=== PATIENT | male | born 1940 | race Caucasian/White ===

== ENCOUNTER → 2018-06-24 11:58 | Outpatient (CLI) | payer MEDICARE, OTHER, SELFPAY ==
--- NOTE | 2018-06-24 | DI.MRI.S_ITS ---
PROCEDURE: MR CERVICAL SPINE WO CON INDICATIONS: CERVICAL RADICULAPTHY TECHNIQUE: Noncontrast sagittal T1 spin echo and T2 fast spin echo, sagittal STIR, foraminal oblique sagittal T2 fast spin echo, and axial gradient echo or T2 fast spin echo through the cervical spine. COMPARISON: MR, C-SPINE WITHOUT CONTRAST, 12/03/2006, 12:52. FINDINGS: Image quality: Excellent. Alignment and Curvature: There is normal bony alignment. Bone Marrow: Marrow demonstrates normal overall signal. Spinal Cord: Visualized spinal cord has normal size and signal. No cerebellar tonsillar herniation. Paraspinous Soft Tissues: No paravertebral masses. Prevertebral soft tissues are normal in thickness. C2-C3: Loss of disc signal and height. No central stenosis. Mild bilateral facet hypertrophy. Mild bilateral neural foraminal narrowing. No neural impingement. C3-C4: Loss of disc signal and mild loss of disc height. Mild, diffuse disc bulge and mild right and severe left facet hypertrophy. No central stenosis. Mild bilateral uncovertebral joint hypertrophy. Moderate bilateral neural foraminal narrowing. No neural impingement. C4-C5: Loss of disc signal and height. Mild diffuse disc bulge. Mild right and moderate left facet hypertrophy. Mild bilateral uncovertebral joint hypertrophy no central stenosis. Moderate right and severe left neural foraminal narrowing with flattening deformity exiting left C5 nerve root. C5-C6: Loss of disc signal and height. Moderate, diffuse disc bulge. Mild ligamentum flavum hypertrophy. Mild bilateral facet hypertrophy. Mild bilateral uncovertebral joint hypertrophy. Severe narrowing of the central canal with slight flattening deformity of the cervical spinal cord. Severe bilateral neural foraminal narrowing and flattening deformity exiting C6 nerve roots. C6-C7: Loss of disc signal and height. Mild, diffuse disc bulge. Mild bilateral facet hypertrophy. Mild bilateral uncovertebral joint hypertrophy. No central stenosis. Severe bilateral neural foraminal narrowing with flattening deformity exiting C7 nerve roots. C7-T1: Loss of the signal. Mild, diffuse disc bulge. No central stenosis. No neural foraminal narrowing. No neural impingement. IMPRESSION: 1. Multilevel degenerative disc disease. 2. Multilevel facet arthropathy and uncovertebral joint hypertrophy. 3. Severe C5-C6 central canal narrowing. 4. Severe bilateral C5-C6 and C6-C7 neural foraminal narrowing. Moderate right and severe left C4-C5 neural foraminal narrowing. Moderate bilateral C3-C4 neural foraminal narrowing. Mild bilateral C2-C3 neural foraminal narrowing. 5. Slight flattened deformity of the exiting left C5 nerve root on the exiting bilateral C6 nerve roots and the exiting bilateral C7 nerve roots secondary to neural foraminal narrowing. Please correlate with clinical data. Dictated by: Laine Temple MD, PhD on 06/24/2018 at 15:23 Approved by: Laine Temple MD, PhD on 06/24/2018 at 16:17
--- NOTE | 2018-06-24 | DI.CT.S_ITS ---
PROCEDURE: CT LUMBAR SPINE WO CON INDICATIONS: Bilateral leg radicular pain TECHNIQUE: Noncontrast 3 mm thick sections acquired from the T12 level to the sacrum. Sagittal and coronal reformats were constructed. For radiation dose reduction, the following was used: automated exposure control. COMPARISON: A prior lumbar spine MRI is not available for review from the archive at the time of this dictation. FINDINGS: Image quality: Excellent. Bones: No acute vertebral body compression fractures. No suspicious lytic or blastic bony lesions. Central spinal caliber is of normal overall caliber. No pars defects. Moderate S-shaped scoliosis is seen, with a primary dextroconvex thoracolumbar component. Minimal retrolisthesis is seen at L1-L2. There is mild grade 1 anterolisthesis at the L5-S1 level. Postoperative changes are seen at the L5-S1 level, with bilateral pedicle screws. The left L5 screw is seen involving the L4-L5 disc. Left L1 screw is superiorly angled and partially involves the L5-S1 disc. The right-sided screws appear well placed. Vertical fixation rods are seen. No jose findings of hardware failure or hardware loosening are seen. Bone grafting material is noted. There has been removal of portions of the posterior elements. T12-L1: There is moderate to severe loss of disc height seen on the left. Vacuum disc phenomenon is seen at this level. Mild to moderate disc bulge is seen. Endplate irregularity and sclerosis can be seen, including bridging left-sided endplate osteophytes. There is moderate to severe left-sided and mild to moderate right-sided neural foraminal narrowing. Mild to moderate central canal narrowing is seen. L1-L2: Mild loss of disc height is seen. Vacuum disc phenomenon is seen at this level. Moderate generalized disc bulge is seen. Moderate bilateral neural foraminal narrowing is seen. Moderate foraminal mild to moderate central canal narrowing is seen. L2-L3: The disc height is relatively well-preserved. Mild generalized disc bulge is seen. Moderate facet joint hypertrophy is seen. There is moderate bilateral neural foraminal narrowing seen, right worse than left. At least moderate central canal narrowing is seen. L3-L4: Moderate to severe loss of disc height is seen on the right side. Vacuum disc phenomenon is seen at this level. Endplate irregularity and sclerosis can be seen. Bridging endplate osteophytes are seen on the right side. There is moderate to severe right-sided and at least moderate left-sided neural foraminal narrowing. Moderate to severe central canal narrowing is seen. L4-L5: The disc height is relatively well-preserved. Moderate generalized disc bulge is seen. Moderate to severe bilateral neural foraminal narrowing is seen. Moderate to severe central canal narrowing is seen. L5-S1: Partial vertebral body fusion can be seen posteriorly. There is mild to moderate loss of disc height. Postoperative changes are seen at this level. There is moderate to severe left-sided and at least moderate right-sided neural foraminal narrowing seen. No significant central canal narrowing is seen. There is fusion of the left sacroiliac joint anteriorly, as on series 2 image 75. Soft tissues: No retroperitoneal masses or hematomas. Prominent sigmoid diverticulosis is seen. No jose findings of active diverticulitis can be seen. Visualized aorta is normal in caliber. Atherosclerotic calcification is noted. IMPRESSION: S-shaped scoliosis and associated degenerative changes. The degenerative changes are most prominent at the L3-L4 and L4-L5 levels. Postoperative changes are seen at the L5-S1 level, including superior placement/angulation of the screws. Left sacroiliac joint fusion is seen. Prominent sigmoid diverticulosis is incidentally noted. Dictated by: Kevan Lacey M.D. on 06/24/2018 at 13:11 Approved by: Kevan Lacey M.D. on 06/24/2018 at 13:21
== END ==
PROVIDERS: PCP Family Medicine; Visit Provider Orthopaedic Surgery Orthopaedic Surgery of the Spine
DX: M50.11 Cervical disc disorder with radiculopathy, high cervical region (principal); M47.22 Other spondylosis with radiculopathy, cervical region; M48.02 Spinal stenosis, cervical region
CPT/HCPCS: 72131; 72141

== ENCOUNTER 2018-10-10 06:01 | Inpatient (IN) | payer MEDICARE, OTHER, SELFPAY ==
[2018-09-15 12:53] VITALS: BMI 26.9
[2018-10-10] VITALS (16 sets, daily range): BP systolic 121–170; BP diastolic 56–91; PULSE 71–97; RESP 9–17; TEMP 36.2–37.1; O2SAT 92–99; BMI 25.7
[2018-10-10] MEDS: LACTATED RINGERS 1,000 ML 42 ML IV ×2 (07:17→09:45)
--- NOTE | 2018-10-10 07:46 | PM.PREOP ---
Pre-operative Note Interval Note History & Physical reviewed/Exam performed by Physician: Yes Changes to H&P: No
--- NOTE | 2018-10-10 08:30 | SUR.OPER ---
Prone on spine table, head in foam head support, padded chest and pelvic supports, gel pad at knees, lower legs supported by pillows; nipples, genitalia and toes free of pressure, arms secured on foam padded arm boards at <90 degrees abduction. Tape over blanket at thigh secured to table.
[2018-10-10] MEDS: BUPIVACAINE 0.25% W/ EPI VIAL 30 ML INJ (08:42)
[2018-10-10] MEDS: CEFAZOLIN 2 GM/100 ML FROZ.PIGGY IV ×2 (08:46→18:17)
[2018-10-10] MEDS: BUPIVACAINE LIPOSOME 266 MG/20 ML VIAL INJ (11:22)
--- NOTE | 2018-10-10 13:29 | P.OP_ITS ---
Operative Date/Time/Diagnoses Date of procedure: 10/10/18 Time of procedure: 08:20 Pre-op diagnosis: 1. L3-4, L4-5, L5-S1 spinal stenosis 2. Hardware loosening L5 and S1 3. Lumbar scoliosis 4.Hx of L5-S1 fusion with pseudoarthrosis Post-op diagnosis: same Procedure & Clinicians Procedure: 1. L3-4 L4-5 Postero-lateral and posterior interbody fusion 2. L3-4 L4-5 interbody cage placement. 3. L3-4 L4-5 decompressive laminectomy with bilateral facetecomies 4. L3-4 L4-5 L5-S1 Posterior segmental instrumentation 5. L5-S1 posterior non-segmental hardware removal 6. L5-S1 exploration of fusion with left hemilaminectomy 7. L5-S1 posterolateral fusion 8. [employer] of bone marrow from iliac crest 9. Utilization of microsurgical technique and operating microscope Same procedure as scheduled: Yes Indications: Patient has been having chronic back pain and worsening lumbar radiculopathy. Patient had history of lumbar instrumented fusion more than 10 years ago with progressively worsening pain and CT showing loosening of hardware and pseudoarthrosis. Patient failed multiple conservative management with worsening pain weakness and numbness in her lower extremity. Patient has been having difficulty performing activity of daily living. After discussing risks benefits of treatment options, patient elected proceed with surgery. Surgeon: Lm Rashid Nature Photographer: Lucrecia Kim Click Yes if Unassisted: Yes Anesthesia Type: General Operative Notes Closure Type: primary Specimen(s): none sent Prosthetic devices, grafts, tissues, transplants, or devices: Globus Revolve screws, Rise cages Applied: catheter Estimated Blood Loss (mL): 150 Blood products transfused: none Procedure in detail: Patient was seen in the preoperative area. Risks and benefits of the surgery was discussed with the patient. Informed consent was obtained from the patient and placed in the chart. Surgical site was marked. Patient was taken to the operative room. General anesthesia was administered. Prophylactic antibiotic was given to the patient less than 30 min before the incision was made. Patient was placed into a prone position on the Tripp table. Patient's back was then prepped and draped in the sterile fashion. Time- out was performed at this time. Using patient's previous scar incision was made over the L3-S1 interval on the left side. Fascia was incised in line with skin incision. Patient's previously placed hardware over the L5-S1 level was identified by dissecting down to the level the hardware using a Bovie and a Frank. The locking caps which was removed using globus screwdriver. The locking adiel was then removed from the tulips of the pedicle screws using a Jennie. The pedicle screws were then removed using the screwdriver. The screws were found to have poor purchase. The Globus and MARS retractors was then placed into the wound and docked onto the L3 and L4 lamina using C-arm guidance. Using microsurgical technique and operating microscope a laminectomy facetectomy was performed by removing the L3 and L4 lamina and the L3-4 and L4-5 facet. The disc space at L3-4 L4-5 level was identified next. And a total diskectomy was performed at L3-4 L4-5 level. The endplates were decorticated using a rasp and shaver. Patient was found have severe neural foramen stenosis as well as central stenosis. More than 75% of bilateral facets removed during the process of decompression rendering the lumbar spine further unstable at the L3-4 L4-5 level. Patient required a fusion all 3 levels. The total diskectomy and decortication was performed at L3-4 L4-5 level in order to to accomplish a L3-4 L4-5 fusion. The local bone from the laminectomy and facetectomy was saved for local bone grafting. After the total diskectomy and decortication was completed, Bio4 bone graft material was combined with local bone that was harvested earlier. At this time, a separate skin is incision was made over the iliac crest. A Jamshidi needle was inserted into the iliac crest through a separate skin incision. 5 cc of bone marrow aspiration was obtained through the separate skin incision using a Jamshidi needle from the iliac crest. The bone marrow aspiration was combined with local bone and the Bio4 bone grafting material. The bone grafting material was placed into the L3-4 L4-5 interbody space along with a expandable cage. The cage was expanded to its maximum height using the torque limiting screwdriver. At this time a mirror image incision was made on the right side. The fascia was incised in line with the skin incision. Patient's previously placed hardware on the right side was then removed in the same fashion as it was on the left side. The hardware was also found to have poor purchase. The fusion mass on the right side was exposed by performing a right-sided hemilaminectomy at L5-S1 level. The hemilaminectomy was performed using the Kerrison rongeur to undercut the lamina as well removing additional epidural scar tissue for purpose of decompressing the epidural space. The fusion mass was explored and was found have visible motion indicating pseudoarthrosis. Globus MARS retractor was inserted and docked onto the L3-4 L4-5 L5-S1 posterolateral gutter. Using the power drill, posterior-lateral decortication was performed at L3-4 L4-5 L5-S1 level until bleeding cortical bone was identified. The remaining bone grafting material was placed into the L3-4 L4-5 L5-S1 posterior lateral gutter he order to accomplish posterolateral fusion at the L3-4-L4-5 L5-S1 level. Using the double C-arm technique, pedicle screws were placed into the L3-L4 L5 and S1 pedicles bilaterally. This was done by placing the Jamshidi needle into the pedicles, then placing the guidewires over the Jamshidi needle, and finally placing the cannulated screws over the guidewires bilaterally. After the pedicle screws were placed, 2 titanium rods was locked into the heads of the pedicle screws using locking caps and torque limiting screwdriver. The right L5 pedicle screw was found to have poor purchase after multiple insertions and was removed from the pedicle. After all the hardware was placed, and confirmed with AP and lateral C-arm imaging, the wound was then irrigated with sterile normal saline and packed with Ray-Brittney gauze for 3 min to accomplish hemostasis. After the gauze was removed the deep fascia was closed with #1 Vicryl suture. The subcutaneous layer was closed with 2-0 Vicryl. The skin was closed with skin nilton. Patient tolerated the procedure well. There were no complications. Complications: none Condition: stable Disposition: PACU Plan for aftercare: Admit to inpatient hospital
--- NOTE | 2018-10-10 13:34 | DI.RAD.S_ITS ---
PROCEDURE: XR LUMBAR SPINE 2-3V INDICATIONS: L3-4, L4-5 TLIF. L5-S1 DONE ELSEWHERE. TECHNIQUE: 2 views of the lumbar spine were acquired. COMPARISON: [facility], CT, CT LUMBAR SPINE WO CON, 06/24/2018, 12:16. FINDINGS: 2 limited intraoperative fluoroscopically stored images of the lower lumbar spine were obtained for intraoperative hardware localization purposes. These images are not meant for diagnostic purposes. Intraoperative findings related to a lumbosacral revision/fusion procedure are present. IMPRESSION: Intraoperative images obtained during the patient's lumbar fusion procedure. Dictated by: Tera York M.D. on 10/10/2018 at 13:08 Approved by: Tera York M.D. on 10/10/2018 at 13:10
[2018-10-10] MEDS: HYDROMORPHONE 2 MG INJ 0.5 MG IV ×3 (14:02→14:51)
[2018-10-10] MEDS: hydrOXYzine 50 MG/ML INJ 25 MG IM (14:21)
[2018-10-10] MEDS: LORazepam 2 MG/ML SYRINGE 0.5 MG IV (14:30)
--- NOTE | 2018-10-10 15:06 | SUR.PHASEI ---
Note regarding skin around surgical site: A red squared boarder is noted around the surgical site around dressing. Red and blanchable; no blisters or open sores noted.
[2018-10-10] MEDS: SODIUM CHLORIDE 0.9% 1,000 ML 100 ML IV (16:09)
[2018-10-10] MEDS: hydrOXYzine pamoate 25 MG CAPSULE PO ×2 (17:11→21:59)
[2018-10-10] MEDS: OXYCODONE IR 5 MG TABLET 10 MG PO ×2 (17:11→20:27)
[2018-10-10] MEDS: HYDROMORPHONE 1 MG INJ 0.5 MG IV ×2 (18:19→21:59)
[2018-10-10] MEDS: DOCUSATE 100 MG CAPSULE PO (20:28)
[2018-10-10] MEDS: SENNOSIDES 8.6 MG TABLET 17.2 MG PO (20:28)
[2018-10-11] VITALS (12 sets, daily range): BP systolic 113–165; BP diastolic 63–91; PULSE 73–94; RESP 12–20; TEMP 36.7–38.3; O2SAT 94–98
[2018-10-11] MEDS: OXYCODONE IR 5 MG TABLET 10 MG PO (00:14)
[2018-10-11] MEDS: SODIUM CHLORIDE 0.9% 1,000 ML 100 ML IV (01:55)
[2018-10-11] MEDS: CEFAZOLIN 2 GM/100 ML FROZ.PIGGY IV (03:21)
--- NOTE | 2018-10-11 04:31 | PC.NURSE ---
pt AO and receptive to care. Took over care for pt around 0100. Mac draining to gravity. NS infusing at 100/hr. Patient reports pain of 3-4/10 while still and states it can hit 10/10 with movement. Pain medications administered prior to my care at 0015. Patient hesitant and refuses to reposition to his side, although he reports sleeping better on either side vs his back. Patient reporting the IV pump is being to loud so there is a sheet draped over it in hopes to decrease residual noise. CMS intact (baseline tingling in all extremities per pt). At 0400, pt reported feeling bubbles go through IV tubing and into arm and is very concerned. I assessed the lines, his IV site, and flushed but all looked well. I offered earplugs but pt declined. Cefazolin infused late at 0300 since the first post-op dose was almost 3 hours late. pt tolerated ABX infusion well.
[2018-10-11 06:24] LABS: Hematocrit 37.7 % (41-53); Hemoglobin 12.7 g/dL (13.5-17.5)
--- NOTE | 2018-10-11 07:58 | PM.PNPO.1 ---
Subjective Date Patient Seen: 10/11/18 Interval history: Patient seen bedside s/p L5-S1 Lumbar HWR,Explor fusion,Repeat Lami,Reinsertion HWR,L3-4,L4-5,L5-S1 TLIF by Dr[address] Rashid on 10/10/18. Patient is POD #1. He is doing well, he is having lower back pain but that it was not unexpected. He denies CP, SOB, nausea/vomiting, and numbness/tingling. He has not been up with therapy yet. Exam Vital Signs (past 8 hours): - 10/11/18 00:20 10/11/18 03:30 Temperature 98.1 F 98.8 F Pulse Rate 87 73 Respiratory Rate 12 16 Blood Pressure 165/78 H 147/65 H Pulse Oximetry 98 94 Oxygen Delivery Method Room Air Oxygen Flow Rate 0 Narrative Exam Narrative: Well-developed, well-nourished, no acute distress. Alert and oriented to person, place, and time. Dressing on lumbar spine is clean, dry, and intact with no signs of drainage. Minimal erythema and generalized swelling around the surgical site. Neurovascularly intact in bilateral lower extremities with soft and compressible calves. Range of motion intact bilateral lower extremities. Objective Labs Result Diagrams: 10/11/18 06:03 Labs: Laboratory Results - last 24 hr 10/11/18 06:03 Hgb 12.7 L Hct 37.7 L Assessment & Plan Post-op Postoperative Procedures Operation Date: 10/10/18 07:45 Actual Procedures Side Surgeon p L5-S1 Lumbar HWR,Explor fusion,Repeat Lami,Reinsertion HWR,L3-4,L4-5,L5-S1 TLIF Lm Rashid MD 1. POD #1 s/p above procedure-continue with pain management, up with therapy, bowel regiment. Dispo-based on PT clearance and pain control, probably in the next two days. Quality VTE Deep Vein Thrombosis/Pulmonary Embolism Present on Admission: No
--- NOTE | 2018-10-11 08:55 | CM.DANOTE ---
DCP: Case received, EMR reviewed and met with patient. Introduced self and role. DCP template completed with information currently available. Patient is a 78 year old male who admitted yesterday morning to the care of the surgical team. PCP: Dr. Sethi. Payer: confirmed; Medicare/1-4 All. Patient came to hospital for surgical procedure. Had Postero-lateral L3-4, L4-5 fusion. Patient has had history of prior lumbar fusion in 2006 at [facility]. Met with patient in room. He stated, that they really messed up the procedure then, and this has caused me to have increased pain. Patient is alert and oriented. Lives alone on [place], but did state that he has supportive friends. 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 He stated that he uses no walker or cane. Stated that his big issue has been increased back pain, and has gotten harder to walk and stand for prolonged time. He stated that he has no concerns about going home after surgery, his friends can help if he needs them. Is aware that he will be working with physical therapy to see how he progresses here. Main issue for him is pain control at this time. P: DCP to continue to assess. Will see how he progresses with physical therapy before making determination of going home. Yamile Manley RN/Personnel Associate
[2018-10-11] MEDS: DOCUSATE 100 MG CAPSULE PO ×2 (08:56→19:56)
--- NOTE | 2018-10-11 09:55 | PT.IIE ---
Current Diagnoses Other secondary scoliosis, lumbar region (10/10/18) Spinal stenosis, lumbar region without neurogenic claudication (10/10/18) Unspecified fracture of unspecified lumbar vertebra, initial encounter for closed fracture (10/10/18) Other mechanical complication of other internal orthopedic devices, implants and grafts, initial encounter (10/10/18) Surgery Performed Operation Date: 10/10/18 07:45 Actual Procedures p L5-S1 Lumbar HWR,Explor fusion,Repeat Lami,Reinsertion HWR,L3-4,L4-5,L5-S1 TLIF - Lm Rashid MD Surgical History (Last Updated 09/15/18 @ 13:18 by Елена Ireland, RN) History of lumbar fusion (Acute ~2006) Hx of hernia repair (Acute) Hx of shoulder surgery (Acute ~2004) Hx of tonsillectomy (Acute) Medical History (Last Updated 09/15/18 @ 13:20 by Елена Ireland RN) Anxiety (Acute ~2001) Arrhythmia (Acute) Arthritis (Acute) Chest pain (Acute) Chronic low back pain (Acute) Depression (Acute ~2001) Diverticulitis (Acute) Diverticulosis (Acute) Fragile skin (Acute) HTN (hypertension) (Acute) Hip pain, bilateral (Acute) Hyperlipidemia (Acute) Knee pain, bilateral (Acute) LBBB (left bundle branch block) (Acute) Neck pain (Acute) PVC's (premature ventricular contractions) (Acute) Pneumonia (Acute) Post-nasal drip (Acute) Scarring (Acute) Thoracogenic scoliosis, thoracolumbar region (Acute) Physical Therapy Inpatient Evaluation/Re-Eval M1 PT/OT-IP Prior Functional Status Start: 10/11/18 10:27 Freq: NEEDED Status: Active Protocol: Document 10/11/18 10:24 [facility] (Rec: 10/11/18 10:40 [facility] [id number]) Medical Review Prior Functional Status Medical History Reviewed Yes Mobility and Gait mod. indep. with SPC or walking stick Activities of Daily Living and IADL's mod. indep I/ADLs Social History Household Members none Living Arrangements House Number of Floors (Floors) Two Floors Number of Stairs To Enter/Railing? 5 SE L rail ascending. Pt states he will stay on main level, has [place] shower with a threshold to step in. Lives alone Home Environment Standard Height Toilet Walk in Shower Home Equipment Straight Cane Additional Social History Comment Pt states friends can stop by to assist but will not stay with him. His neighbor may have a 4WW but does not have FWW. Pt underwent L5-S1 hardware removal (had previous surgery in 2006 @ [facility]), L3-S1 TLIF on 10/10/18. M2 PT-IP Current Condition Start: 10/11/18 10:27 Freq: NEEDED Status: Active Protocol: Document 10/11/18 10:24 [facility] (Rec: 10/11/18 10:40 [facility] [id number]) Physical Therapy Current Condition Current Condition Evaluation Date 10/11/18 Treatment Diagnosis L5-S1 HWR, L3-S1 TLIF 10/10/18, impaired mobility and activity tolerance Onset Date 10/10/18 Precautions Lumbar Precautions Log Roll No Twisting Limit Bending Lifting Restriction of 10 lbs Gait Belt above Incisional Area Weight Bearing Status Weight Bearing Status Weight Bear as Tolerated M3 PT-IP Subjective Start: 10/11/18 10:27 Freq: NEEDED Status: Active Protocol: Document 10/11/18 10:24 [facility] (Rec: 10/11/18 10:40 [facility] [id number]) Subjective Physical Therapy Visit Type Type Initial Evaluation Visit Start Time 09:55 Visit Stop Time 10:24 Total Visit Minutes 29 Number of UNIX ANALYST Visits 0 Physical Therapy Visit Comments Patient Comments pt states that he would like to be able to go home, thinks he can do it in a few days. Patient Goals to go home Therapy Pain Assessment Pain When Pain Assessed At Rest Pain Present Pain Present Pain Reported Location Lower Back Intensity 4 Scale Used Numeric (1 - 10) M4 PT-IP Mobility and Gait Start: 10/11/18 10:27 Freq: NEEDED Status: Active Protocol: Document 10/11/18 10:24 [facility] (Rec: 10/11/18 10:40 [facility] [id number]) PT-Bed Mobility Assessment Rolling Type of Rolling Log Rolling Level of Assist Contact Guard Assistance Supine to Sit Supine to Sit Contact Guard Assistance Scooting Scooting to Edge of Bed Standby Assistance PT-Transfer Assessment Sit to and From Stand Sit to and from Stand Contact Guard Assistance Equipment Transfer Assistive Device Gait Belt Front Wheeled Walker Transfers Transfer Destination Bed Transfer Technique Stand Step Pivot Transfer Ability Level of Assist Contact Guard Assistance Comments Mobility Comments pt refused chair, states he would like pain meds and wants to try to sleep before lunch Gait Assessment Gait Gait Assistance Required: Contact Guard Assist Distance (Feet) 40 Assistive Devices Assistive Device Gait Belt Front Wheeled Walker Gait Deviations General Gait Pattern Antalgic Decreased Stride Length Decreased Feet Clearance Wide Based Gait Factors Limiting Gait Function Factors Limiting Gait Function Decreased Activity Tolerance Decreased Strength Limited Range of Motion Pain Poor Balance Comments Gait Comments HR 90 bpm after gait, O2 saturation 99% on RA PT-Balance Assessment Sitting Balance and Reactions Static Sitting Balance Ability Good Dynamic Sitting Balance Ability Good Standing Balance and Reactions Static Standing Balance Ability Fair Dynamic Standing Balance Ability Poor Device Used FWW M5 PT-IP Objective Assessments Start: 10/11/18 10:27 Freq: NEEDED Status: Active Protocol: Document 10/11/18 10:24 [facility]11[facility]18 10[id number] Orientation Orientation/Cognition Level of Alertness Alert Strength Comments Strength Comments no MMT tested due to recent surgery Sensation Assessment Comments Sensation Comments impaired but present sensation to light touch B feet and calves; pt admits to L hand tingling M6 PT-IP Treatment Start: 10/11/18 10:27 Freq: NEEDED Status: Active Protocol: Document 10/11/18 10:24 [facility] (Rec: 10/11/18 10:[id number] Therapy Treatment Education Education Provided Precautions Post-Op Packet Safety M7 PT-IP Assessment and Plan Start: 10/11/18 10:27 Freq: NEEDED Status: Active Protocol: Document 10/11/18 10:24 [facility] (Rec: 10/11/18 10:[id number] PT Summary Assessment and Plan Potential Rehabilitation Potential Good Status of Condition at Evaluation Stable Summary Impairments Pain Strength Balance Bed Mobility Transfers Gait Activity Tolerance Assessment Summary POD #1. Pt able to perform log roll and gait with SBA to CGA , limited to 40 ft of ambulation due to fatigue and pain. He is motivated to return home, but is not yet cleared by PT or safe to do so . Pt lives alone, therefore he must be indep and safe with all mobility in order to be cleared to d/c home, and will need stair training prior to d/c. Pt does not have a FWW, will need one prior to d/c, as he likely would not be able to maintain good standing upright posture with use of a borrowed 4WW given the seat does not allow the pt to stand erect and has less off- loading assistance compared to a FWW. Goals Bed Mobility Goal Independent Transfer Goal Independent Gait Goal Standby Assistance Front Wheel Walker Gait Distance 150 Other Goals up/down 5 steps with L ascending rail and SBA Days to Meet Goals 3 Frequency of Treatment Frequency Of Treatment Twice a Day Treatment Plan Physical Therapy Treatment Plan Bed Mobility Training Transfer Training Gait Training Therapeutic Exercise Balance Retraining Post Op Education Discharge Planning Hot or Cold Pack Neuromuscular Re-ed Other Recommendations and Next Treatment prog. gait, standing balance/ Focus tolerance, review precautions; stairs prior to d/c. Recommendations To Nursing Amount of Assist Needed 1 Person Assist Discharge Recommendations PT Discharge Recommendations Home with Assistance Equipment Needed for Home Before FWW Discharge
--- NOTE | 2018-10-11 09:58 | PC.NURSE ---
Addendum entered by Sridhar Alejandra R.N. 10/11/18 14:01: Pt working with O.T. this afternoon. Pain meds given earlier continue to help. Visitors in. Original Note: alert and oriented. follows commands, voices concerns appropriately. Very concerned about moving or turning due to back surgery. Meds per orders, PT Lenin in seeing Pt presently. Jagdeep. po and meds without difficulty. Continue per orders.
[2018-10-11] MEDS: OXYCODONE IR 5 MG TABLET PO ×3 (10:37→18:06)
--- NOTE | 2018-10-11 14:20 | OT.IP.EVAL ---
Current Diagnoses Other secondary scoliosis, lumbar region (10/10/18) Spinal stenosis, lumbar region without neurogenic claudication (10/10/18) Unspecified fracture of unspecified lumbar vertebra, initial encounter for closed fracture (10/10/18) Other mechanical complication of other internal orthopedic devices, implants and grafts, initial encounter (10/10/18) Surgery Performed Operation Date: 10/10/18 07:45 Actual Procedures p L5-S1 Lumbar HWR,Explor fusion,Repeat Lami,Reinsertion HWR,L3-4,L4-5,L5-S1 TLIF - Lm Rashid MD Past Medical History (Last Updated 09/15/18 @ 13:20 by Елена Ireland RN) Anxiety (Acute ~2001) Arrhythmia (Acute) Arthritis (Acute) Chest pain (Acute) Chronic low back pain (Acute) Depression (Acute ~2001) Diverticulitis (Acute) Diverticulosis (Acute) Fragile skin (Acute) HTN (hypertension) (Acute) Hip pain, bilateral (Acute) Hyperlipidemia (Acute) Knee pain, bilateral (Acute) LBBB (left bundle branch block) (Acute) Neck pain (Acute) PVC's (premature ventricular contractions) (Acute) Pneumonia (Acute) Post-nasal drip (Acute) Scarring (Acute) Thoracogenic scoliosis, thoracolumbar region (Acute) Surgical History (Last Updated 09/15/18 @ 13:18 by Елена Ireland RN) History of lumbar fusion (Acute ~2006) Hx of hernia repair (Acute) Hx of shoulder surgery (Acute ~2004) Hx of tonsillectomy (Acute) Occupational Therapy Inpatient Evaluation/Re-Eval M1 PT/OT-IP Prior Functional Status Start: 10/11/18 10:27 Freq: NEEDED Status: Active Protocol: Document 10/11/18 14:20 [facility] (Rec: 10/11/18 18:18 [facility] [id number]) Medical Review Prior Functional Status Medical History Reviewed Yes Diet/Fluid Consistency Regular Communication WNL Mobility and Gait mod. indep. with SPC or walking stick Activities of Daily Living and IADL's mod. indep wiht all self care, IADLS, driving Prior Functional Level (Other details) Pt states he has neighbors/ friends who can assist PRN with calibration specialist after d/ c. Social History Household Members none Living Arrangements House Number of Floors (Floors) Two Floors Number of Stairs To Enter/Railing? 5 SE L rail ascending. Pt states he will stay on main level, has walk in shower with a threshold to step in. Home Environment Standard Height Toilet Walk in Shower Home Equipment Straight Cane Additional Social History Comment Pt states friends can stop by to assist but will not stay with him. His neighbor may have a 4WW but does not have FWW. Pt underwent L5-S1 hardware removal (had previous surgery in 2006 @ [facility]), L3-S1 TLIF on 10/10/18. M2 OT-IP Current Condition Start: 10/11/18 18:06 Freq: Status: Active Protocol: Document 10/11/18 14:20 [facility] (Rec: 10/11/18 18:18 [facility] [id number]) Occupational Therapy Current Condition Current Condition Evaluation Date 10/11/18 Treatment Diagnosis decreased self care/mobility s /p L5-S1 hardware removal,L3- S1 TLIF Diagnosis Onset Date 10/10/18 Post Operative Precautions Lumbar Precautions Log Roll No Twisting Limit Bending Lifting Restriction of 10 lbs Gait Belt above Incisional Area M3 OT- IP Subjective and Pain Start: 10/11/18 18:06 Freq: Status: Active Protocol: Document 10/11/18 14:20 [facility] (Rec: 10/11/18 18:18 [facility] [id number]) OT- Subjective Occupational Therapy Visit Type Type Initial Evaluation Visit Start Time 13:47 Visit Stop Time 14:20 Total Visit Minutes 33 Notes Pt is familiar with lumbar spine precautions and adapted ADLS from previous surgery. Occupational Therapy Visit Comments Patient Comments I have been through this before and have some of that equipment. Patient/Caregiver Goals to go home and have less back pain during daily tasks OT Pain Assessment Pain When Pain Assessed After Treatment Pain Present Pain Present Pain Reported Location Posterior Neck Intensity 4 Scale Used Numeric (1 - 10) Description Aching Acute Pain Behaviors Guarding Management Techniques Distraction Timing of Activity with Medications M4 OT- IP ADL's Start: 10/11/18 18:06 Freq: Status: Active Protocol: Document 10/11/18 14:20 [facility] (Rec: 10/11/18 18:18 [facility] [id number]) OT [id number]-[id number] General Evaluation Self-Feeding Ability Independent OT ADL-Grooming Comments OT Grooming Comments pt declines to get up to sink due to concerns about pain level; provided education re: body mechanics OT ADL-Oral Care Comments Oral Care Comments provided education re: body mechanics OT ADL-Dressing Assistive Devices Dressing Assistive Devices Long Handled Shoe Horn Satellite Dish Repairer Sock Aid Comments OT Dressing Comments Pt familiar with adapted lower body dressing techniques. He has production staff worker and long shoe horn from previous surgery. Provided education re: sock aid and provided one to pt at his request. He declines to practice any lower body dressing. OT ADL-Toileting Comments OT Toileting Comments pt still has merino in place. He plans to borrow RTS OT ADL-Bathing Bathing Type Bathing Type Shower Comments OT Bathing Comments provided education re: body mechanics, he plans to stand due to very small shower stall M5 OT- IP IADL's Start: 10/11/18 18:06 Freq: Status: Active Protocol: Document 10/11/18 14:20 [facility] (Rec: 10/11/18 18:18 [facility] [id number]) OT-Instrumental Activities of Daily Living Deficits IADL Deficits Identified Deficits Home Safety Awareness Awareness of Need for Assistance at Home Good Awareness Ability to Problem Solve Emergency Able to Problem Solve Situations Medication Management Medication Management No Deficits Identified Money Management Money Management No Deficits Identified Meal Preparation Meal Preparation No Deficits Identified Meal Preparation Comments Pt states he is stocked with food and neighbors will assist with some meals Army Ranger Army Ranger Caregiver Provides Assist Army Ranger Comments Pt states friends and neighbors can assist PRN with calibration specialist Driving Driving Caregiver Provides Assist Driving Comments friends can assist until pt able M6 OT- IP Functional Cognition Start: 10/11/18 18:06 Freq: Status: Active Protocol: Document 10/11/18 14:20 [facility] (Rec: 10/11/18 18:18 [facility] [id number]) Cognitive Factors Limiting Selfcare Function Cognitive Ability Level of Alertness Alert Patient Orientation Name Age Birthday Month Date Year Day of Week Place Situation Attention Span Ability Capable of Focused Attention Capable of Sustained Attention Ability to Follow Commands Able to Follow One Step Commands Memory Description No Deficits Noted Safety Awareness No Deficits Noted Problem Solving Ability No deficits Noted Cognitive Comments Cognitive Assessment Comments Pt familiar with lumbar spine precautions from previous surgery. OT- Vision and Hearing OT- Hearing Assessment OT- Hearing Assessment WFL OT- Vision Assessment Visual Acuity WFL M7 OT- IP Mobility and Balance Start: 10/11/18 18:06 Freq: Status: Active Protocol: Document 10/11/18 14:20 [facility] (Rec: 10/11/18 18:18 [facility] [id number]) OT-Transfer Assessment Comments Mobility Comments Pt declined to mobilize out of bed this session due to pain level; wants to wait for P.T. OT- Gait Assessment Comments Gait Ability Comments see P.T. notes OT- Balance Assessment Comments Other Balance Tests/Deviations/Treatment See P.T. notes : M8 OT- IP Objective Assessments Start: 10/11/18 18:06 Freq: Status: Active Protocol: Document 10/11/18 14:20 [facility] (Rec: 10/11/18 18:18 [facility] [id number]) OT Gross Range of Motion Upper Extremity Range of Motion Assessment Within Functional Limits OT Strength Upper Extremity Strength Assessment Within Functional Limits OT- Coordination Assessment Comments Coordination Comments BUE WFL OT-Muscle Tone Assessment Muscle Tone WNL Yes OT Sensation Assessment Comments Summary Comments BUE WNL per pt Edema Edema Absent M9 OT- IP Assessment and Plan Start: 10/11/18 18:06 Freq: Status: Active Protocol: Document 10/11/18 14:20 [facility] (Rec: 10/11/18 18:18 [facility] [id number]) OT Summary Assessment and Plan Potential Rehabilitation Potential Good Analytic Complexity at Evaluation Low Summary OT Impairments Pain Progress Towards Goals Goals Met Assessment Summary Low complexity OT assessment and all education completed in one session re: lumbar spine precautions, posture, chair selection, adapted ADLS, bathroom safety equipment options, car transfers. Pt familiar with all information from previous back surgery and does not feel he needs any more OT services here. Pt will have assist from friends and neighbors after D/C. OT to sign off. Frequency of Treatment Frequency Of Treatment Discharge Discharge Recommendations OT Discharge Recommendations Home with Assistance Home Equipment Needs provided sock aid
--- NOTE | 2018-10-11 14:56 | PT.IPTN ---
Current Diagnoses Other secondary scoliosis, lumbar region (10/10/18) Spinal stenosis, lumbar region without neurogenic claudication (10/10/18) Unspecified fracture of unspecified lumbar vertebra, initial encounter for closed fracture (10/10/18) Other mechanical complication of other internal orthopedic devices, implants and grafts, initial encounter (10/10/18) Surgery Performed Operation Date: 10/10/18 07:45 Actual Procedures p L5-S1 Lumbar HWR,Explor fusion,Repeat Lami,Reinsertion HWR,L3-4,L4-5,L5-S1 TLIF - Lm Rashid MD Physical Therapy Treatment Note M2 PT-IP Current Condition Start: 10/11/18 10:27 Freq: NEEDED Status: Active Protocol: Document 10/11/18 10:24 [facility] (Rec: 10/11/18 10:40 [facility] [id number]) Physical Therapy Current Condition Current Condition Evaluation Date 10/11/18 Treatment Diagnosis L5-S1 HWR, L3-S1 TLIF 10/10/18, impaired mobility and activity tolerance Onset Date 10/10/18 Precautions Lumbar Precautions Log Roll No Twisting Limit Bending Lifting Restriction of 10 lbs Gait Belt above Incisional Area Weight Bearing Status Weight Bearing Status Weight Bear as Tolerated M3 PT-IP Subjective Start: 10/11/18 10:27 Freq: NEEDED Status: Active Protocol: Document 10/11/18 14:56 [facility] (Rec: 10/11/18 16:29 [facility] [id number]) Subjective Physical Therapy Visit Type Type Treatment Note Visit Start Time 14:56 Visit Stop Time 15:19 Total Visit Minutes 23 Number of AIR SUPPORT OPERATIONS OPERATOR Visits 0 Physical Therapy Visit Comments Patient Comments pt agreeable to ambulate, has not had a BM yet. Therapy Pain Assessment Pain When Pain Assessed At Rest Pain Present Pain Present Pain Reported Location Lower Back Intensity 4 Scale Used Numeric (1 - 10) M4 PT-IP Mobility and Gait Start: 10/11/18 10:27 Freq: NEEDED Status: Active Protocol: Document 10/11/18 14:56 [facility] (Rec: 10/11/18 16:29 [facility] [id number]) PT-Bed Mobility Assessment Rolling Type of Rolling Log Rolling Level of Assist Independent Supine to Sit Supine to Sit Independent Sit to Supine Sit to Supine Independent Scooting Scooting to Edge of Bed Independent PT-Transfer Assessment Sit to and From Stand Sit to and from Stand Standby Assistance Use of Upper Extremities Equipment Transfer Assistive Device Gait Belt Front Wheeled Walker Transfers Transfer Destination Bed Transfer Technique Stand Step Pivot Transfer Ability Level of Assist Standby Assistance Gait Assessment Gait Gait Assistance Required: Standby Assistance Distance (Feet) 160 Assistive Devices Assistive Device Gait Belt Front Wheeled Walker Gait Deviations General Gait Pattern Antalgic Decreased Stride Length Decreased Feet Clearance Wide Based Gait Factors Limiting Gait Function Factors Limiting Gait Function Decreased Activity Tolerance Limited Range of Motion Pain M5 PT-IP Objective Assessments Start: 10/11/18 10:27 Freq: NEEDED Status: Active Protocol: Document 10/11/18 10:24 [facility] (Rec: 10/11/18 10:40 [facility] [id number]) Orientation Orientation/Cognition Level of Alertness Alert Strength Comments Strength Comments no MMT tested due to recent surgery Sensation Assessment Comments Sensation Comments impaired but present sensation to light touch B feet and calves; pt admits to L hand tingling M6 PT-IP Treatment Start: 10/11/18 10:27 Freq: NEEDED Status: Active Protocol: Document 10/11/18 14:56 [facility] (Rec: 10/11/18 16:29 [facility] [id number]) Physical Therapy Treatment Education Education Provided Precautions Safety M7 PT-IP Assessment and Plan Start: 10/11/18 10:27 Freq: NEEDED Status: Active Protocol: Document 10/11/18 14:56 [facility] (Rec: 10/11/18 16:29 [facility] [id number]) PT Summary Assessment and Plan Summary Assessment Summary POD #1. Pt able to tolerate increased gait without increased pain, although he did have pain rated 4/10 throughout. Pt is indep. with bed mobility at this time and is safe with bed mobility. Pt will need to be able to tolerate stairs prior to d/c, but is improving and likely be able to manage safely at home when medically stable. Goals Bed Mobility Goal Independent Transfer Goal Independent Gait Goal Standby Assistance Front Wheel Walker Gait Distance 150 Other Goals up/down 5 steps with L ascending rail and SBA Days to Meet Goals 3 Frequency of Treatment Frequency Of Treatment Twice a Day Treatment Plan Other Recommendations and Next Treatment stairs, progress gait as Focus tolerated. Recommendations To Nursing Amount of Assist Needed 1 Person Assist Discharge Recommendations PT Discharge Recommendations Home with Assistance Equipment Needed for Home Before FWW Discharge
[2018-10-11] MEDS: ACETAMINOPHEN 325 MG TABLET 650 MG PO (18:07)
--- NOTE | 2018-10-11 19:05 | PC.NURSE ---
Pt has reported to staff several times this shift unable to rest well on powered bed mattress. Asks if this can be deactivated. Explained to pt this will result in inability to operate head/foot controls of bed. Pt states this is not of importance. Bed was unplugged. Pt has demonstrated use of call light and has not repeated impulsive movement out of bed at beginning of shift.
[2018-10-11] MEDS: SENNOSIDES 8.6 MG TABLET 17.2 MG PO (19:56)
[2018-10-11] MEDS: SODIUM CHLORIDE 0.9% FLUSH 10 ML IV (19:57)
[2018-10-11] MEDS: MAGNESIUM HYDROXIDE 30 ML UDC PO (20:08)
--- NOTE | 2018-10-11 21:58 | PC.NURSE ---
Safe hand off from Yohannes GAGNON, Pt has had changes in temp today. Pt started at 100.1, went down to 99.1, and then climbed back up at 101.5, IS was enforced, along with Tylenol. bingo caller doctor, DR. Mckenzie notified at 1999. Dr. Mckenzie had us implement more IS time, pt. sitting up in chair and Cooling measured. Ice packs applied to groin area. At 2114 Pt's temp returned to normal level of 98.4. If patient's temp returns to 101.[address] Mckenzie, to re-evaluate.
[2018-10-12] VITALS (12 sets, daily range): BP systolic 131–155; BP diastolic 67–106; PULSE 75–99; RESP 13–20; TEMP 36.7–38.4; O2SAT 93–98
[2018-10-12] MEDS: OXYCODONE IR 5 MG TABLET 10 MG PO (01:23)
--- NOTE | 2018-10-12 02:06 | PC.NURSE ---
Patient has old blood in tegaderm. Flushes well, no problem. Patient did not want it changed at this time.
[2018-10-12] MEDS: OXYCODONE IR 5 MG TABLET PO ×4 (06:06→22:35)
[2018-10-12] MEDS: DOCUSATE 100 MG CAPSULE PO ×2 (08:36→20:40)
[2018-10-12] MEDS: AMLODIPINE 5 MG TABLET PO (08:37)
[2018-10-12] MEDS: SODIUM CHLORIDE 0.9% FLUSH 10 ML IV ×2 (08:38→20:42)
--- NOTE | 2018-10-12 09:37 | PC.NURSE ---
Addendum entered by Sridhar Alejandra R.N. 10/12/18 14:03: Discussed plan of care for rest of shift, spoke with Dr. Mckenzie. will continue with IS and Tylenol as requested by Dr. Mckenzie. Pt understands plan and is agreeable to do his best. PT in with Pt presently. Original Note: Addendum entered by Sridhar Alejandra R.N. 10/12/18 12:58: temp at 12:[address] Mckenzie called, awaiting call back. Pt up in chair having some lunch, encouraged to used IS and keep active. Tylenol and Percolone given per orders. Original Note: Pt alert and oriented, follows commands, asking appropriate questions, discussed plan of care for the day and encouraged Pt to be up and active, use IS and stay up on pain medicines. Mac d/c'd per orders. Pt concerned about having BM to that end he understands he needs to be up and moving. Will be working with PT this morning.
--- NOTE | 2018-10-12 10:17 | PM.PNPO.1 ---
Subjective Date Patient Seen: 10/12/18 Time Patient Seen: 10:17 Interval history: patient is postop day 2. status post hardware removal and L3-4, L4-5, and L5-S1 TLIF redo. Patient is doing reasonably well and although still having fairly significant back pain is improved significantly since yesterday. He states that his leg pain is about the same. He had a small bowel movement this morning. No other complaints. Exam Vital Signs (past 8 hours): - 10/12/18 05:05 10/12/18 07:40 Temperature 98.5 F 98.4 F Pulse Rate 99 H 93 H Respiratory Rate 13 20 Blood Pressure 141/77 H 139/90 Pulse Oximetry 96 96 Oxygen Delivery Method Room Air Oxygen Flow Rate 0 Narrative Exam Narrative: Patient is awake, alert, oriented and in no obvious distress lying in his hospital bed. Patient is afebrile and his vital signs are stable. Distal neurovascular examination is grossly intact and his dressing is dry and intact. Objective Labs Result Diagrams: 10/11/18 06:03 Assessment & Plan Post-op Postoperative Procedures Operation Date: 10/10/18 07:45 Actual Procedures Side Surgeon p L5-S1 Lumbar HWR,Explor fusion,Repeat Lami,Reinsertion HWR,L3-4,L4-5,L5-S1 TLIF Lm Rashid MD Postoperative status narrative: Patient continues to make good postoperative progress. We will continue to work on his postoperative bowel program and mobilization with physical therapy and anticipate probable discharge tomorrow. Quality VTE Deep Vein Thrombosis/Pulmonary Embolism Present on Admission: No
--- NOTE | 2018-10-12 10:20 | P.PN_ITS ---
Subjective Date Patient Seen: 10/12/18 Time Patient Seen: 10:17 Interval history: patient is postop day 2. status post hardware removal and L3- 4, L4-5, and L5-S1 TLIF redo. Patient is doing reasonably well and although still having fairly significant back pain is improved significantly since yesterday. He states that his leg pain is about the same. He had a small bowel movement this morning. No other complaints. Exam Vital Signs (past 8 hours): - 10/12/18 05:05 10/12/18 07:40 Temperature 98.5 F 98.4 F Pulse Rate 99 H 93 H Respiratory Rate 13 20 Blood Pressure 141/77 H 139/90 Pulse Oximetry 96 96 Oxygen Delivery Method Room Air Oxygen Flow Rate 0 Narrative Exam Narrative: Patient is awake, alert, oriented and in no obvious distress lying in his hospital bed. Patient is afebrile and his vital signs are stable. Distal neurovascular examination is grossly intact and his dressing is dry and intact. Objective Labs Result Diagrams: 10/11/18 06:03 Assessment & Plan Post-op Postoperative Procedures Operation Date: 10/10/18 07:45 Actual Procedures Side Surgeon p L5-S1 Lumbar HWR,Explor fusion,Repeat Lami,Reinsertion HWR,L3-4,L4-5,L5-S1 TLIF Lm Rashid MD Postoperative status narrative: Patient continues to make good postoperative progress. We will continue to work on his postoperative bowel program and m obilization with physical therapy and anticipate probable discharge tomorrow. Quality VTE Deep Vein Thrombosis/Pulmonary Embolism Present on Admission: No
--- NOTE | 2018-10-12 11:30 | PT.IPTN ---
Current Diagnoses Other secondary scoliosis, lumbar region (10/10/18) Spinal stenosis, lumbar region without neurogenic claudication (10/10/18) Unspecified fracture of unspecified lumbar vertebra, initial encounter for closed fracture (10/10/18) Other mechanical complication of other internal orthopedic devices, implants and grafts, initial encounter (10/10/18) Surgery Performed Operation Date: 10/10/18 07:45 Actual Procedures p L5-S1 Lumbar HWR,Explor fusion,Repeat Lami,Reinsertion HWR,L3-4,L4-5,L5-S1 TLIF - Lm Rashid MD Physical Therapy Treatment Note M2 PT-IP Current Condition Start: 10/11/18 10:27 Freq: NEEDED Status: Active Protocol: Document 10/11/18 10:24 [facility] (Rec: 10/11/18 10:40 [facility] [id number]) Physical Therapy Current Condition Current Condition Evaluation Date 10/11/18 Treatment Diagnosis L5-S1 HWR, L3-S1 TLIF 10/10/18, impaired mobility and activity tolerance Onset Date 10/10/18 Precautions Lumbar Precautions Log Roll No Twisting Limit Bending Lifting Restriction of 10 lbs Gait Belt above Incisional Area Weight Bearing Status Weight Bearing Status Weight Bear as Tolerated M3 PT-IP Subjective Start: 10/11/18 10:27 Freq: NEEDED Status: Active Protocol: Document 10/12/18 11:30 [facility] (Rec: 10/12/18 14:19 [facility] [id number]) Subjective Physical Therapy Visit Type Type Patient Unavailable Notes pt with temperature, just back to bed to sleep. Recommend checking back with pt this p.m . He has been up multiple times to chair per pt and nursing. M4 PT-IP Mobility and Gait Start: 10/11/18 10:27 Freq: NEEDED Status: Active Protocol: Document 10/11/18 14:56 [facility] (Rec: 10/11/18 16:29 [facility] [id number]) PT-Bed Mobility Assessment Rolling Type of Rolling Log Rolling Level of Assist Independent Supine to Sit Supine to Sit Independent Sit to Supine Sit to Supine Independent Scooting Scooting to Edge of Bed Independent PT-Transfer Assessment Sit to and From Stand Sit to and from Stand Standby Assistance Use of Upper Extremities Equipment Transfer Assistive Device Gait Belt Front Wheeled Walker Transfers Transfer Destination Bed Transfer Technique Stand Step Pivot Transfer Ability Level of Assist Standby Assistance Gait Assessment Gait Gait Assistance Required: Standby Assistance Distance (Feet) 160 Assistive Devices Assistive Device Gait Belt Front Wheeled Walker Gait Deviations General Gait Pattern Antalgic Decreased Stride Length Decreased Feet Clearance Wide Based Gait Factors Limiting Gait Function Factors Limiting Gait Function Decreased Activity Tolerance Limited Range of Motion Pain M5 PT-IP Objective Assessments Start: 10/11/18 10:27 Freq: NEEDED Status: Active Protocol: Document 10/11/18 10:24 [facility] (Rec: 10/11/18 10:40 [facility] [id number]) Orientation Orientation/Cognition Level of Alertness Alert Strength Comments Strength Comments no MMT tested due to recent surgery Sensation Assessment Comments Sensation Comments impaired but present sensation to light touch B feet and calves; pt admits to L hand tingling M6 PT-IP Treatment Start: 10/11/18 10:27 Freq: NEEDED Status: Active Protocol: Document 10/11/18 14:56 [facility] (Rec: 10/11/18 16:29 [facility] [id number]) Physical Therapy Treatment Education Education Provided Precautions Safety M7 PT-IP Assessment and Plan Start: 10/11/18 10:27 Freq: NEEDED Status: Active Protocol: Document 10/11/18 14:56 [facility] (Rec: 10/11/18 16:29 [facility] [id number]) PT Summary Assessment and Plan Summary Assessment Summary POD #1. Pt able to tolerate increased gait without increased pain, although he did have pain rated 4/10 throughout. Pt is indep. with bed mobility at this time and is safe with bed mobility. Pt will need to be able to tolerate stairs prior to d/c, but is improving and likely be able to manage safely at home when medically stable. Goals Bed Mobility Goal Independent Transfer Goal Independent Gait Goal Standby Assistance Front Wheel Walker Gait Distance 150 Other Goals up/down 5 steps with L ascending rail and SBA Days to Meet Goals 3 Frequency of Treatment Frequency Of Treatment Twice a Day Treatment Plan Other Recommendations and Next Treatment stairs, progress gait as Focus tolerated. Recommendations To Nursing Amount of Assist Needed 1 Person Assist Discharge Recommendations PT Discharge Recommendations Home with Assistance Equipment Needed for Home Before FWW Discharge
[2018-10-12] MEDS: ACETAMINOPHEN 325 MG TABLET 650 MG PO ×2 (12:45→20:41)
--- NOTE | 2018-10-12 14:08 | PT.IPTN ---
Current Diagnoses Other secondary scoliosis, lumbar region (10/10/18) Spinal stenosis, lumbar region without neurogenic claudication (10/10/18) Unspecified fracture of unspecified lumbar vertebra, initial encounter for closed fracture (10/10/18) Other mechanical complication of other internal orthopedic devices, implants and grafts, initial encounter (10/10/18) Surgery Performed Operation Date: 10/10/18 07:45 Actual Procedures p L5-S1 Lumbar HWR,Explor fusion,Repeat Lami,Reinsertion HWR,L3-4,L4-5,L5-S1 TLIF - Lm Rashid MD Physical Therapy Treatment Note M2 PT-IP Current Condition Start: 10/11/18 10:27 Freq: NEEDED Status: Active Protocol: Document 10/11/18 10:24 [facility] (Rec: 10/11/18 10:40 [facility] [id number]) Physical Therapy Current Condition Current Condition Evaluation Date 10/11/18 Treatment Diagnosis L5-S1 HWR, L3-S1 TLIF 10/10/18, impaired mobility and activity tolerance Onset Date 10/10/18 Precautions Lumbar Precautions Log Roll No Twisting Limit Bending Lifting Restriction of 10 lbs Gait Belt above Incisional Area Weight Bearing Status Weight Bearing Status Weight Bear as Tolerated M3 PT-IP Subjective Start: 10/11/18 10:27 Freq: NEEDED Status: Active Protocol: Document 10/12/18 14:08 [facility] (Rec: 10/12/18 14:24 [facility] [id number]) Subjective Physical Therapy Visit Type Type Treatment Note Visit Start Time 14:08 Visit Stop Time 14:19 Total Visit Minutes 11 Number of INSTITUTIONAL COMMODITY ANALYST Visits 0 Physical Therapy Visit Comments Patient Comments pt agreeable to ambulate. M4 PT-IP Mobility and Gait Start: 10/11/18 10:27 Freq: NEEDED Status: Active Protocol: Document 10/12/18 14:08 [facility] (Rec: 10/12/18 14:24 [facility] [id number]) PT-Bed Mobility Assessment Rolling Type of Rolling Log Rolling Level of Assist Independent Supine to Sit Supine to Sit Independent Sit to Supine Sit to Supine Independent Scooting Scooting to Edge of Bed Independent PT-Transfer Assessment Sit to and From Stand Sit to and from Stand Standby Assistance Use of Upper Extremities Equipment Transfer Assistive Device Gait Belt Front Wheeled Walker Transfers Transfer Destination Bed Transfer Technique Stand Step Pivot Transfer Ability Level of Assist Standby Assistance Gait Assessment Gait Gait Assistance Required: Standby Assistance Distance (Feet) 250 Assistive Devices Assistive Device Gait Belt Front Wheeled Walker Gait Deviations General Gait Pattern Decreased Stride Length Decreased Feet Clearance Factors Limiting Gait Function Factors Limiting Gait Function Decreased Activity Tolerance Decreased Strength Pain M5 PT-IP Objective Assessments Start: 10/11/18 10:27 Freq: NEEDED Status: Active Protocol: Document 10/11/18 10:24 [facility] (Rec: 10/11/18 10:40 [facility] [id number]) Orientation Orientation/Cognition Level of Alertness Alert Strength Comments Strength Comments no MMT tested due to recent surgery Sensation Assessment Comments Sensation Comments impaired but present sensation to light touch B feet and calves; pt admits to L hand tingling M6 PT-IP Treatment Start: 10/11/18 10:27 Freq: NEEDED Status: Active Protocol: Document 10/12/18 14:08 [facility] (Rec: 10/12/18 14:24 [facility] [id number]) Physical Therapy Treatment Education Education Provided Precautions Safety M7 PT-IP Assessment and Plan Start: 10/11/18 10:27 Freq: NEEDED Status: Active Protocol: Document 10/12/18 14:08 [facility] (Rec: 10/12/18 14:24 [facility] [id number]) PT Summary Assessment and Plan Summary Assessment Summary POD #2. Pt able to get in/out of bed without assistance, and ambulated with a FWW 250 ft. Pt will need stair training prior to d/c. Goals Bed Mobility Goal Independent Transfer Goal Independent Gait Goal Standby Assistance Front Wheel Walker Gait Distance 150 Other Goals up/down 5 steps with L ascending rail and SBA Days to Meet Goals 3 Frequency of Treatment Frequency Of Treatment Twice a Day Treatment Plan Other Recommendations and Next Treatment stair training (5 SE L Focus ascending rail), review precautions Recommendations To Nursing Amount of Assist Needed 1 Person Assist Discharge Recommendations PT Discharge Recommendations Home with Assistance Equipment Needed for Home Before FWW Discharge
--- NOTE | 2018-10-12 17:03 | PC.NURSE ---
Addendum entered and electronically signed by Gilma Contreras R.N. 10/12/18 21:21: Pt was educated and given opportunities for suppository and enema. Pt refused both on multiple attempts. Original Note: Pt educated about pain, and medication needs. Denied any pain medications at this time. States maybe for bed tonight.
[2018-10-12] MEDS: MAGNESIUM HYDROXIDE 30 ML UDC PO (17:38)
[2018-10-12] MEDS: SENNOSIDES 8.6 MG TABLET 17.2 MG PO (20:40)
--- NOTE | 2018-10-12 20:46 | PC.NURSE ---
Pt on right side in bed resting quietly. Temp 100.0 and pt was given tylenol to treat. Old blood noted under tegaderm to iv site left forearm. Site flushes easily without discomfort. Pt declines offer for dressing change. Refuses foot pumps as states getting up to toilet. Reinforced to pt call for assistance when needing/desiring out of bed. Pt has been compliant. Refused offer to assist with ambulation in hallway this evening shift. Bulky dressing to back with shadowy drainage outlined and not exceeding outline.
[2018-10-13] VITALS (10 sets, daily range): BP systolic 139–173; BP diastolic 69–89; PULSE 68–96; RESP 16–18; TEMP 36.3–37.8; O2SAT 94–98
[2018-10-13] MEDS: BISACODYL 10 MG SUPP PR (03:26)
--- NOTE | 2018-10-13 07:19 | PM.PNPO.1 ---
Subjective Date Patient Seen: 10/13/18 Time Patient Seen: 07:19 Interval history: Patient's pain is moderate to severe. Denies fever chills. No nausea vomiting. He did have a bowel movement this morning. He lives alone on [address]. He would like to go home instead of residential facility. He can have friends pick him up tomorrow. Exam Vital Signs (past 8 hours): - 10/13/18 00:10 10/13/18 04:00 10/13/18 06:00 Temperature 97.8 F 97.8 F Pulse Rate 81 71 96 H Respiratory Rate 18 18 18 Blood Pressure 149/74 H 173/69 H 141/74 H Pulse Oximetry 98 97 98 Oxygen Delivery Method Room Air Oxygen Flow Rate 0 Narrative Exam Narrative: 78-year-old male resting comfortably in bed in no apparent distress. Dressing is clean, dry and intact. Neurovascular status is intact to the bilateral lower extremities. Objective Labs Result Diagrams: 10/11/18 06:03 Assessment & Plan Post-op Postoperative Procedures Operation Date: 10/10/18 07:45 Actual Procedures Side Surgeon p L5-S1 Lumbar HWR,Explor fusion,Repeat Lami,Reinsertion HWR,L3-4,L4-5,L5-S1 TLIF Lm Rashid MD Postop day 3. Patient progressing as expected. Continue to work on pain control today. Mobilize with physical therapy. Discharge home tomorrow. Quality VTE Deep Vein Thrombosis/Pulmonary Embolism Present on Admission: No
--- NOTE | 2018-10-13 07:25 | P.PN_ITS ---
Subjective Date Patient Seen: 10/13/18 Time Patient Seen: 07:19 Interval history: Patient's pain is moderate to severe. Denies fever chills. No nausea vomiting. He did have a bowel movement this morning. He lives alone on [address]. He would like to go home instead of detention facility. He can have friends pick him up tomorrow. Exam Vital Signs (past 8 hours): - 10/13/18 00:10 10/13/18 04:00 10/13/18 06:00 Temperature 97.8 F 97.8 F Pulse Rate 81 71 96 H Respiratory Rate 18 18 18 Blood Pressure 149/74 H 173/69 H 141/74 H Pulse Oximetry 98 97 98 Oxygen Delivery Method Room Air Oxygen Flow Rate 0 Narrative Exam Narrative: 78-year-old male resting comfortably in bed in no apparent distress. Dressing is clean, dry and intact. Neurovascular status is intact to the bilateral lower extremities. Objective Labs Result Diagrams: 10/11/18 06:03 Assessment & Plan Post-op Postoperative Procedures Operation Date: 10/10/18 07:45 Actual Procedures Side Surgeon p L5-S1 Lumbar HWR,Explor fusion,Repeat Lami,Reinsertion HWR,L3-4,L4-5,L5-S1 TLIF Lm Rashid MD Postop day 3. Patient progressing as expected. Continue to work on pain control today. Mobilize with physical therapy. Discharge home tomorrow. Quality VTE Deep Vein Thrombosis/Pulmonary Embolism Present on Admission: No
[2018-10-13] MEDS: AMLODIPINE 5 MG TABLET PO (08:47)
[2018-10-13] MEDS: ACETAMINOPHEN 325 MG TABLET 650 MG PO ×2 (08:47→17:49)
[2018-10-13] MEDS: DOCUSATE 100 MG CAPSULE PO ×2 (08:47→20:22)
[2018-10-13] MEDS: OXYCODONE IR 5 MG TABLET PO ×2 (08:51→17:49)
[2018-10-13] MEDS: SODIUM CHLORIDE 0.9% FLUSH 10 ML IV ×2 (09:53→20:22)
--- NOTE | 2018-10-13 11:25 | PT.IPTN ---
Current Diagnoses Other secondary scoliosis, lumbar region (10/10/18) Spinal stenosis, lumbar region without neurogenic claudication (10/10/18) Unspecified fracture of unspecified lumbar vertebra, initial encounter for closed fracture (10/10/18) Other mechanical complication of other internal orthopedic devices, implants and grafts, initial encounter (10/10/18) Surgery Performed Operation Date: 10/10/18 07:45 Actual Procedures p L5-S1 Lumbar HWR,Explor fusion,Repeat Lami,Reinsertion HWR,L3-4,L4-5,L5-S1 TLIF - Lm Rashid MD Physical Therapy Treatment Note M2 PT-IP Current Condition Start: 10/11/18 10:27 Freq: NEEDED Status: Active Protocol: Document 10/11/18 10:24 [facility] (Rec: 10/11/18 10:40 [facility] [id number]) Physical Therapy Current Condition Current Condition Evaluation Date 10/11/18 Treatment Diagnosis L5-S1 HWR, L3-S1 TLIF 10/10/18, impaired mobility and activity tolerance Onset Date 10/10/18 Precautions Lumbar Precautions Log Roll No Twisting Limit Bending Lifting Restriction of 10 lbs Gait Belt above Incisional Area Weight Bearing Status Weight Bearing Status Weight Bear as Tolerated M3 PT-IP Subjective Start: 10/11/18 10:27 Freq: NEEDED Status: Active Protocol: Document 10/13/18 10:25 [facility] (Rec: 10/13/18 11:25 [id number]) Subjective Physical Therapy Visit Type Type Treatment Note Visit Start Time 10:25 Visit Stop Time 10:45 Total Visit Minutes 20 Number of TACK COVERER Visits 0 Physical Therapy Visit Comments Patient Comments pt agreeable to mobilize with PT Therapy Pain Assessment Pain When Pain Assessed During Mobility Pain Present Pain Present Pain Reported Location Posterior Neck Intensity 2 Scale Used Numeric (1 - 10) M4 PT-IP Mobility and Gait Start: 10/11/18 10:27 Freq: NEEDED Status: Active Protocol: Document 10/13/18 10:25 [facility] (Rec: 10/13/18 11:25 [id number]) PT-Transfer Assessment Sit to and From Stand Sit to and from Stand Standby Assistance Use of Upper Extremities Equipment Transfer Assistive Device Gait Belt Front Wheeled Walker Transfers Transfer Destination Chair Transfer Technique Stand Step Pivot Transfer Ability Level of Assist Standby Assistance Gait Assessment Gait Gait Assistance Required: Standby Assistance Distance (Feet) 350 Assistive Devices Assistive Device Gait Belt Front Wheeled Walker Gait Deviations General Gait Pattern Decreased Stride Length Decreased Feet Clearance Flexed Trunk Factors Limiting Gait Function Factors Limiting Gait Function Decreased Activity Tolerance Decreased Strength Pain Stair Climbing Assessment Evaluation Level of Assist On Stairs Standby Assistance Devices Stair Climbing Assistive Devices Left Railing Technique/Endurance Stair Climbing Direction Ascend and Descend Stair Climbing Technique Step Over Step Number of Steps Climbed 3 Query Text: Stair Climbing Set # Repetitions (reps) 4 Comments Stair Climbing Comments SBA, no LOB. Pt reports slight pain during descending M5 PT-IP Objective Assessments Start: 10/11/18 10:27 Freq: NEEDED Status: Active Protocol: Document 10/11/18 10:24 [facility] (Rec: 10/11/18 10:40 [facility] [id number]) Orientation Orientation/Cognition Level of Alertness Alert Strength Comments Strength Comments no MMT tested due to recent surgery Sensation Assessment Comments Sensation Comments impaired but present sensation to light touch B feet and calves; pt admits to L hand tingling M6 PT-IP Treatment Start: 10/11/18 10:27 Freq: NEEDED Status: Active Protocol: Document 10/12/18 14:08 [facility] (Rec: 10/12/18 14:24 [facility] [id number]) Physical Therapy Treatment Education Education Provided Precautions Safety M7 PT-IP Assessment and Plan Start: 10/11/18 10:27 Freq: NEEDED Status: Active Protocol: Document 10/13/18 10:25 (Rec: 10/13/18 11:25 [id number]) PT Summary Assessment and Plan Potential Rehabilitation Potential Good Status of Condition at Evaluation Stable Summary Impairments Pain ROM Transfers Gait Activity Tolerance Assessment Summary POD #3. Pt showed improved amb distance and activity tolerance. He also climbed 16 steps in total with step over and L rail. No LOB/ fatigue noted. Pt states he does not feel safe not to use 4WW/ without AD at this point. Recommended pt to use hiking sticks for amb in the future to facilitate upright trunk position. He also thinks he might need help from a CG for gemologist once or twice a week due to his difficulty with trunk movements. Communicated with LALO Gunter regarding this request. LALO will look into his insurance coverage. Goals Bed Mobility Goal Independent Transfer Goal Independent Gait Goal Independent Front Wheel Walker Gait Distance 200 Other Goals amb as tolerated with least restrictive AD. Days to Meet Goals 3 Frequency of Treatment Frequency Of Treatment Twice a Day Treatment Plan Other Recommendations and Next Treatment Review precautions. cont gait Focus ,transfer, stair training as jeanette attempt 4ww/ hiking sticks as jeanette Recommendations To Nursing Amount of Assist Needed 1 Person Assist Discharge Recommendations PT Discharge Recommendations Home with Assistance Other Discharge Recommendations CG 2-3 times /week for gemologist. Equipment Needed for Home Before FWW Discharge
[2018-10-13] MEDS: MAGNESIUM HYDROXIDE 30 ML UDC PO (11:28)
--- NOTE | 2018-10-13 15:23 | PT.IPTN ---
Current Diagnoses Other secondary scoliosis, lumbar region (10/10/18) Spinal stenosis, lumbar region without neurogenic claudication (10/10/18) Unspecified fracture of unspecified lumbar vertebra, initial encounter for closed fracture (10/10/18) Other mechanical complication of other internal orthopedic devices, implants and grafts, initial encounter (10/10/18) Surgery Performed Operation Date: 10/10/18 07:45 Actual Procedures p L5-S1 Lumbar HWR,Explor fusion,Repeat Lami,Reinsertion HWR,L3-4,L4-5,L5-S1 TLIF - Lm Rashid MD Physical Therapy Treatment Note M2 PT-IP Current Condition Start: 10/11/18 10:27 Freq: NEEDED Status: Active Protocol: Document 10/11/18 10:24 RCC (Rec: 10/11/18 10:40 RCC [id number]) Physical Therapy Current Condition Current Condition Evaluation Date 10/11/18 Treatment Diagnosis L5-S1 HWR, L3-S1 TLIF 10/10/18, impaired mobility and activity tolerance Onset Date 10/10/18 Precautions Lumbar Precautions Log Roll No Twisting Limit Bending Lifting Restriction of 10 lbs Gait Belt above Incisional Area Weight Bearing Status Weight Bearing Status Weight Bear as Tolerated M3 PT-IP Subjective Start: 10/11/18 10:27 Freq: NEEDED Status: Active Protocol: Document 10/13/18 14:50 CLB (Rec: 10/13/18 15:22 CLB [email or web address]) Subjective Physical Therapy Visit Type Type Treatment Note Visit Start Time 14:50 Visit Stop Time 15:05 Total Visit Minutes 15 Number of FINISHING MACHINE OPERATOR AUTOMATIC Visits 1 Physical Therapy Visit Comments Patient Comments pt agreeable to mobilize with PT Therapy Pain Assessment Pain When Pain Assessed During Mobility Pain Present Pain Present Pain Reported Location Lower Back Intensity 4 Scale Used Numeric (1 - 10) M4 PT-IP Mobility and Gait Start: 10/11/18 10:27 Freq: NEEDED Status: Active Protocol: Document 10/13/18 14:50 CLB (Rec: 10/13/18 15:22 CLB [email or web address]) PT-Bed Mobility Assessment Rolling Type of Rolling Log Rolling Level of Assist Independent Supine to Sit Supine to Sit Independent Sit to Supine Sit to Supine Independent Scooting Scooting to Edge of Bed Independent PT-Transfer Assessment Sit to and From Stand Sit to and from Stand Standby Assistance Use of Upper Extremities Equipment Transfer Assistive Device Gait Belt Front Wheeled Walker Transfers Transfer Destination Bed Transfer Technique Stand Step Pivot Transfer Ability Level of Assist Standby Assistance Gait Assessment Gait Gait Assistance Required: Standby Assistance Distance (Feet) 250 Assistive Devices Assistive Device Gait Belt Front Wheeled Walker Gait Deviations General Gait Pattern Decreased Stride Length Decreased Feet Clearance Flexed Trunk Factors Limiting Gait Function Factors Limiting Gait Function Decreased Activity Tolerance Decreased Strength Pain M5 PT-IP Objective Assessments Start: 10/11/18 10:27 Freq: NEEDED Status: Active Protocol: Document 10/11/18 10:24 RCC (Rec: 10/11/18 10:40 RCC [id number]) Orientation Orientation/Cognition Level of Alertness Alert Strength Comments Strength Comments no MMT tested due to recent surgery Sensation Assessment Comments Sensation Comments impaired but present sensation to light touch B feet and calves; pt admits to L hand tingling M6 PT-IP Treatment Start: 10/11/18 10:27 Freq: NEEDED Status: Active Protocol: Document 10/12/18 14:08 RCC (Rec: 10/12/18 14:24 RCC [id number]) Physical Therapy Treatment Education Education Provided Precautions Safety M7 PT-IP Assessment and Plan Start: 10/11/18 10:27 Freq: NEEDED Status: Active Protocol: Document 10/13/18 14:50 CLB (Rec: 10/13/18 15:22 CLB [email or web address]) PT Summary Assessment and Plan Summary Impairments Pain ROM Transfers Gait Activity Tolerance Assessment Summary Pt is IND for all bed mobility , SBA for transfers and gait w /FWW. Pt refused gait training with 4WW and stated he did not want a FWW issued to him because he won't use it. Pt stated he would use a walking stick if he thought he needed it once he got home. Goals Bed Mobility Goal Independent Transfer Goal Independent Gait Goal Independent Front Wheel Walker Gait Distance 200 Other Goals amb as tolerated with least restrictive AD. Days to Meet Goals 3 Frequency of Treatment Frequency Of Treatment Twice a Day Treatment Plan Other Recommendations and Next Treatment gait, pt may be open to trial Focus cane Recommendations To Nursing Amount of Assist Needed 1 Person Assist Discharge Recommendations PT Discharge Recommendations Home with Assistance
--- NOTE | 2018-10-13 15:54 | OT.IP.TRT ---
Current Diagnoses Other secondary scoliosis, lumbar region (10/10/18) Spinal stenosis, lumbar region without neurogenic claudication (10/10/18) Unspecified fracture of unspecified lumbar vertebra, initial encounter for closed fracture (10/10/18) Other mechanical complication of other internal orthopedic devices, implants and grafts, initial encounter (10/10/18) Surgery Performed Operation Date: 10/10/18 07:45 Actual Procedures p L5-S1 Lumbar HWR,Explor fusion,Repeat Lami,Reinsertion HWR,L3-4,L4-5,L5-S1 TLIF - Lm Rashid MD Occupational Therapy Treatment Note M2 OT-IP Current Condition Start: 10/11/18 18:06 Freq: Status: Active Protocol: Document 10/11/18 14:20 PJM (Rec: 10/11/18 18:18 PJM [email or web address]) Occupational Therapy Current Condition Current Condition Evaluation Date 10/11/18 Treatment Diagnosis decreased self care/mobility s /p L5-S1 hardware removal,L3- S1 TLIF Diagnosis Onset Date 10/10/18 Post Operative Precautions Lumbar Precautions Log Roll No Twisting Limit Bending Lifting Restriction of 10 lbs Gait Belt above Incisional Area M3 OT- IP Subjective and Pain Start: 10/11/18 18:06 Freq: Status: Active Protocol: Document 10/11/18 14:20 PJM (Rec: 10/11/18 18:18 PJM [id number]) OT- Subjective Occupational Therapy Visit Type Type Initial Evaluation Visit Start Time 13:47 Visit Stop Time 14:20 Total Visit Minutes 33 Notes Pt is familair with lumbar spine precautions and adapted ADLS from previous surgery. Occupational Therapy Visit Comments Patient Comments I have been throogh this before and have some of that equipment. Patient/Caregiver Goals to go home and have less back pain during daily tasks OT Pain Assessment Pain When Pain Assessed After Treatment Pain Present Pain Present Pain Reported Location Posterior Neck Intensity 4 Scale Used Numeric (1 - 10) Description Aching Acute Pain Behaviors Guarding Management Techniques Distraction Timing of Activity with Medications M4 OT- IP ADL's Start: 10/11/18 18:06 Freq: Status: Active Protocol: Document 10/11/18 14:20 PJM (Rec: 10/11/18 18:18 PJM [id number]) OT [id number] General Evaluation Self-Feeding Ability Independent OT ADL-Grooming Comments OT Grooming Comments pt declines to get up to sink due to concnerns about pain level; provided education re: body mechanics OT ADL-Oral Care Comments Oral Care Comments provided education re: body mechanics OT ADL-Dressing Assistive Devices Dressing Assistive Devices Long Handled Shoe Horn Survey Interviewer Sock Aid Comments OT Dressing Comments Pt familiar with adpated lower body dressing techniques. 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 Provided education re: sock aid and provided one to pt at his request. He declines to practice any lower body dressing. OT ADL-Toileting Comments OT Toileting Comments pt still has merino in place. He plans to borrow RTS OT ADL-Bathing Bathing Type Bathing Type Shower Comments OT Bathing Comments provided education re: body mechanics, he plans to stand due to very small shower stall M5 OT- IP IADL's Start: 10/11/18 18:06 Freq: Status: Active Protocol: Document 10/11/18 14:20 PJM (Rec: 10/11/18 18:18 PJM [email or web address]) OT-Instrumental Activities of Daily Living Deficits IADL Deficits Identified Deficits Home Safety Awareness Awareness of Need for Assistance at Home Good Awareness Ability to Problem Solve Emergency Able to Problem Solve Situations Medication Management Medication Management No Deficits Identified Money Management Money Management No Deficits Identified Meal Preparation Meal Preparation No Deficits Identified Meal Preparation Comments Pt states he is stocked with food and neighbors will assist with some meals Recreation Therapist Recreation Therapist Caregiver Provides Assist Recreation Therapist Comments Pt states friends and neighbors can assist PRN with garage door installer Driving Driving Caregiver Provides Assist Driving Comments friends can assist until pt able M6 OT- IP Functional Cognition Start: 10/11/18 18:06 Freq: Status: Active Protocol: Document 10/11/18 14:20 PJM (Rec: 10/11/18 18:18 PJM [id number]) Cognitive Factors Limiting Selfcare Function Cognitive Ability Level of Alertness Alert Patient Orientation Name Age Birthday Month Date Year Day of Week Place Situation Attention Span Ability Capable of Focused Attention Capable of Sustained Attention Ability to Follow Commands Able to Follow One Step Commands Memory Description No Deficits Noted Safety Awareness No Deficits Noted Problem Solving Ability No deficits Noted Cognitive Comments Cognitive Assessment Comments Pt familiar with lumbar spine precautions from previous surgery. OT- Vision and Hearing OT- Hearing Assessment OT- Hearing Assessment WFL OT- Vision Assessment Visual Acuity WFL M7 OT- IP Mobility and Balance Start: 10/11/18 18:06 Freq: Status: Active Protocol: Document 10/11/18 14:20 PJM (Rec: 10/11/18 18:18 PJM [email or web address]) OT-Transfer Assessment Comments Mobility Comments Pt declined to mobilize out of bed this session due to pain level; eants to wait for P.T. OT- Gait Assessment Comments Gait Ability Comments see P.T. notes OT- Balance Assessment Comments Other Balance Tests/Deviations/Treatment See P.T. notes : M8 OT- IP Objective Assessments Start: 10/11/18 18:06 Freq: Status: Active Protocol: Document 10/11/18 14:20 PJM (Rec: 10/11/18 18:18 PJM [email or web address]) OT Gross Range of Motion Upper Extremity Range of Motion Assessment Within Functional Limits OT Strength Upper Extremity Strength Assessment Within Functional Limits OT- Coordination Assessment Comments Coordination Comments BUE WFL OT-Muscle Tone Assessment Muscle Tone WNL Yes OT Sensation Assessment Comments Summary Comments BUE WNL per pt Edema Edema Absent M9 OT- IP Assessment and Plan Start: 10/11/18 18:06 Freq: Status: Active Protocol: Document 10/11/18 14:20 PJM (Rec: 10/11/18 18:18 PJM [id number]) OT Summary Assessment and Plan Potential Rehabilitation Potential Good Analytic Complexity at Evaluation Low Summary OT Impairments Pain Progress Towards Goals Goals Met Assessment Summary Low complexity OT assessment and all education completed in one session re: lumbar spine precautions, posture, chair selection, adapted ADLS, bathroom safety equipment options, car transfers. Pt familiar with all information from previous back surgery and does not feel he needs any more OT services here. Pt will have assist from friends and neighbors after D/C. OT to sign off. Frequency of Treatment Frequency Of Treatment Discharge Discharge Recommendations OT Discharge Recommendations Home with Assistance Home Equipment Needs provided sock aid
[2018-10-13] MEDS: SENNOSIDES 8.6 MG TABLET 17.2 MG PO (20:22)
[2018-10-14 05:45] VITALS: BP 140/72; PULSE 81; RESP 16; TEMP 36.4
[2018-10-14 07:40] VITALS: BP 130/78; PULSE 85; RESP 17; TEMP 36.6; O2SAT 98
[2018-10-14] MEDS: ACETAMINOPHEN 325 MG TABLET 650 MG PO (07:47)
[2018-10-14] MEDS: DOCUSATE 100 MG CAPSULE PO (07:47)
[2018-10-14] MEDS: AMLODIPINE 5 MG TABLET PO (07:48)
--- NOTE | 2018-10-14 09:07 | P.DS_ITS ---
History of Present Illness Date Patient Seen: 10/14/18 Time Patient Seen: 09:01 Chief complaint: Lumbar Laminectomy Narrative: Hospital day 5, postop day 4 following L3-4, L4-5 TLIF, L5-S1 a 8 W are, exploration of fusion, left julee laminectomy and posterior fusion by Dr. Rashid. Patient has remained stable. Has progressed with physical therapy. Continues to have pain to back and legs. Taking oxycodone for pain. Patient is desiring to go home today. Discharge Providers Date of admission: 10/10/18 06:01 Discharge Date: 10/14/18 Primary care physician: Amrit Sethi MD Consults: 09/15/18 14:12 Consult to Jewelry Model Maker Routine Comment: 10/10/18 15:43 Consult to Occupational Therapy Evaluate & Treat Comment: Physician Instructions: Evaluate and treat Consult to Physical Therapy Evaluate & Treat Comment: Physician Instructions: Evaluate and Treat 10/13/18 10:50 Consult to Occupational Therapy Evaluate & Treat Comment: Physician Instructions: Evaluate and treat Discharge provider: Fletcher Simon PA-C Summary Discharge Diagnosis: Status post L3-4, L4-5 TLIF, L5-S1 H WA are, left hemilaminectomy, exploration of fusion, posterior fusion Hospital Course: Patient brought to hospital on 10/10/2018 for above-noted surgery. He remained stable postoperatively. Had pain control issues initially which gradually improved. I was able to gradually improve with physical therapy and ambulation. Ready for discharge home on postop day 4. Status at Discharge Cognitive/behavioral status at discharge: Alert, oriented no acute distress. Functional status at discharge: uses cane/walker Overall status at discharge: patient is progressing back to baseline Time Spent with Patient Less than 30 minutes Exam Vital Signs (past 8 hours): - 10/14/18 05:45 10/14/18 07:40 Temperature 97.5 F L 97.8 F Pulse Rate 81 85 Respiratory Rate 16 17 Blood Pressure 140/72 130/78 Pulse Oximetry 98 Oxygen Delivery Method Room Air Oxygen Flow Rate 0 Narrative Exam Narrative: Back. Dressing to lumbar incision area is dry without drainage or inflammation. Legs. No calf pain or swelling. Pulses symmetrical. Good sensation to touch the lower legs symmetrical. Good strength on ankle dorsiflexion plantar flexion bilateral. Patient able do leg raise bilateral. Objective Labs Result Diagrams: 10/11/18 06:03 Discharge Plan Discharge Plan Patient Disposition: Home Discharge comment: Discharge to home today after cleared by PT. Apply CovRsite dressing to lumbar incision. Patient needs prior to boarding pass for [facility] Discharge Med Rec/Prescriptions Prescriptions: New acetaminophen 325 mg Tablet 650 mg PO Q6HR PRN (Reason: Pain, Mild (1-3)) Qty: 0 RF: 0 docusate sodium 100 mg Capsule 100 mg PO BID Qty: 0 RF: 0 oxycodone 5 mg Tablet 5 mg PO Q4-6H PRN (Reason: pain) Qty: 40 RF: 0 hydroxyzine HCl 25 mg tablet 25 mg PO QID PRN (Reason: muscle spasm) Qty: 60 RF: 0 Continued amlodipine [Norvasc] 5 MG tablet 5 mg PO QDAY Qty: 30 RF: 3 Discontinued aspirin 81 mg Tablet,Delayed Release (Dr/Ec) 81 mg PO DAILY RF: 0 Follow up/Referrals: Lm Rashid MD [Physician] - (Follow up at previously scheduled post-op appointment in 10-14 days.) Provider Discharge Instructions Diet: Diet as Tolerated Activity: Weightbearing as tolerated, no bending, lifting greater than 5 lbs, or twisting. Cold/Heat Therapy: Apply ice to affected area for 20 minutes at a time at least hourly while awake. Skin/Wound/Dressing Care Report to your healthcare provider any signs of infection, such as:: chills, fever, night sweats, increased pain, unusual drainage and unusual redness Dressing: Keep dressing clean, dry, and intact. May shower with it in place but no soaking. Visit Report/Discharge Packet Instructions: DI for Transforaminal Lumbar Interbody Fusion Stand Alone Forms: Surgery Discharge Discharge Data Primary Care Provider: Amrit Sethi Attending Provider: Lm Rashid Admit Date/Time: 10/10/18 06:01 Quality VTE Deep Vein Thrombosis/Pulmonary Embolism Present on Admission: No
--- NOTE | 2018-10-14 10:45 | PC.NURSE ---
Day shift: Dressing changed to 2 each Coversite. Surgical sites well approximated. No drainage and no s/s of infection. Tolerated removal of original dressing well.
--- NOTE | 2018-10-14 10:51 | CM.DPC ---
DCP: continued: d/c to home order is noted. PT and OT report safe for same in Team Rounds. Met now with pt, introduced self and role. Pt confirms his friends will be here to take him home on the [address] to [place]. Priority Board pass is all set up per KALIN Mccartney. Pt will be going home where he lives alone but he does have friends that will check in prn and plans to have someone come in to help prn with chores etc. PT confirms he feels comfortable with the dc home today. AB#2 presented and re-signed by pt.
[2018-10-14] MEDS: OXYCODONE IR 5 MG TABLET 10 MG PO (13:18)
--- NOTE | 2018-10-14 14:26 | PC.NURSE ---
Day shift: Pt left unit at approx 1415. Taken to private car in by this underwriter solicitation director. Has MD scrips and priority boarding. Paperwork signed and all questions answered. Pt has all personal belongings.
== END 2018-10-14 14:15 | disposition home or self-care (01) | DRG 454 ==
PROVIDERS: Admitting Provider Orthopaedic Surgery Orthopaedic Surgery of the Spine; PCP Family Medicine; Visit Provider Orthopaedic Surgery Orthopaedic Surgery of the Spine
PROC: 0SG10AJ Fusion of 2 or more Lumbar Vertebral Joints with Interbody Fusion Device, Posterior Approach, Anterior Column, Open Approach (ICD-10-PCS; principal; 2018-10-10 07:45)
DX: M48.061 Spinal stenosis, lumbar region without neurogenic claudication (principal); T84.038A Mechanical loosening of other internal prosthetic joint, initial encounter; M96.0 Pseudarthrosis after fusion or arthrodesis; M41.56 Other secondary scoliosis, lumbar region; I10 Essential (primary) hypertension
CPT/HCPCS: 36415; 72100; 76000; 85014; 85018; 97116; 97161; 97165; 97530; 97535; C1776; C9290; J0330; J0690; J1100; J1170; J2060; J2405; J2704; J3010; J3410

== ENCOUNTER 2018-10-19 14:08 | Emergency (ER) | payer MEDICARE, OTHER, SELFPAY ==
[2018-10-10 16:38] VITALS: BMI 25.7
[2018-10-19 14:10] VITALS: BP 134/60; PULSE 63; RESP 15; TEMP 36.6; O2SAT 99; BMI 26.7
[2018-10-19 14:24] VITALS: BP 153/64; PULSE 63; RESP 15; TEMP 36.6; O2SAT 99
[2018-10-19 15:00] VITALS: BP 133/57; PULSE 70; RESP 18; O2SAT 98
--- NOTE | 2018-10-19 15:02 | DI.CT.S_ITS ---
PROCEDURE: CT KIDNEY URETER BLADDER (KUB) INDICATIONS: back pain, post-op injury TECHNIQUE: Noncontrast 5 mm thick sections acquired from the diaphragms to the symphysis. 5 mm thick coronal and sagittal reformats were then performed. For radiation dose reduction, the following was used: automated exposure control, adjustment of mA and/or kV according to patient size. COMPARISON: None. FINDINGS: Image quality: Excellent. Lung bases: Lung bases are clear. Heart size is normal. Urinary system: Both kidneys are normal in size. No kidney stones. No hydronephrosis or perinephric fat stranding. Both ureters appear non-dilated throughout their expected courses. Bladder wall thickness is mildly increased; no calcified bladder stones. Other solid organs: Liver is normal in size. Gallbladder is unremarkable. Pancreas is normal in contours. Spleen is normal in size. Multiple splenic calcifications are consistent with chronic granulomatous disease. No adrenal nodules. Peritoneum and bowel: Unenhanced bowel loops demonstrate normal wall thickness and caliber. No free fluid or air. There is extensive sigmoid diverticulosis without evidence of diverticulitis. Nodes and vessels: No retroperitoneal or mesenteric adenopathy by size criteria. Aorta and inferior vena cava are normal in caliber. Abdominal wall: No ventral hernias. Pelvis: No free pelvic fluid. No inguinal hernias or adenopathy. Enlarged prostate. Bones: No suspicious bony lesions. No vertebral body compression fractures. Remote L3-S1 posterior lateral fusion and interbody fusion and laminectomy. IMPRESSION: 1. No evidence renal stone or ureteral stone. 2. Mild bladder wall thickening. 3. Enlarged prostate. 4. Extensive sigmoid diverticulosis without evidence of diverticulitis. 5. Multilevel lumbosacral fusion. Dictated by: Tushar Raymond M.D. on 10/19/2018 at 15:53 Approved by: Tushar Raymond M.D. on 10/19/2018 at 15:57
[2018-10-19 16:01] VITALS: BP 144/82; PULSE 71; RESP 18; O2SAT 98
[2018-10-19 16:47] VITALS: BP 143/87; PULSE 70; RESP 16; O2SAT 98
--- NOTE | 2018-10-24 04:53 | ED.BACK ---
HPI - Back Pain/Injury General Chief Complaint: Back Pain/Injury Stated Complaint: Back pain S/P surgery Time Seen by Provider: 10/19/18 14:27 Source: patient Mode of arrival: ambulatory Limitations: no limitations History of Present Illness HPI Narrative: [facility] after turning over in bed last night and feeling a pop in his low back. Patient states he had a shooting pain went down his right leg when this happened. Patient states that now he is feeling quite a bit better, but he wanted to make sure that everything was okay and his low back, as he just had surgery recently. Patient states he stayed in bed for the rest of the night and then went to the clinic in the morning, where an airlift was arranged. Patient states he has been able to walk around without difficulty. He denies any numbness or tingling in his lower extremities. He reports minimal pain in his back when he moves around. He states he had some hardware placed, and he is concerned as to whether this is still in the right place or not. No other complaints at this time. No fevers. No bowel or bladder incontinence. No abdominal pain. Related Data Previous Rx's Medication Instructions Recorded amlodipine [Norvasc] 5 mg PO QDAY #30 tab 01/09/17 acetaminophen 650 mg PO Q6HR PRN #0 tab 10/11/18 docusate sodium 100 mg PO BID #0 cap 10/11/18 hydroxyzine HCl 25 mg PO QID PRN #60 tab 10/11/18 oxycodone 5 mg PO Q4-6H PRN #40 tab 10/11/18 Allergies Allergy/AdvReac Type Severity Reaction Status Date / Time No Known Drug Allergies Allergy Verified 09/15/18 13:08 Review of Systems Constitutional Denies chills, Denies fever(s), Denies lethargy and Denies weakness Eyes Denies change in vision, Denies eye discharge, Denies irritation and Denies loss of vision ENT Ears, Nose, Mouth, and Throat: Denies change in voice, Denies neck pain and Denies sore throat Cardiovascular Denies chest pain, Denies irregular heart rhythm, Denies lightheadedness, Denies palpitations, Denies dyspnea, Denies dyspnea on exertion and Denies orthopnea Respiratory Denies cough, Denies dyspnea, Denies dyspnea on exertion and Denies wheezing Gastrointestinal Gastrointestinal: Denies abdominal pain, Denies change in bowel habits, Denies diarrhea, Denies nausea and Denies vomiting Genitourinary Denies hematuria, Denies flank pain, Denies urinary incontinence and Denies urinary urgency Musculoskeletal Reports back pain and Denies neck pain Integumentary/Breasts Denies pruritus, Denies erythema, Denies rash and Denies wounds Neurologic Denies confusion, Denies loss of vision and Denies weakness Psychiatric Denies anxiety, Denies confusion, Denies depression, Denies homicidal ideation and Denies suicidal ideation Endocrine Denies palpitations Hematologic/Lymphatic Denies easy bruising Allergic/Immunologic Denies wheezing [facility] Medical History Anxiety (Acute ~2001) Arrhythmia (Acute) Arthritis (Acute) Chest pain (Acute) Chronic low back pain (Acute) Depression (Acute ~2001) Diverticulitis (Acute) Diverticulosis (Acute) Fragile skin (Acute) HTN (hypertension) (Acute) Hip pain, bilateral (Acute) Hyperlipidemia (Acute) Knee pain, bilateral (Acute) LBBB (left bundle branch block) (Acute) Neck pain (Acute) PVC's (premature ventricular contractions) (Acute) Pneumonia (Acute) Post-nasal drip (Acute) Scarring (Acute) Thoracogenic scoliosis, thoracolumbar region (Acute) Surgical History History of lumbar fusion (Acute ~2006) Hx of hernia repair (Acute) Hx of shoulder surgery (Acute ~2004) Hx of tonsillectomy (Acute) Social History household members: none Smoking Status: Former smoker alcohol intake: current Social History household members: none Smoking Status: Former smoker alcohol intake: current Exam Initial Vital Signs Initial Vital Signs: Vital Signs Temperature 97.9 F 10/19/18 14:10 Pulse Rate 63 10/19/18 14:10 Respiratory Rate 15 10/19/18 14:10 Blood Pressure 134/60 10/19/18 14:10 Pulse Oximetry 99 10/19/18 14:10 Const General: cooperative and well developed Nutritional Appearance: well nourished Orientation: alert, awake, oriented x3 and not confused HENMT Head: normocephalic and atraumatic Ears: external ears normal Nose: external nose normal and No nasal discharge Face and sinus: face symmetric and No dry mucous membranes Mouth: moist mucous membranes Teeth and gingiva: dentition normal Eyes General: appearance normal, both eyes and all related structures Eyelids: eyelids normal Conjunctivae: conjunctivae normal Sclera: sclerae normal Pupils: PERRL EOM: EOM intact bilaterally Neck Neck: normal visual inspection, trachea midline, No lymphadenopathy, No midline deformity and No JVD Lymphatic: No lymphedema Chest Chest: normal inspection of the chest Resp Effort & Inspection: normal respiratory effort, able to speak in complete sentences, no respiratory distress and no use of accessory muscles Auscultation: clear to auscultation bilaterally, no rales, no rhonchi and no wheezes Cardio Rate: regular rate Rhythm: regular rhythm Heart Sounds: no click, no gallops, no murmurs and no rubs Pulses: normal peripheral pulses GI Inspection: non-distended Palpation: soft, no hepatosplenomegaly, No guarding, No pulsatile mass and No tender Auscultation: normal bowel sounds Back/Spine/Pelvis Back: No CVA tenderness Cervical Spine: cervical ROM normal and No pain with cervical ROM Other: Patient is mildly decreased range of motion of his lumbar spine. He has an incision site which is healing well and appears noninfected. There is no swelling associated with his lower back. The patient has no point tenderness, except mildly over the incisional site. Patient has mild muscular tenderness bilaterally in the paraspinal musculature of the lumbar area. Skin General: no rashes or lesions noted, No jaundice and No petechiae Other: Patient has a surgical wound which is healing well. No evidence of infection. Neuro General: alert, oriented x3, gait normal and no focal motor deficits Speech: speech normal Extrem General: full ROM, no clubbing, cyanosis or edema, no pedal edema and no calf tenderness Psych Appearance: well kempt Mental Status: mental status grossly normal Attitude: cooperative Thought Content: normal and suicidality Judgment: judgment good Course Course Narrative: The patient was well appearing, and did not have any concerning features such as neurologic compromise or fever with his history. Additionally, his physical exam was benign. Given the patient's recent surgery, he was sent for a CT to evaluate the area, and this did not show any concerning findings. I did feel the patient was stable for discharge home. We have discussed the usual indications for return, as well as for follow-up. We have also discussed symptomatic management at home. MDM - Back Pain/Injury Medical Records Attestation: I reviewed the patient's medical records. Imaging Data CT scan - abdomen: Radiologist's impression: [address] [address] [address] Scan Report Signed Patient: Jong Perry BMR#: [id number] : 9Acct:[id number] Age/Sex: 78 / MDate of Service: 10/19/18 Loc: ED Accession Number: [id number] Procedure: CT kidney ureter bladder (KUB) Ordering Provider: Denise Garcia MD PROCEDURE: CT KIDNEY URETER BLADDER (KUB) INDICATIONS: back pain, post-op injury TECHNIQUE: Noncontrast 5 mm thick sections acquired from the diaphragms to the symphysis. 5 mm thick coronal and sagittal reformats were then performed. For radiation dose reduction, the following was used: automated exposure control, adjustment of mA and/or kV according to patient size. COMPARISON: None. FINDINGS: Image quality: Excellent. Lung bases: Lung bases are clear. Heart size is normal. Urinary system: Both kidneys are normal in size. No kidney stones. No hydronephrosis or perinephric fat stranding. Both ureters appear non-dilated throughout their expected courses. Bladder wall thickness is mildly increased; no calcified bladder stones. Other solid organs: Liver is normal in size. Gallbladder is unremarkable. Pancreas is normal in contours. Spleen is normal in size. Multiple splenic calcifications are consistent with chronic granulomatous disease. No adrenal nodules. Peritoneum and bowel: Unenhanced bowel loops demonstrate normal wall thickness and caliber. No free fluid or air. There is extensive sigmoid diverticulosis without evidence of diverticulitis. Nodes and vessels: No retroperitoneal or mesenteric adenopathy by size criteria. Aorta and inferior vena cava are normal in caliber. Abdominal wall: No ventral hernias. Pelvis: No free pelvic fluid. No inguinal hernias or adenopathy. Enlarged prostate. Bones: No suspicious bony lesions. No vertebral body compression fractures. Remote L3-S1 posterior lateral fusion and interbody fusion and laminectomy. IMPRESSION: 1. No evidence renal stone or ureteral stone. 2. Mild bladder wall thickening. 3. Enlarged prostate. 4. Extensive sigmoid diverticulosis without evidence of diverticulitis. 5. Multilevel lumbosacral fusion. Dictated by: Tushar Raymond M.D. on 10/19/2018 at 15:53 Approved by: Tushar Raymond M.D. on 10/19/2018 at 15:57 Discharge Plan Departure Patient Disposition: Home Clinical Impression: Strain of lumbar region Qualifiers: Encounter type: initial encounter Qualified Code(s): S39.012A - Strain of muscle, fascia and tendon of lower back, initial encounter Discharge Date/Time: 10/19/18 16:47 Interventions: ED Discharge Assessment Last Done: 10/19/18 16:47 Instructions: DI for Muscle Strain Activity Restrictions/Additional Instructions: Your CT scan looks good. Your surgical site appears appropriate, and there is no evidence of any injury to the bone or to the hardware associated with your surgical site. You have most likely sustained a partial tear to one of the soft tissue elements in the area, either tenderness or muscular. In general, the source of injuries tend to heal well on their own, given time. However, if your pain continues without abating for more than the next couple of weeks, you should talk to your surgeon about whether a repeat MRI should be done. In the meantime, take your pain medication, as needed, to help the pain. Prescriptions: No Action amlodipine [Norvasc] 5 MG tablet 5 mg PO QDAY Qty: 30 RF: 3 acetaminophen 325 mg Tablet 650 mg PO Q6HR PRN (Reason: Pain, Mild (1-3)) Qty: 0 RF: 0 docusate sodium 100 mg Capsule 100 mg PO BID Qty: 0 RF: 0 oxycodone 5 mg Tablet 5 mg PO Q4-6H PRN (Reason: pain) Qty: 40 RF: 0 hydroxyzine HCl 25 mg tablet 25 mg PO QID PRN (Reason: muscle spasm) Qty: 60 RF: 0 Referrals: Syd Crowe [Primary Care Provider] -
== END 2018-10-19 16:47 | disposition home or self-care (01) ==
PROVIDERS: Emergency Provider Emergency Medicine; PCP Family Medicine
DX: S39.012A Strain of muscle, fascia and tendon of lower back, initial encounter (principal)
CPT/HCPCS: 74176; 99283; 99284

== ENCOUNTER 2018-10-29 08:47 | Inpatient (IN) | payer MEDICARE, OTHER, SELFPAY ==
[2018-10-10 16:38] VITALS: BMI 25.7
[2018-10-24 09:22] VITALS: BMI 26.9
[2018-10-29] VITALS (21 sets, daily range): BP systolic 136–180; BP diastolic 72–92; PULSE 60–81; RESP 8–17; TEMP 36.3–37.1; O2SAT 93–100; BMI 26.9
--- NOTE | 2018-10-29 | DI.RAD.S_ITS ---
PROCEDURE: XR LUMBAR SPINE 2-3V INDICATIONS: S1 SCREW PLACEMENT TECHNIQUE: 3 operative views of the lumbar spine were acquired. COMPARISON: [facility], CR, XR LUMBAR SPINE 2-3V, 10/10/2018, 8:20. FINDINGS: Posterior lateral adiel and pedicle screw fixation from L3-S1 with interbody fusion material at L3-L4 and L4-L5. No radiographic evidence of complications. IMPRESSION: Imaging provided during lumbosacral fusion Dictated by: Tushar Raymond M.D. on 10/29/2018 at 16:53 Approved by: Tushar Raymond M.D. on 10/29/2018 at 16:58
--- NOTE | 2018-10-29 14:15 | PC.NURSE ---
Pt to OR for surgery with chart.
--- NOTE | 2018-10-29 14:46 | PM.PREOP ---
Pre-operative Note Interval Note History & Physical reviewed/Exam performed by Physician: Yes Changes to H&P: No
--- NOTE | 2018-10-29 14:51 | SUR.HOLD ---
Addendum entered by Hattie Mcfarlane R.N. 10/29/18 15:28: iv started in left forearm not rt forearm as noted earlier Original Note: Addendum entered by Hattie Mcfarlane R.N. 10/29/18 15:24: iv restarted at 1445 Original Note: pt down to opd from floor, iv not woking, d'cd, new 20 gauge iv started in rt forearm
[2018-10-29] MEDS: LACTATED RINGERS 1,000 ML 42 ML IV (15:00)
[2018-10-29] MEDS: CEFAZOLIN 2 GM/100 ML FROZ.PIGGY IV ×2 (15:18→22:33)
--- NOTE | 2018-10-29 15:21 | SUR.HOLD ---
pt states pain level at 10/19 at 1444
--- NOTE | 2018-10-29 15:42 | SUR.OPER ---
Prone on spine table, head in foam head support, padded chest and pelvic supports, gel pad at knees, lower legs supported by pillows; nipples, genitalia and toes free of pressure, arms secured on foam padded arm boards at <90 degrees abduction. Tape over blanket at thigh secured to table. Left arm positioned for comfort based on pre-induction assessment with patient feedback.
[2018-10-29] MEDS: BUPIVACAINE 0.25% W/ EPI 30 ML VIAL INJ (15:49)
[2018-10-29] MEDS: BUPIVACAINE LIPOSOME 266 MG/20 ML VIAL INJ (15:50)
--- NOTE | 2018-10-29 16:53 | PM.OP.1 ---
Operative Date/Time/Diagnoses Date of procedure: 10/29/18 Time of procedure: 14:53 Pre-op diagnosis: 1. Lumbar hardware breakage post surgery 2. History of lumbar fusion Post-op diagnosis: same Procedure & Clinicians Procedure: 1. L3-S1 posterior segmental hardware removal 2. L3-S1 posterior segmental instrumentation 3. Irrigation and debridement of skin, muscle and bone 4. L5-S1 posterolateral fusion Same procedure as scheduled: Yes Indications: Mr. Perry is 3 weeks post lumbar fusion. He was doing well post op until 6 days ago. He says he was bending over and felt a pop. He had acute onset of pain in his right lower back radiating down his right leg after the incident. X-ray shows detached screw tulip from the screw body incicating hardware breakage. After discussing with him my findings, he was scheduled for revision surgery to correct his hardware breakage. Surgeon: Lm Rashid Digital Communications Manager: Shania Mariee Click Yes if Unassisted: No Anesthesia Type: General Operative Notes Closure Type: primary Specimen(s): none sent Prosthetic devices, grafts, tissues, transplants, or devices: Globus revolve screws Estimated Blood Loss (mL): 25 Blood products transfused: none Procedure in detail: Patient was seen in the preoperative area. Risks and benefits of the surgery was discussed with the patient. Informed consent was obtained from the patient and placed in the chart. Surgical site was marked. Patient was taken to the operative room. General anesthesia was administered. Prophylactic antibiotic was given to the patient less than 30 min before the incision was made. Patient was placed into a prone position on the Tripp table. Patient's back was then prepped and draped in the sterile fashion. Time-out was performed at this time. Using patient's previous scar incision was made over the L3-S1 interval on the right side. Fascia was incised in line with skin incision. Patient's previously placed hardware over the L3-S1 level was identified by dissecting down to the level the hardware using a Bovie and a Frank. The locking caps which was removed using globus screwdriver. The locking adiel was then removed from the tulips of the pedicle screws using a Jennie. The pedicle screws were then removed using the screwdriver. The S1 screw on the right was found to have detached tulip portion due to inner locking ring breakage. The broken pieces were carefully removed using slate picker and pituitary. The wound was irrigated copiously with sterile normal saline. Leksell rongeur was used to remove granulation tissue from the wound in order to fully expose the fusion bed. The tissue that was removed using a Leksell rongeur consist of subcutaneous tissue muscle and bone. Using C-arm guidance, pedicle screws were placed into the L3, L4 and S1 pedicles on the right. This was done by placing the Jamshidi needle into the pedicles, then placing the guidewires over the Jamshidi needle, and finally placing the cannulated screws over the guidewires bilaterally. After the pedicle screws were placed, a titanium nba was locked into the heads of the pedicle screws using locking caps and torque limiting screwdriver. All screws were replaced as well as the locking caps and adiel. After all the hardware was placed, and confirmed with AP and lateral C-arm imaging, the wound was then irrigated with sterile normal saline and packed with Ray-Brittney gauze for 3 min to accomplish hemostasis. Some of the previously placed bone graft material was suctioned helped during the irrigation and debridement process. 1 cc of DBM bone graft material was obtained and placed into the posterolateral gutter at L5-S1 level in order to accomplish posterolateral fusion at L5-S1 level. After the gauze was removed the deep fascia was closed with #1 Vicryl suture. The subcutaneous layer was closed with 2-0 Vicryl. The skin was closed with skin nilton. Patient tolerated the procedure well. There were no complications. Complications: none Condition: stable Disposition: PACU Plan for aftercare: Admit to inpatient hospital
[2018-10-29] MEDS: fentaNYL 100 MCG/2 ML INJ 50 MCG IV ×2 (17:24→17:33)
--- NOTE | 2018-10-29 17:27 | SUR.PHASEI ---
1710 Patient log rolled to side, OR had reported feces; none noted. New gown/bed pad placed. Patient awake, denies nausea 1720 water given; report called to floor 1724 Rx given for pain, describes as a hot know. Awake, c/o eyes feeling scratchy. Washcloth given to remove ointment
--- NOTE | 2018-10-29 17:35 | SUR.PHASEI ---
states that pain is more on the surface and feels like a 'spray' would relieve the pain.
--- NOTE | 2018-10-29 17:41 | SUR.PHASEI ---
declines pain or anxiety med, states that he has great anxiety to get the hell out of here. Oriented, resp unlabored, skin warm and dry, tolerating PO fluids well.
--- NOTE | 2018-10-29 17:46 | SUR.PHASEI ---
1742 ST changes on his rhythm strip, shown to JUHI Mariee PA-C; EKG ordered. Patient denies any changes, skin warm and dry, resp unlabored, denies chest pain or pressure, no nausea.
--- NOTE | 2018-10-29 17:54 | SUR.PHASEI ---
12 lead EKG done, doesn't show ST depression, only sinus adama, borderline. JUHI Mariee, PAC informed. She will notify Dr. Rashid of event. Patient stable
--- NOTE | 2018-10-29 17:57 | SUR.PHASEI ---
EKG changes and EKG reported to Dr. Quezada & assymptomatic. Strip and EKG taken to the OR for him to review. Patient continues to deny any cardiac symptoms, just an intense goofiness from the medication. Back pain stable.
--- NOTE | 2018-10-29 18:06 | SUR.PHASEI ---
OK to take patient to floor per Dr. Quezada/KALIN Matthews. VSS, remains assymptomatic.
--- NOTE | 2018-10-29 18:16 | SUR.PHASEI ---
prepared to transfer, awaiting help from the floor. Patient calm, awake, oriented, skin warm and dry, resp even and regular.
--- NOTE | 2018-10-29 18:34 | SUR.PHASEI ---
181 to , bed down and locked, call light within reach. Pt calm, talking, reports pain hasn't changed but he doesn't care. Back dressing remains CDI, Stable. Report updated upon arrival. SCD's on.
[2018-10-29] MEDS: SODIUM CHLORIDE 0.9% 1,000 ML 100 ML IV (18:53)
[2018-10-29] MEDS: OXYCODONE IR 5 MG TABLET 10 MG PO (20:12)
[2018-10-29] MEDS: SENNOSIDES 8.6 MG TABLET 17.2 MG PO (20:14)
[2018-10-29] MEDS: DOCUSATE 100 MG CAPSULE PO (20:15)
--- NOTE | 2018-10-29 22:00 | PC.NURSE ---
1824: pt arrived from pacu. A&OX3. 96%RA. no n/v. dressing cdi. cms+. pedal pulses palpable. L.pedal pulse weak. pt able to log roll. SBA to the BR. SCD's on. call light in reach. bed alarm active.
--- NOTE | 2018-10-30 00:04 | PC.NURSE ---
Addendum entered by Meron Joseph R.N. 10/30/18 06:22: Has been awake most of night. Continues to deny pain this morning except for like a needle stick at incision area. Offered to help reposition and/or apply ice but declines and does not want pain medication at this time. Up to bathroom earlier and voided + had a small BM. Able to walk with SBA and holding onto IV pole. Original Note: Patient is alert and oriented. Breath sounds CTA with RA sat of 96%. HRR. Denies nausea. BT present and is passing flatus. Voiding per urinal and denies dysuria, frequency or urgency. Able to turn self in bed. Dressing to back is CDI. Chronic numbness in bilateral feet otherwise CMS is intact. Refusing SCD's. Denies weakness/unsteadiness when out of bed and states he does not use an assistive device. Denies pain. Fall risk score is moderate; bed alarm is activated.
[2018-10-30 04:20] VITALS: BP 156/73; PULSE 77; RESP 16; TEMP 36.9; O2SAT 98
[2018-10-30] MEDS: CEFAZOLIN 2 GM/100 ML FROZ.PIGGY IV (05:29)
[2018-10-30 05:44] LABS: Hematocrit 33.9 % (41-53); Hemoglobin 11.4 g/dL (13.5-17.5)
--- NOTE | 2018-10-30 07:59 | P.PN_ITS ---
Subjective Date Patient Seen: 10/30/18 Time Patient Seen: 07:55 Interval history: Hospital day 2, postop day 1 following L3 through S1 hardware removal, exploration and replacement of hardware. Patient had broken right S1 screw head. He states he continues having pain to his right leg unchanged since surgery. He has not had physical therapy yet. He has been voiding and had a bowel movement. Patient lives alone on [facility]. He is concerned about being discharged to soon because of his persisting pain and because of limited help. He was asking about possible SNF stay for few days before going home. I told him we would work with PT today see how he does. Exam Vital Signs (past 8 hours): - 10/30/18 04:20 Temperature 98.4 F Pulse Rate 77 Respiratory Rate 16 Blood Pressure 156/73 H Pulse Oximetry 98 Oxygen Delivery Method Room Air Oxygen Flow Rate 0 Narrative Exam Narrative: Alert, oriented no acute distress lying in bed. Back. Dressings to lumbar area are dry without drainage or inflammation. Legs. No calf pain or swelling. Pulses symmetrical. Objective Labs Result Diagrams: 10/30/18 05:04 Labs: Laboratory Results - last 24 hr 10/30/18 05:04 Hgb 11.4 L Hct 33.9 L Assessment & Plan Post-op Postoperative Procedures Operation Date: 10/29/18 15:15 Actual Procedures Side Surgeon p Lumbar spine S1 screw removal/replacement Lm Rashid MD Plan: Will place CovRsite dressing to lumbar wound. Will start patient on dexamethasone to see if this will help with his right leg pain. Patient will work with PT today. Will have Retort Press Operator talk with the patient regarding discharge options. Anticipate discharge to home unless he needs further help and care based on PT evaluation and nursing. Quality VTE Deep Vein Thrombosis/Pulmonary Embolism Present on Admission: No
[2018-10-30 08:00] VITALS: BP 158/88; PULSE 71; RESP 16; TEMP 36.4; O2SAT 99
[2018-10-30] MEDS: DEXAMETHASONE 4 MG TABLET 10 MG PO (08:35)
[2018-10-30] MEDS: AMLODIPINE 5 MG TABLET PO (08:35)
[2018-10-30] MEDS: DOCUSATE 100 MG CAPSULE PO ×2 (08:35→21:13)
[2018-10-30] MEDS: SODIUM CHLORIDE 0.9% FLUSH 10 ML IV ×2 (08:36→21:14)
[2018-10-30] MEDS: OXYCODONE IR 5 MG TABLET 10 MG PO ×2 (08:36→14:59)
--- NOTE | 2018-10-30 10:45 | CM.DANOTE ---
Addendum entered by Yamile Manley R.N. 10/30/18 14:58: Spoke to Jeffery at [facility]. He stated that they can accept patient tomorrow. PASSR completed. Original Note: DCP: Case received, EMR reviewed and met with patient. Introduced self and role. DCP template completed with information currently available. Patient is a 78 year old male who admitted yesterday morning to the care of the surgical team. PCP: Dr. Crowe. Payer: confirmed: Medicare/[employer]. Patient came to hospital, was air lifted, due to significant back and leg pain. He had been here from [place] to the , with prior lumbar surgery. It is noted that he had a broken screw head in his back. He had surgery to repair this yesterday. Patient lives alone, friends, [place], have been trying to help patient at home, but they stated that his home is unkept, and that he hoards various items. Met with patient. He stated that he feels he may need some [facility] rehab, either that or home health. Patient will be working with physical therapy today. Went over Medicare Choice list with him, and he is requesting [facility], because it's close to where some friends are. Patient has Medicare, and may be able to use benefit from recent last admission, since it was under 30 days. Called Jeffery at [facility]. Gave him name of patient and situation. Let him know that he may need some short term skilled rehab. Faxed over face sheet to him to review. P: DCP to continue to follow. Will be working with physical therapy today. It would be hopeful that [facility] can accept patient. Yamile Manley RN/Real Estate Marketing Coordinator
--- NOTE | 2018-10-30 11:02 | PT.IPTN ---
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 He was able to transfer from bed to chair without AD. Pt was back to bed upon assessment, stated I didnt sleep last night and do not want to do PT because of my severe back pain. Reattempt this PM
[2018-10-30 14:00] VITALS: BP 121/73; PULSE 75; RESP 15
[2018-10-30 14:14] VITALS: BMI 27.1
--- NOTE | 2018-10-30 14:19 | PT.IIE ---
Current Diagnoses Other idiopathic scoliosis, lumbar region (10/29/18) Other mechanical complication of other internal orthopedic devices, implants and grafts, initial encounter (10/29/18) Surgery Performed Operation Date: 10/29/18 15:15 Actual Procedures p Lumbar spine S1 screw removal/replacement - Lm Rashid MD Surgical History (Last Reviewed 10/24/18 @ 04:56 by Denise Garcia MD) History of lumbar fusion (Acute ~2006) Hx of hernia repair (Acute) Hx of shoulder surgery (Acute ~2004) Hx of tonsillectomy (Acute) Medical History (Last Reviewed 10/24/18 @ 04:56 by Denise Garcia MD) Anxiety (Acute ~2001) Arrhythmia (Acute) Arthritis (Acute) Chest pain (Acute) Chronic low back pain (Acute) Depression (Acute ~2001) Diverticulitis (Acute) Diverticulosis (Acute) Fragile skin (Acute) HTN (hypertension) (Acute) Hip pain, bilateral (Acute) Hyperlipidemia (Acute) Knee pain, bilateral (Acute) LBBB (left bundle branch block) (Acute) Neck pain (Acute) PVC's (premature ventricular contractions) (Acute) Pneumonia (Acute) Post-nasal drip (Acute) Scarring (Acute) Thoracogenic scoliosis, thoracolumbar region (Acute) Physical Therapy Inpatient Evaluation/Re-Eval M1 PT/OT-IP Prior Functional Status Start: 10/30/18 11:00 Freq: NEEDED Status: Active Protocol: Document 10/30/18 13:45 HH (Rec: 10/30/18 14:19 [email or web address]) Medical Review Prior Functional Status Medical History Reviewed Yes Diet/Fluid Consistency Regular Communication No deficits noted. Able to make needs known Mobility and Gait independent ambulator at home and community without AD. He used SPC/ walking sticks sometimes for long distance walking. Activities of Daily Living and IADL's mod indep I/ADLs Social History Household Members none Living Arrangements House Number of Floors (Floors) Two Floors Number of Stairs To Enter/Railing? 5 SE L railing ascending. Pt states he will stay on main level, has [place] shower with a threshold to step in. Lives alone Home Environment Standard Height Toilet Walk in Shower Home Equipment Front Wheel Walker Straight Cane Employment Status Retired Additional Social History Comment Pt states friends can stop by to assist but will not stay with him. Pt underwent L5-S1 hardware removal in 2006, L3- S1 TLIF on 10/10/18. Pt stated he felt a popped while he was twisting his back to get OOB on that Satuday. He then experienced new onset of sharp pain at his back radiating down to his leg as well. He was found to have a broken screw head in his back. He had surgery to repair this yesterday. Patient lives alone , friends, Jacque Barfield, have been trying to help patient at home, but they stated that his home is unkept , and that he hoards various items. M2 PT-IP Current Condition Start: 10/30/18 11:00 Freq: NEEDED Status: Active Protocol: Document 10/30/18 13:45 (Rec: 10/30/18 14:19 [email or web address]) Physical Therapy Current Condition Current Condition Evaluation Date 10/30/18 Treatment Diagnosis L3-S1 hardware removal, exploration and replacement of hardware, weakness Onset Date 10/29/18 Precautions Lumbar Precautions Log Roll No Twisting Limit Bending Lifting Restriction of 10 lbs Gait Belt above Incisional Area Weight Bearing Status Weight Bearing Status Weight Bear as Tolerated M3 PT-IP Subjective Start: 10/30/18 11:00 Freq: NEEDED Status: Active Protocol: Document 10/30/18 13:45 (Rec: 10/30/18 14:19 [email or web address]) Subjective Physical Therapy Visit Type Type Initial Evaluation Visit Start Time 13:40 Visit Stop Time 14:00 Total Visit Minutes 20 Notes Per RN, pt has gotten OOB to bathroom and chair with FWW but c/o pain Number of FINISHING INSPECTOR Visits 0 Physical Therapy Visit Comments Patient Comments I stil have a lot of pain at this point but im willing to get to chair. Patient Goals To return home with HH or participate short term rehab in SNF Therapy Pain Assessment Pain When Pain Assessed During Mobility Pain Present Pain Present Pain Reported Location Lower Posterior Back Intensity 5 Description Acute Pain Management Techniques Apply Cold Modification of Treatment Re-positioning Timing of Activity with Medications M4 PT-IP Mobility and Gait Start: 10/30/18 11:00 Freq: NEEDED Status: Active Protocol: Document 10/30/18 13:45 HH (Rec: 10/30/18 14:19 [email or web address]) PT-Bed Mobility Assessment Rolling Type of Rolling Log Rolling Roll to Left Level of Assist Standby Assistance Supine to Sit Supine to Sit Standby Assistance Bedrails Scooting Scooting to Edge of Bed Standby Assistance Scooting Up and Down in Bed Standby Assistance PT-Transfer Assessment Sit to and From Stand Sit to and from Stand Contact Guard Assistance Use of Upper Extremities Equipment Transfer Assistive Device None Bed Rail Gait Belt Orthotic/Prosthetic Devices or Brace: No Transfers Transfer Destination Bed Chair Toilet Transfer Technique Stand Step Pivot Transfer Ability Level of Assist Contact Guard Assistance Comments Mobility Comments Pt was slightly impulsive and needs reminder to use LOG for bed mobility. He also often needed to remind him to be slower and be aware of precautions. Pt was able to transfer himself to chair/ toilet with CGA/SBA. Gait Assessment Gait Gait Assistance Required: Contact Guard Assist Distance (Feet) 250 Able to Maintain Weight Bearing Status Yes During Gait Assistive Devices Assistive Device None Gait Belt Orthotic/Prosthetic Devices or Brace: No Gait Deviations General Gait Pattern Decreased Stride Length Decreased Feet Clearance Flexed Trunk Factors Limiting Gait Function Factors Limiting Gait Function Decreased Activity Tolerance Decreased Strength Pain Poor Safety Awareness Comments Gait Comments Pt c/o R back pain during amb without AD. Pt amb with a slight flexed trunk and needed cues for upright posture. Pt also tends to turns with his shoulders first instead of pivoting. Stair Climbing Assessment Comments Stair Climbing Comments did not attempt PT-Balance Assessment Sitting Balance and Reactions Static Sitting Balance Ability Normal Dynamic Sitting Balance Ability Normal Standing Balance and Reactions Static Standing Balance Ability Normal Dynamic Standing Balance Ability Normal M5 PT-IP Objective Assessments Start: 10/30/18 11:00 Freq: NEEDED Status: Active Protocol: Document 10/30/18 13:45 (Rec: 10/30/18 14:19 [email or web address]) Orientation Orientation/Cognition Level of Alertness Alert Orientation Name Age Birthday Month Date Year Day of Week Place Situation Language Function Ability No Deficits Noted Safety Awareness Decreased Safety Awareness Memory Description No Deficits Noted Gross Range of Motion Upper Extremity ROM Assessment Within Functional Limits Lower Extremity ROM Assessment Within Functional Limits Strength Upper Extremity Strength Assessment Within Functional Limits Lower Extremity Strength Assessment Within Functional Limits Coordination Assessment Gross Coordination Gross Coordination WNL Sensation Assessment Sensation Gross Sensation WNL Light Touch Intact Proprioception (Position) Intact Muscle Tone Muscle Tone WNL Yes M6 PT-IP Treatment Start: 10/30/18 11:00 Freq: NEEDED Status: Active Protocol: Document 10/30/18 13:45 (Rec: 10/30/18 14:19 [email or web address]) Physical Therapy Treatment Exercises Exercises Ankle Pumps Quad Sets Education Education Provided Precautions Weight Bearing Status Post-Op Packet Safety M7 PT-IP Assessment and Plan Start: 10/30/18 11:00 Freq: NEEDED Status: Active Protocol: Document 10/30/18 13:45 (Rec: 10/30/18 14:19 [email or web address]) PT Summary Assessment and Plan Potential Rehabilitation Potential Good Status of Condition at Evaluation Stable Summary Impairments Pain ROM Strength Bed Mobility Transfers Gait Activity Tolerance Assessment Summary Pt is a 78yo male POD #2 L3 - S1 hardware removal, exploration and replacement of hardware due to hardware breakage. Pt jeanette tx well with amb distance up to 250 ft without AD CGA, transfer with CGA/SBA. However, pt does need frequent reminder of his precautions and he tends to be impulsive with his activities that could possibly reinjure his back. Pt also admitted he twisted his back without paying attention couple days after his sx on 10/11/18. Pt also lives alone and does not have enough assistance for ADLs/IADLs. Pt will benefit from short term rehab at [facility] to improve his mobility and increase his safety awareness. Goals Bed Mobility Goal Standby Assistance Transfer Goal Standby Assistance Gait Goal Standby Assistance Gait Distance 300 Other Goals stair climb x 5 steps with L railing Days to Meet Goals 5 Frequency of Treatment Frequency Of Treatment Twice a Day Treatment Plan Physical Therapy Treatment Plan Bed Mobility Training Transfer Training Gait Training Therapeutic Exercise Post Op Education Discharge Planning Other Recommendations and Next Treatment review precautions Focus transfer and gait training as jeanette with/without AD Recommendations To Nursing Amount of Assist Needed Standby Assistance Discharge Recommendations PT Discharge Recommendations SNF Rehab Other Discharge Recommendations short term rehab at [facility]
--- NOTE | 2018-10-30 14:47 | PC.NURSE ---
Ortho: This am pt was reporting a stabbing type pain in his back at the distal end of the incision which radiated down the rt leg. Was started on steroids and received oral meds this am. Pain then in control a couple of hours later. Dressing changed to low back, incision stapled, minimal redness, wound edges approx, coversite dressing applied. has been working with PT. Needs repeat cues to follow lami precautions and log rolling. Cont w/poc.
--- NOTE | 2018-10-30 15:45 | OT.IP.EVAL ---
Current Diagnoses Other idiopathic scoliosis, lumbar region (10/29/18) Other mechanical complication of other internal orthopedic devices, implants and grafts, initial encounter (10/29/18) Surgery Performed Operation Date: 10/29/18 15:15 Actual Procedures p Lumbar spine S1 screw removal/replacement - Lm Rashid MD Past Medical History (Last Reviewed 10/24/18 @ 04:56 by Denise Garcia MD) Anxiety (Acute ~2001) Arrhythmia (Acute) Arthritis (Acute) Chest pain (Acute) Chronic low back pain (Acute) Depression (Acute ~2001) Diverticulitis (Acute) Diverticulosis (Acute) Fragile skin (Acute) HTN (hypertension) (Acute) Hip pain, bilateral (Acute) Hyperlipidemia (Acute) Knee pain, bilateral (Acute) LBBB (left bundle branch block) (Acute) Neck pain (Acute) PVC's (premature ventricular contractions) (Acute) Pneumonia (Acute) Post-nasal drip (Acute) Scarring (Acute) Thoracogenic scoliosis, thoracolumbar region (Acute) Surgical History (Last Reviewed 10/24/18 @ 04:56 by Denise Garcia MD) History of lumbar fusion (Acute ~2006) Hx of hernia repair (Acute) Hx of shoulder surgery (Acute ~2004) Hx of tonsillectomy (Acute) Occupational Therapy Inpatient Evaluation/Re-Eval M1 PT/OT-IP Prior Functional Status Start: 10/30/18 15:06 Freq: NEEDED Status: Active Protocol: Document 10/30/18 15:07 [facility] (Rec: 10/30/18 15:44 [facility] [id number]) Medical Review Prior Functional Status Medical History Reviewed Yes Diet/Fluid Consistency Regular Communication No deficits noted. Able to make needs known Mobility and Gait independent ambulator at home and community without AD. He used SPC/ walking sticks sometimes for long distance walking. Activities of Daily Living and IADL's mod indep I/ADLs Social History Household Members none Living Arrangements House Number of Floors (Floors) Two Floors Number of Stairs To Enter/Railing? 5 SE L railing ascending. Pt states he will stay on main level, has [place] shower with a threshold to step in. Lives alone Home Environment Standard Height Toilet Walk in Shower Home Equipment Front Wheel Walker Straight Cane Employment Status Retired Additional Social History Comment Pt states friends can stop by to assist but will not stay with him. Pt underwent L5-S1 hardware removal in 2006, L3- S1 TLIF on 10/10/18. Pt stated he felt a popped while he was twisting his back to get OOB on that Satuday. He then experienced new onset of sharp pain at his back radiating down to his leg as well. He was found to have a broken screw head in his back. He had surgery to repair this yesterday. Patient lives alone , friends, Jacque Hutchinsondwell, have been trying to help patient at home, but they stated that his home is unkept , and that he hoards various items. M2 OT-IP Current Condition Start: 10/30/18 15:06 Freq: Status: Active Protocol: Document 10/30/18 15:07 [facility] (Rec: 10/30/18 15:44 [facility] [id number]) Occupational Therapy Current Condition Current Condition Evaluation Date 10/30/18 Treatment Diagnosis Lumbar Hardware breakage post sx Diagnosis Onset Date 10/10/18 Weight Bearing Status Weight Bearing Status Weight Bear as Tolerated M3 OT- IP Subjective and Pain Start: 10/30/18 15:06 Freq: Status: Active Protocol: Document 10/30/18 15:07 [facility] (Rec: 10/30/18 15:44 [facility] [id number]) OT- Subjective Occupational Therapy Visit Type Type Initial Evaluation Visit Start Time 14:30 Visit Stop Time 15:00 Total Visit Minutes 30 Occupational Therapy Visit Comments Patient Comments Pt agreeble to OT eval. OT Pain Assessment Pain When Pain Assessed During Mobility Pain Present Pain Present Pain Reported Location Lower Posterior Back Intensity 3 Scale Used Numeric (1 - 10) M4 OT- IP ADL's Start: 10/30/18 15:06 Freq: Status: Active Protocol: Document 10/30/18 15:07 [facility] (Rec: 10/30/18 15:44 [facility] [id number]) OT ADL-Grooming General Evaluation Grooming Ability Independent Comments OT Grooming Comments Independent for all grooming needs while standing at the sink. OT ADL-Dressing Comments OT Dressing Comments Pt not wanting to demonstrate at this time of actually kaylah /doffing socks but states usually crosses his legs over to do his socks and has slip on shoes. OT ADL-Toileting Comments OT Toileting Comments Pt able to sit down to the toilet with use of grab bar, pt states has edge of door and counter to assist at home. M5 OT- IP IADL's Start: 10/30/18 15:06 Freq: Status: Active Protocol: Document 10/30/18 15:07 [facility] (Rec: 10/30/18 15:44 [facility] [id number]) OT-Instrumental Activities of Daily Living Medication Management Medication Management No Deficits Identified Money Management Money Management No Deficits Identified Meal Preparation Meal Preparation Comments Pt states will get more help for cooking needs from his house keeper. Tube Molder Fiberglass Tube Molder Fiberglass Comments Pt has a girl that comes and cleans. M6 OT- IP Functional Cognition Start: 10/30/18 15:06 Freq: Status: Active Protocol: Document 10/30/18 15:07 [facility] (Rec: 10/30/18 15:44 [facility] [id number]) Cognitive Factors Limiting Selfcare Function Cognitive Ability Level of Alertness Alert Patient Orientation Name Place Situation Attention Span Ability Capable of Focused Attention Capable of Sustained Attention Ability to Follow Commands Able to Follow Multi-Step Commands Safety Awareness Underestimates Need for Assistance Cognitive Comments Cognitive Assessment Comments Pt able to follow multiple commands , able to recall precautions, however needing occasional cues to maintain precautions as pt tend to be a bit impulsive. OT- Vision and Hearing OT- Hearing Assessment OT- Hearing Assessment WFL OT- Vision Assessment Visual Acuity WFL M7 OT- IP Mobility and Balance Start: 10/30/18 15:06 Freq: Status: Active Protocol: Document 10/30/18 15:07 [facility] (Rec: 10/30/18 15:44 [facility] [id number]) OT- Bed Mobility Assessment Sit to Supine Sit to Supine Assist Standby Assistance Bedrails OT-Transfer Assessment Sit to and From Stand Sit to and from Stand Standby Assistance 1 Person Assistance Transfers Transfer Ability Standby Assistance 1 Person Assistance Technique Transfer Destination Bed Toilet Transfer Technique Stand Step Pivot Devices Transfer Assistive Devices None Comments Mobility Comments Pt SBA without FWW to walk to the sink, bathroom and get back to bed. Pt tends to roll leading with his hip versus roll in one unit. OT- Balance Assessment Sitting Balance and Reactions Static Sitting Balance Ability Normal Dynamic Sitting Balance Ability Normal Standing Balance and Reactions Static Standing Balance Ability Normal M8 OT- IP Objective Assessments Start: 10/30/18 15:06 Freq: Status: Active Protocol: Document 10/30/18 15:07 [facility] (Rec: 10/30/18 15:44 [facility] [id number]) OT Gross Range of Motion Upper Extremity Range of Motion Assessment Within Functional Limits M9 OT- IP Assessment and Plan Start: 10/30/18 15:06 Freq: Status: Active Protocol: Document 10/30/18 15:07 [facility] (Rec: 10/30/18 15:44 [facility] [id number]) OT Summary Assessment and Plan Potential Rehabilitation Potential Good Analytic Complexity at Evaluation Low Summary OT Impairments Balance Functional Cognition Functional Mobility Dressing Bathing Progress Towards Goals Progressing Toward Goals Assessment Summary Pt low complexity and tends to more a little fast and at times marginal for back precautions. Pt lives alone and may benefit from short skilled rehab to reiterate and fine tune especially bed mobility needs prior to going home. Therefore short skilled rehab versus home with increased assist and HH. Goals Grooming Goal Independent Dressing Goal Independent Toileting Goal Independent Bathing Goal Standby Assistance Toilet Transfer Goal Independent Shower Transfer Goal Standby Assistance Patient/Caregiver Education Goal Demonstrate Post-Op Precautions Days to Meet Goals 3 Frequency of Treatment Frequency Of Treatment Once a Day Treatment Plan OT Treatment Plan ADL Training Functional Cognition Training Functional Mobility Patient/Family Education Discharge Planning Other Treatment Recommendations and Next Shower,dress and incorporation Treatment Focus of safety for back precautions. Discharge Recommendations OT Discharge Recommendations SNF Rehab Other Discharge Recommendations If pt able to get increased assist at home , home with assist.
[2018-10-30 15:59] VITALS: BP 135/84; PULSE 74; RESP 16; TEMP 36.6; O2SAT 98
[2018-10-30] MEDS: DEXAMETHASONE 4 MG TABLET PO (16:13)
[2018-10-30 20:35] VITALS: BP 132/61; PULSE 71; RESP 16; TEMP 36.7; O2SAT 96
[2018-10-30] MEDS: SENNOSIDES 8.6 MG TABLET 17.2 MG PO (21:13)
[2018-10-31 01:10] VITALS: BP 135/73; PULSE 63; RESP 14; TEMP 36.8; O2SAT 97
[2018-10-31] MEDS: DEXAMETHASONE 4 MG TABLET PO ×4 (01:12→23:58)
[2018-10-31] MEDS: MAGNESIUM HYDROXIDE 30 ML UDC PO (01:24)
--- NOTE | 2018-10-31 07:45 | P.PN_ITS ---
Subjective Date Patient Seen: 10/31/18 Interval history: Patient seen bedside status post Lumbar spine S1 screw rem oval/replacement. Patient is doing well, his pain is improved however he is concerned about his constipation. He does have a history of diverticulitis. He is recommendecd for a SNF but would prefer to go home. Exam Vital Signs (past 8 hours): - 10/31/18 01:10 Temperature 98.3 F Pulse Rate 63 Respiratory Rate 14 Blood Pressure 135/73 Pulse Oximetry 97 Oxygen Delivery Method Room Air Oxygen Flow Rate 0 Narrative Exam Narrative: Well-developed, well-nourished, no acute distress. Alert and oriented to person, place, and time. Dressing on lumbar spine is clean, dry, and intact with no signs of drainage. Minimal erythema and generalized swelling around the surgical site. Neurovascularly intact in bilateral lower extremities with soft and compressible calves. Range of motion intact bilateral lower e xtremities. Objective Labs Result Diagrams: 10/30/18 05:04 Assessment & Plan Post-op Postoperative Procedures Operation Date: 10/29/18 15:15 Actual Procedures Side Surgeon p Lumbar spine S1 screw removal/replacement Lm Rashid MD 1. s/p above procedure POD #2- continue PT/OT, pain control, bowel regiment. Dispo-d/c home preferably tomorrow. Quality VTE Deep Vein Thrombosis/Pulmonary Embolism Present on Admission: No
[2018-10-31 08:00] VITALS: BP 172/89; PULSE 92; RESP 16; TEMP 36.3; O2SAT 100
[2018-10-31] MEDS: AMLODIPINE 5 MG TABLET PO (08:18)
[2018-10-31] MEDS: DOCUSATE 100 MG CAPSULE PO ×2 (08:18→20:03)
[2018-10-31] MEDS: SODIUM CHLORIDE 0.9% FLUSH 10 ML IV ×2 (08:22→20:03)
--- NOTE | 2018-10-31 10:20 | PT.IPTN ---
Current Diagnoses Other idiopathic scoliosis, lumbar region (10/29/18) Other mechanical complication of other internal orthopedic devices, implants and grafts, initial encounter (10/29/18) Surgery Performed Operation Date: 10/29/18 15:15 Actual Procedures p Lumbar spine S1 screw removal/replacement - Lm Rashid MD Physical Therapy Treatment Note M2 PT-IP Current Condition Start: 10/30/18 11:00 Freq: NEEDED Status: Active Protocol: Document 10/30/18 13:45 HH (Rec: 10/30/18 14:19 [email or web address]) Physical Therapy Current Condition Current Condition Evaluation Date 10/30/18 Treatment Diagnosis L3-S1 hardware removal, exploration and replacement of hardware, weakness Onset Date 10/29/18 Precautions Lumbar Precautions Log Roll No Twisting Limit Bending Lifting Restriction of 10 lbs Gait Belt above Incisional Area Weight Bearing Status Weight Bearing Status Weight Bear as Tolerated M3 PT-IP Subjective Start: 10/30/18 11:00 Freq: NEEDED Status: Active Protocol: Document 10/31/18 10:20 GGD (Rec: 10/31/18 12:00 GGD [id number]) Subjective Physical Therapy Visit Type Type Treatment Note Visit Start Time 09:55 Visit Stop Time 10:20 Total Visit Minutes 25 Number of REGULATORY COMPLIANCE COORDINATOR Visits 1 Physical Therapy Visit Comments Patient Comments Pt states he doing better. M4 PT-IP Mobility and Gait Start: 10/30/18 11:00 Freq: NEEDED Status: Active Protocol: Document 10/31/18 10:20 GGD (Rec: 10/31/18 12:00 GGD [id number]) PT-Transfer Assessment Sit to and From Stand Sit to and from Stand Standby Assistance Use of Upper Extremities Equipment Transfer Assistive Device None Gait Belt Orthotic/Prosthetic Devices or Brace: No Transfers Transfer Destination Chair Transfer Technique Stand Step Pivot Transfer Ability Level of Assist Contact Guard Assistance Gait Assessment Gait Gait Assistance Required: Contact Guard Assist Distance (Feet) 600 Able to Maintain Weight Bearing Status Yes During Gait Assistive Devices Assistive Device None Gait Belt Orthotic/Prosthetic Devices or Brace: No Gait Deviations General Gait Pattern Decreased Stride Length Decreased Feet Clearance Flexed Trunk Factors Limiting Gait Function Factors Limiting Gait Function Decreased Activity Tolerance Decreased Strength Pain Poor Safety Awareness Comments Gait Comments Pt needed cues for upright posture. Stair Climbing Assessment Evaluation Level of Assist On Stairs Contact Guard Assistance Devices Stair Climbing Assistive Devices Right Railing Technique/Endurance Stair Climbing Direction Ascend and Descend Stair Climbing Technique Step Over Step Number of Steps Climbed 3 Query Text: Stair Climbing Set # Repetitions (reps) 1 M5 PT-IP Objective Assessments Start: 10/30/18 11:00 Freq: NEEDED Status: Active Protocol: Document 10/30/18 13:45 HH (Rec: 10/30/18 14:19 HH [email or web address]) Orientation Orientation/Cognition Level of Alertness Alert Orientation Name Age Birthday Month Date Year Day of Week Place Situation Language Function Ability No Deficits Noted Safety Awareness Decreased Safety Awareness Memory Description No Deficits Noted Gross Range of Motion Upper Extremity ROM Assessment Within Functional Limits Lower Extremity ROM Assessment Within Functional Limits Strength Upper Extremity Strength Assessment Within Functional Limits Lower Extremity Strength Assessment Within Functional Limits Coordination Assessment Gross Coordination Gross Coordination WNL Sensation Assessment Sensation Gross Sensation WNL Light Touch Intact Proprioception (Position) Intact Muscle Tone Muscle Tone WNL Yes M6 PT-IP Treatment Start: 10/30/18 11:00 Freq: NEEDED Status: Active Protocol: Document 10/31/18 10:20 GGD (Rec: 10/31/18 12:00 GGD [id number]) Physical Therapy Treatment Education Education Provided Precautions Safety M7 PT-IP Assessment and Plan Start: 10/30/18 11:00 Freq: NEEDED Status: Active Protocol: Document 10/31/18 10:20 GGD (Rec: 10/31/18 12:00 GGD [id number]) PT Summary Assessment and Plan Summary Assessment Summary Pt improving with mobility. He had no increase in pain with gait without AD. He was safe and stable with stair mobility . He did need min cues for posture. He is safe for d/C home when medically stable. Frequency of Treatment Frequency Of Treatment Once a Day Treatment Plan Physical Therapy Treatment Plan Bed Mobility Training Transfer Training Gait Training Therapeutic Exercise Post Op Education Discharge Planning Other Recommendations and Next Treatment bed mobility Focus Recommendations To Nursing Amount of Assist Needed Standby Assistance Discharge Recommendations PT Discharge Recommendations Home with Assistance
--- NOTE | 2018-10-31 12:03 | OT.IP.TRT ---
Current Diagnoses Other idiopathic scoliosis, lumbar region (10/29/18) Other mechanical complication of other internal orthopedic devices, implants and grafts, initial encounter (10/29/18) Surgery Performed Operation Date: 10/29/18 15:15 Actual Procedures p Lumbar spine S1 screw removal/replacement - Lm Rashid MD Occupational Therapy Treatment Note M2 OT-IP Current Condition Start: 10/30/18 15:06 Freq: Status: Active Protocol: Document 10/30/18 15:07 [facility] (Rec: 10/30/18 15:44 [facility] [id number]) Occupational Therapy Current Condition Current Condition Evaluation Date 10/30/18 Treatment Diagnosis Lumbar Hardware breakage post sx Diagnosis Onset Date 10/10/18 Weight Bearing Status Weight Bearing Status Weight Bear as Tolerated M3 OT- IP Subjective and Pain Start: 10/30/18 15:06 Freq: Status: Active Protocol: Document 10/31/18 11:52 [facility] (Rec: 10/31/18 12:03 [facility] [email or web address]) OT- Subjective Occupational Therapy Visit Type Type Treatment Note Visit Start Time 11:00 Visit Stop Time 11:40 Total Visit Minutes 40 Occupational Therapy Visit Comments Patient Comments Pt agreeable to shower at this time. OT Pain Assessment Pain When Pain Assessed At Rest Pain Present Pain Present Denied Pain M4 OT- IP ADL's Start: 10/30/18 15:06 Freq: Status: Active Protocol: Document 10/31/18 11:52 [facility] (Rec: 10/31/18 12:03 [facility] [email or web address]) OT ADL-Dressing General Eval Upper Body Dressing Ability Independent Lower Body Dressing Ability Independent Assistive Devices Dressing Assistive Devices Campaign Manager Comments OT Dressing Comments Pt able to do all dressing need with good safety and use of LB AED. OT ADL-Toileting General Evaluation Toileting Ability Independent Comments OT Toileting Comments Pt able to independently lean to the wall and able to use right hand to reach for all pericare needs with good safety. Pt's arms are long and able to reach without difficulty. OT ADL-Bathing Bathing Type Bathing Type Shower General Evaluation Bathing Ability Independent Devices Bathing Equipment Hand Held Shower Sprayer Grab Bars Comments OT Bathing Comments Pt able to adhere to all back precautions with good safety and understanding and able to sit when trying to dry his legs/feet. Able to suggest to increase ease to dry his back to have a ezekiel cloth robe. M5 OT- IP IADL's Start: 10/30/18 15:06 Freq: Status: Active Protocol: Document 10/31/18 11:52 [facility] (Rec: 10/31/18 12:03 [facility] [email or web address]) OT-Instrumental Activities of Daily Living Home Safety Awareness Awareness of Need for Assistance at Home Good Awareness Ability to Problem Solve Emergency Able to Problem Solve Situations Medication Management Medication Management No Deficits Identified Money Management Money Management No Deficits Identified Meal Preparation Meal Preparation Comments Pt states will get more help for cooking needs from his house keeper. Centrifugal Spinner Centrifugal Spinner Comments Pt has a girl that comes and cleans. M6 OT- IP Functional Cognition Start: 10/30/18 15:06 Freq: Status: Active Protocol: Document 10/31/18 11:52 [facility] (Rec: 10/31/18 12:03 [facility] [email or web address]) Cognitive Factors Limiting Selfcare Function Cognitive Ability Level of Alertness Alert Patient Orientation Name Age Birthday Month Date Year Day of Week Place Situation Attention Span Ability Capable of Focused Attention Capable of Sustained Attention Ability to Follow Commands Able to Follow Multi-Step Commands Memory Description No Deficits Noted Safety Awareness No Deficits Noted Problem Solving Ability No deficits Noted Executive Function Ability No Deficits Noted Cognitive Comments Cognitive Assessment Comments No deficits noted today. Pt completed [place] Making B with score of 81 seconds, per [employer] a score of greater than 180 seconds implies greater risk on getting into a car accident . M7 OT- IP Mobility and Balance Start: 10/30/18 15:06 Freq: Status: Active Protocol: Document 10/31/18 11:52 [facility] (Rec: 10/31/18 12:03 [facility] [email or web address]) OT-Transfer Assessment Sit to and From Stand Sit to and from Stand Independent Transfers Transfer Ability Independent Technique Transfer Destination Bed Shower Stall Toilet Devices Transfer Assistive Devices None Comments Mobility Comments Pt independent in the room for mobility needs. OT- Balance Assessment Sitting Balance and Reactions Static Sitting Balance Ability Normal Dynamic Sitting Balance Ability Normal Standing Balance and Reactions Static Standing Balance Ability Normal Dynamic Standing Balance Ability Good M8 OT- IP Objective Assessments Start: 10/30/18 15:06 Freq: Status: Active Protocol: Document 10/30/18 15:07 [facility] (Rec: 10/30/18 15:44 [facility] [id number]) OT Gross Range of Motion Upper Extremity Range of Motion Assessment Within Functional Limits M9 OT- IP Assessment and Plan Start: 10/30/18 15:06 Freq: Status: Active Protocol: Document 10/31/18 11:52 [facility] (Rec: 10/31/18 12:03 [facility] [email or web address]) OT Summary Assessment and Plan Potential Rehabilitation Potential Excellent Analytic Complexity at Evaluation Low Summary Progress Towards Goals Goals Met Assessment Summary Pt has met all OT goals and to hire assist for IADl needs. Therefore discharge pt from OT services at this time. Frequency of Treatment Frequency Of Treatment Once a Day Discharge Recommendations OT Discharge Recommendations Home with Assistance
--- NOTE | 2018-10-31 12:43 | PC.NURSE ---
Ortho: Still needs cues and reminders at time for log rolling and lami precautions. Was concerned about his bowels this morning. Prunes and prune juice taken and he has had a bm x2 today. Pt has declined to go to a facility. He feels like he will be safe at home and that he has individuals who will help him. No use of pain meds this shift so far. Pt reports he will need several more days at the hospital to make sure he is in working order before he can leave. Cont w/poc.
[2018-10-31 15:00] VITALS: BP 146/76; PULSE 76; RESP 16; TEMP 36.9; O2SAT 97
[2018-10-31] MEDS: ACETAMINOPHEN 325 MG TABLET 650 MG PO (17:00)
[2018-10-31] MEDS: SENNOSIDES 8.6 MG TABLET 17.2 MG PO (20:03)
[2018-10-31] MEDS: hydrOXYzine pamoate 25 MG CAPSULE PO (22:04)
[2018-10-31 23:25] VITALS: BP 134/76; PULSE 61; RESP 20; TEMP 36.2; O2SAT 97
--- NOTE | 2018-11-01 06:56 | PC.NURSE ---
Slept most of the shift, did not C/O pain. Declined pain meds. offered @ 0010. Will cont. POC & monitor.
[2018-11-01 07:25] VITALS: BP 153/78; PULSE 61; RESP 20; TEMP 36.4; O2SAT 99
[2018-11-01] MEDS: ACETAMINOPHEN 325 MG TABLET 650 MG PO ×2 (08:55→14:41)
[2018-11-01] MEDS: DOCUSATE 100 MG CAPSULE PO (08:55)
[2018-11-01] MEDS: MAGNESIUM HYDROXIDE 30 ML UDC PO (08:55)
[2018-11-01] MEDS: AMLODIPINE 5 MG TABLET PO (08:55)
[2018-11-01] MEDS: DEXAMETHASONE 4 MG TABLET PO ×2 (08:55→16:58)
--- NOTE | 2018-11-01 10:12 | P.PN_ITS ---
Subjective Date Patient Seen: 11/01/18 Interval history: Patient seen bedside s/p Lumbar spine S1 screw removal/rep lacement POD #3. Doing well, he has had a BM and his pain is controlled. Ambulating without any assistance in the hallways. He does not have a ride home if he leaves today. Exam Vital Signs (past 8 hours): - 11/01/18 07:25 Temperature 97.5 F L Pulse Rate 61 Respiratory Rate 20 Blood Pressure 153/78 H Pulse Oximetry 99 Oxygen Delivery Method Room Air Oxygen Flow Rate 0 Narrative Exam Narrative: Well-developed, well-nourished, no acute distress. Alert and oriented to person, place, and time. Dressing on lumbar spine is clean, dry, and intact with no signs of drainage. Minimal erythema and generalized swelling around the surgical site. Neurovascularly intact in bilateral lower extremities with soft and compressible calves. Range of motion intact bilateral lower extremities. Objective Labs Result Diagrams: 11/01/18 10:25 Assessment & Plan Post-op Postoperative Procedures Operation Date: 10/29/18 15:15 Actual Procedures Side Surgeon p Lumbar spine S1 screw removal/replacement Lm Rashid MD 1. POD #3 s/p above procedure-doing well, continue PT, pain control. No bending, lifting greater than 5 lbs, no twisting. Dispo-home tomorrow. Follow up in the office in 2 weeks. Quality VTE Deep Vein Thrombosis/Pulmonary Embolism Present on Admission: No
[2018-11-01] MEDS: MULTIVITAMIN 1 TABLET 1 TAB PO (10:36)
[2018-11-01] MEDS: ASCORBIC ACID 500 MG TABLET PO (10:36)
[2018-11-01] MEDS: FERROUS SULFATE 325 MG TABLET PO (10:36)
--- NOTE | 2018-11-01 11:45 | PT.IPTN ---
Current Diagnoses Other idiopathic scoliosis, lumbar region (10/29/18) Other mechanical complication of other internal orthopedic devices, implants and grafts, initial encounter (10/29/18) Surgery Performed Operation Date: 10/29/18 15:15 Actual Procedures p Lumbar spine S1 screw removal/replacement - Lm Rashid MD Physical Therapy Treatment Note M2 PT-IP Current Condition Start: 10/30/18 11:00 Freq: NEEDED Status: Active Protocol: Document 10/30/18 13:45 (Rec: 10/30/18 14:19 [email or web address]) Physical Therapy Current Condition Current Condition Evaluation Date 10/30/18 Treatment Diagnosis L3-S1 hardware removal, exploration and replacement of hardware, weakness Onset Date 10/29/18 Precautions Lumbar Precautions Log Roll No Twisting Limit Bending Lifting Restriction of 10 lbs Gait Belt above Incisional Area Weight Bearing Status Weight Bearing Status Weight Bear as Tolerated M3 PT-IP Subjective Start: 10/30/18 11:00 Freq: NEEDED Status: Active Protocol: Document 11/01/18 11:45 GGD (Rec: 11/01/18 12:15 GGD [id number]) Subjective Physical Therapy Visit Type Type Patient Refusal Notes Pt refused multiple attempts, he states that he just walk and then he is waiting on phone call for D/C plans. Recommendations To Nursing Amount of Assist Needed Standby Assistance Discharge Recommendations PT Discharge Recommendations Home with Assistance
--- NOTE | 2018-11-01 14:35 | PT.IPTN ---
Current Diagnoses Other idiopathic scoliosis, lumbar region (10/29/18) Other mechanical complication of other internal orthopedic devices, implants and grafts, initial encounter (10/29/18) Surgery Performed Operation Date: 10/29/18 15:15 Actual Procedures p Lumbar spine S1 screw removal/replacement - Lm Rashid MD Physical Therapy Treatment Note M2 PT-IP Current Condition Start: 10/30/18 11:00 Freq: NEEDED Status: Active Protocol: Document 10/30/18 13:45 HH (Rec: 10/30/18 14:19 [email or web address]) Physical Therapy Current Condition Current Condition Evaluation Date 10/30/18 Treatment Diagnosis L3-S1 hardware removal, exploration and replacement of hardware, weakness Onset Date 10/29/18 Precautions Lumbar Precautions Log Roll No Twisting Limit Bending Lifting Restriction of 10 lbs Gait Belt above Incisional Area Weight Bearing Status Weight Bearing Status Weight Bear as Tolerated M3 PT-IP Subjective Start: 10/30/18 11:00 Freq: NEEDED Status: Active Protocol: Document 11/01/18 14:35 GGD (Rec: 11/01/18 15:26 GGD [id number]) Subjective Physical Therapy Visit Type Type Treatment Note Visit Start Time 14:20 Visit Stop Time 14:35 Total Visit Minutes 15 Number of PLATE DRYING MACHINE TENDER Visits 2 Physical Therapy Visit Comments Patient Comments Pt states he would like to walk. M4 PT-IP Mobility and Gait Start: 10/30/18 11:00 Freq: NEEDED Status: Active Protocol: Document 11/01/18 14:35 GGD (Rec: 11/01/18 15:26 GGD [id number]) PT-Bed Mobility Assessment Rolling Type of Rolling Log Rolling Roll to Left Level of Assist Standby Assistance Supine to Sit Supine to Sit Standby Assistance Bedrails Scooting Scooting to Edge of Bed Standby Assistance PT-Transfer Assessment Sit to and From Stand Sit to and from Stand Standby Assistance Use of Upper Extremities Equipment Transfer Assistive Device None Gait Belt Orthotic/Prosthetic Devices or Brace: No Transfers Transfer Destination Chair Transfer Ability Level of Assist Contact Guard Assistance Gait Assessment Gait Gait Assistance Required: Contact Guard Assist Distance (Feet) 600 Able to Maintain Weight Bearing Status Yes During Gait Assistive Devices Assistive Device None Gait Belt Orthotic/Prosthetic Devices or Brace: No Gait Deviations General Gait Pattern Decreased Stride Length Decreased Feet Clearance Flexed Trunk Factors Limiting Gait Function Factors Limiting Gait Function Decreased Activity Tolerance Decreased Strength Pain Poor Safety Awareness Comments Gait Comments Pt needed cues for upright posture. Mild unsteadiness with turning head, but no LOB. Stair Climbing Assessment Evaluation Level of Assist On Stairs Contact Guard Assistance Devices Stair Climbing Assistive Devices None Technique/Endurance Stair Climbing Direction Ascend and Descend Stair Climbing Technique Step Over Step Number of Steps Climbed 3 Query Text: Stair Climbing Set # Repetitions (reps) 1 M5 PT-IP Objective Assessments Start: 10/30/18 11:00 Freq: NEEDED Status: Active Protocol: Document 10/30/18 13:45 [facility] (Rec: 10/30/18 14:19 HH [email or web address]) Orientation Orientation/Cognition Level of Alertness Alert Orientation Name Age Birthday Month Date Year Day of Week Place Situation Language Function Ability No Deficits Noted Safety Awareness Decreased Safety Awareness Memory Description No Deficits Noted Gross Range of Motion Upper Extremity ROM Assessment Within Functional Limits Lower Extremity ROM Assessment Within Functional Limits Strength Upper Extremity Strength Assessment Within Functional Limits Lower Extremity Strength Assessment Within Functional Limits Coordination Assessment Gross Coordination Gross Coordination WNL Sensation Assessment Sensation Gross Sensation WNL Light Touch Intact Proprioception (Position) Intact Muscle Tone Muscle Tone WNL Yes M6 PT-IP Treatment Start: 10/30/18 11:00 Freq: NEEDED Status: Active Protocol: Document 10/31/18 10:20 GGD (Rec: 10/31/18 12:00 GGD [id number]) Physical Therapy Treatment Education Education Provided Precautions Safety M7 PT-IP Assessment and Plan Start: 10/30/18 11:00 Freq: NEEDED Status: Active Protocol: Document 11/01/18 14:35 GGD (Rec: 11/01/18 15:26 GGD [id number]) PT Summary Assessment and Plan Summary Assessment Summary Pt improving. He needs cues to slow bed mobility, for full log roll. He did have unsteadiness with gait when he turned his head. He was safe and stable with stair mobility . Pt safe for home D/C when medically stable. Frequency of Treatment Frequency Of Treatment Once a Day Treatment Plan Physical Therapy Treatment Plan Bed Mobility Training Transfer Training Gait Training Therapeutic Exercise Post Op Education Discharge Planning Other Recommendations and Next Treatment bed mobility Focus Recommendations To Nursing Amount of Assist Needed Standby Assistance Discharge Recommendations PT Discharge Recommendations Home with Assistance
[2018-11-01 16:23] VITALS: BP 135/69; PULSE 64; RESP 16; TEMP 37; O2SAT 97
[2018-11-01] MEDS: hydrOXYzine pamoate 25 MG CAPSULE PO (21:23)
[2018-11-01 23:20] VITALS: BP 139/76; PULSE 61; RESP 18; TEMP 36.4; O2SAT 97
[2018-11-02] MEDS: DEXAMETHASONE 4 MG TABLET PO ×2 (00:16→08:17)
--- NOTE | 2018-11-02 00:28 | PC.NURSE ---
Patient is alert and oriented. Breath sounds CTA with RA sat of 96%. HRR. Denies nausea. BT present and abdomen is soft; had loose stools on day shift but reports none since. Denies dysuria, frequency or urgency and is getting up independently. Dressing to back is CDI. CMS intact although states his right leg has intermittent cold sensation although leg is warm to touch. Denies pain. Refusing SCD's. Fall risk score is low.
[2018-11-02] MEDS: ASCORBIC ACID 500 MG TABLET PO (08:16)
[2018-11-02] MEDS: MULTIVITAMIN 1 TABLET 1 TAB PO (08:16)
[2018-11-02] MEDS: AMLODIPINE 5 MG TABLET PO (08:16)
[2018-11-02] MEDS: FERROUS SULFATE 325 MG TABLET PO (08:16)
[2018-11-02] MEDS: ACETAMINOPHEN 325 MG TABLET 650 MG PO ×2 (08:17→13:45)
--- NOTE | 2018-11-02 09:07 | CM.DPC ---
Addendum entered by Lyric Gonzalez LPN 11/02/18 09:22: AB#2: presented: pt says I know all about that, I already signed it once and do not want to sign it again. Is noted on the document and left for [facility] to scan as per weekend protocol. Original Note: DCP: continued: Case received 10/31 and have met daily with pt and with ortho PA team re d/c plan. Pt with initial plan for [facility] before home to [facility]. Checked in with him on 10/31 and he stated that he had no intention of going to a snf setting. He wished to return to his home with any extra help in the home to be organized by him. Iram Mcmahon saw him yesterday and discussed plan for a d/c today. Checked in with pt and he was on the phone arranging his ride. He will need Priority Board for an afternoon ferry (approx 3:30) and anticipates leaving at 1400. Will follow prn/ [employer] can set up the priority board. [facility] was updated to release the referral.
--- NOTE | 2018-11-02 11:22 | P.PN_ITS ---
Subjective Date Patient Seen: 11/02/18 Time Patient Seen: 11:20 Interval history: Patient is status post revision lumbar surgery. Patient doing well and ambulating without any difficulties. Still feeling some sensory changes to the lateral aspect of his right leg. But the majority of his preoperative pain has improved significantly. Exam Vital Signs (past 8 hours): Oxygen Delivery Method Room Air Oxygen Flow Rate 0 Narrative Exam Narrative: On physical exam, patient is alert and ordered x3. No apparent distress. Positive dorsiflexion and plantar flexion. Palpable pedal pulses. Brisk cap refill. Dressing is clean, dry, intact. 5/5 strength in dorsiflexion and plantar flexion. Nontender to palpation to posterior calves b ilaterally. Objective Labs Result Diagrams: 11/01/18 10:25 Assessment & Plan Post-op Postoperative Procedures Operation Date: 10/29/18 15:15 Actual Procedures Side Surgeon p Lumbar spine S1 screw removal/replacement Lm Rashid MD Postoperative day: 4 Postoperative status: doing well Postoperative plan: see orders and discharge Postoperative plan narrative: Patient doing very well after surgery to his lumbar spine. Patient is ready to be discharged home today. Time Spent With Patient 15-24 minutes Quality VTE Deep Vein Thrombosis/Pulmonary Embolism Present on Admission: No
[2018-11-02 11:40] VITALS: BP 133/74; PULSE 78; RESP 20; TEMP 37.3; O2SAT 98
--- NOTE | 2018-11-02 13:41 | PC.NURSE ---
Day shift: Pt going back home to [place] today. Paperwork signed and all questions answered. Pt has scrips and all personal belongings. New dressing in place. Op-site well approximated andnos/s of infection. Pt also took a shower today. He did not want his lunch.
--- NOTE | 2018-11-07 11:56 | PM.DS.1 ---
History of Present Illness Date Patient Seen: 11/02/18 Chief complaint: [id number] Narrative: Patient is seen bedside by Dr. Vegas status post L3-S1 posterior segmental hardware removal, L3-S1 posterior segmental instrumentation, and L5-S1 posterolateral fusion on 10/29/[address] Rashid. Please refer to the progress note from 11/02/[address] Vegas. Discharge Providers Date of admission: 10/29/18 08:47 Discharge Date: 11/07/18 Primary care physician: Syd Crowe Consults: 10/29/18 12:16 Consult to Dietitian, Adult Routine Comment: Reason For Exam: has lost 15# in the past several wks -stomach flu Consult to Wage And Salary Administrator Routine Comment: 10/29/18 18:32 Consult to Occupational Therapy Evaluate & Treat Comment: Physician Instructions: Evaluate and treat Consult to Physical Therapy Evaluate & Treat Comment: Physician Instructions: Evaluate and Treat Discharge provider: Salome Calero PA-C Summary Discharge Diagnosis: 1. Lumbar hardware breakage post surgery 2. History of lumbar fusion Hospital Course: Patient was admitted to the hospital s/p L3-S1 posterior segmental hardware removal, L3-S1 posterior segmental instrumentation, and L5-S1 posterolateral fusion on 10/29/[address] Rashid. Patient tolerated the procedure well with no major complications. They were transferred to the acute care floor where they were placed on the standard lumbar fusion post-operative pathway and protocol. They were seen by physical therapy who recommended that they be discharged home. They were stable and ready for discharge on 11/02/18. Exam Vital Signs (past 8 hours): Oxygen Delivery Method Room Air Oxygen Flow Rate 0 Narrative Exam Narrative: Please see examination from progress note dated 11/02/[address] Vegas Objective Labs Result Diagrams: 11/01/18 10:25 Discharge Plan Discharge Plan Patient Disposition: Home Discharge comment: Discharge home today Discharge Med Rec/Prescriptions Prescriptions: New hydroxyzine HCl 25 mg tablet 25 mg PO QID PRN (Reason: muscle spasm) Qty: 60 RF: 0 oxycodone 5 mg tablet 5 mg PO Q4-6H PRN (Reason: pain) Qty: 40 RF: 0 sennosides [senna] 8.6 mg Tablet 17.2 mg PO BEDTIME Qty: 0 RF: 0 Continued amlodipine [Norvasc] 5 MG tablet 5 mg PO QDAY Qty: 30 RF: 3 acetaminophen 325 mg Tablet 650 mg PO Q6HR PRN (Reason: Pain, Mild (1-3)) Qty: 0 RF: 0 docusate sodium 100 mg Capsule 100 mg PO BID Qty: 0 RF: 0 hydroxyzine HCl 25 mg tablet 25 mg PO QID PRN (Reason: muscle spasm) Qty: 60 RF: 0 Discontinued oxycodone 5 mg Tablet 5 mg PO Q4-6H PRN (Reason: pain) Qty: 40 RF: 0 Follow up/Referrals: Lm Rashid MD [Physician] - (Follow up on 11/10/[address] Rashid at the [place] office.) Provider Discharge Instructions Diet: Diet as Tolerated Activity: Weightbearing as tolerated, no bending, lifting greater than 5 lbs, or twisting. Cold/Heat Therapy: Apply ice to affected area for 20 minutes at a time at least hourly while awake. Skin/Wound/Dressing Care Report to your healthcare provider any signs of infection, such as:: chills, fever, night sweats, increased pain, unusual drainage and unusual redness Dressing: Keep dressing clean, dry, and intact. May shower with it in place but no soaking. Visit Report/Discharge Packet Instructions: DI for Constipation, Stool Softeners, Hydroxyzine, DI for Transforaminal Lumbar Interbody Fusion Stand Alone Forms: Surgery Discharge Discharge Data Primary Care Provider: Syd Crowe Attending Provider: Lm Rashid Admit Date/Time: 10/29/18 08:47 Discharges patient from system. Discharge Date/Time: 11/02/18 14:02 Quality VTE Deep Vein Thrombosis/Pulmonary Embolism Present on Admission: No
== END 2018-11-02 14:02 | disposition home or self-care (01) | DRG 460 ==
PROVIDERS: Physician Assistant; Admitting Provider Orthopaedic Surgery Orthopaedic Surgery of the Spine; PCP Family Medicine; Visit Provider Orthopaedic Surgery Orthopaedic Surgery of the Spine
PROC: 0SG3071 Fusion of Lumbosacral Joint with Autologous Tissue Substitute, Posterior Approach, Posterior Column, Open Approach (ICD-10-PCS; principal; 2018-10-29 15:15)
DX: T84.018A Broken internal joint prosthesis, other site, initial encounter (principal); M96.0 Pseudarthrosis after fusion or arthrodesis; M41.26 Other idiopathic scoliosis, lumbar region; M48.061 Spinal stenosis, lumbar region without neurogenic claudication; I10 Essential (primary) hypertension
CPT/HCPCS: 36415; 72100; 76000; 82962; 85014; 85018; 93005; 97116; 97161; 97165; 97530; 97535; C1776; C9290; J0690; J1100; J1170; J2405; J2704; J3010

== ENCOUNTER → 2018-12-11 11:51 | Outpatient (CLI) | payer MEDICARE, OTHER, SELFPAY ==
[2018-10-29 11:24] VITALS: BMI 26.9
--- NOTE | 2018-12-11 | DI.CT.S_ITS ---
PROCEDURE: CT LUMBAR SPINE WO CON INDICATIONS: LOW BACK PAIN TECHNIQUE: Noncontrast 3 mm thick sections acquired from the T12 level to the sacrum. Sagittal and coronal reformats were constructed. For radiation dose reduction, the following was used: automated exposure control. COMPARISON: [facility], CR, XR LUMBAR SPINE 2-3V, 10/29/2018, 15:19. [facility] [place], CR, XR LUMBAR SPINE 2 OR 3 VIEWS, 10/20/2018, 11:36. [facility] [place], CR, XR LUMBAR SPINE 2 OR 3 VIEWS, 12/11/2018, 10:59. [facility], CT, CT LUMBAR SPINE WO CON, 06/24/2018, 12:16. FINDINGS: Image quality: Excellent. Bones: No acute fracture noted. No focal osseous destruction is seen. There is diffuse osteopenia. Postsurgical changes related to L3-S1 posterior paraspinal adiel fixation with pedicle screws and paraspinal rods. There are interbody cage grafts at L3-L4 and L4-L5. The right L5 pedicle screw has been removed. Prior screw tracks also noted at the S1 level. [id number] disc height loss elsewhere in the lumbar spine. There is expected postoperative alignment. No evidence of hardware failure or loosening. Grade 1 anterolisthesis of L5 on S1. Status post posterior decompression at L4-L5. There is scoliosis, with marked dextrocurvature of the lower thoracic and upper lumbar spine. T12-L1: No bony canal stenosis. Severe left foraminal narrowing, unchanged. Mild right foraminal stenosis as before L1-L2: No high-grade bony canal stenosis. Mild to moderate left and mild right bony foraminal narrowing. No interval change L2-L3: No definite bony canal stenosis. However probable moderate canal narrowing. No left foraminal narrowing. No definite right foraminal stenosis. L3-L4: Minimal bony canal narrowing. No left bony foraminal stenosis. Moderate right bony foraminal narrowing with mild compression of the nerve root within the cephalocaudad axis. This appears unchanged. L4-L5: No definite bony canal stenosis. Intraspinal contents partially obscured by streak artifact from hardware at this level. No left or right bony foraminal narrowing L5-S1: No high-grade residual bony canal stenosis. Moderate left and right bony foraminal narrowing with associated mild nerve root compression in the cephalocaudad dimension Soft tissues: No retroperitoneal masses or hematomas. Visualized aorta is normal in caliber. Colonic diverticulosis is seen without evidence of acute complication. IMPRESSION: Postsurgical changes as above from L3-S1. Hardware appears intact. No evidence of loosening. Unchanged bilateral diffuse foraminal stenoses as above. Moderate L2-L3 canal stenosis. Scoliosis as before. No acute fracture seen. Dictated by: Sergio Figueroa M.D. on 12/11/2018 at 12:42 Approved by: Sergio Figueroa M.D. on 12/11/2018 at 12:56
== END ==
PROVIDERS: PCP Family Medicine; Visit Provider Orthopaedic Surgery Orthopaedic Surgery of the Spine
DX: M54.5 Low back pain (principal); M48.061 Spinal stenosis, lumbar region without neurogenic claudication; M41.9 Scoliosis, unspecified; Z98.1 Arthrodesis status
CPT/HCPCS: 72131

== ENCOUNTER 2019-06-10 09:01 | Observation (INO) | payer MEDICARE, OTHER, SELFPAY ==
[2018-10-29 11:24] VITALS: BMI 26.9
[2019-05-26 08:26] VITALS: BMI 26.4
[2019-06-09] VITALS (18 sets, daily range): BP systolic 127–173; BP diastolic 62–98; PULSE 63–101; RESP 11–16; TEMP 36.2–37; O2SAT 92–98; BMI 25.2
--- NOTE | 2019-06-09 06:00 | DI.RAD.S_ITS ---
PROCEDURE: XR KNEE LT 1TO2V INDICATIONS: total left knee TECHNIQUE: 2 view(s) of the knee acquired. COMPARISON: [facility] SHARI [facility], XR KNEE ARTHRITIC SERIES , 01/14/2019, 11:38. FINDINGS: Bones: Patient is status post knee joint arthroplasty. Hardware components are in expected positions. Visualized bony structures are intact. Soft tissues: Overlying postoperative changes are noted. IMPRESSION: Left knee arthroplasty with prosthesis in anatomic alignment. Dictated by: Fawn Castro M.D. on 06/09/2019 at 18:05 Approved by: Fawn Castro M.D. on 06/09/2019 at 18:06
[2019-06-09] MEDS: ACETAMINOPHEN 325 MG TABLET 975 MG PO (09:17)
[2019-06-09] MEDS: PREGABALIN 75 MG CAPSULE PO (09:17)
[2019-06-09] MEDS: LACTATED RINGERS 1,000 ML 42 ML IV ×2 (09:19→12:33)
--- NOTE | 2019-06-09 10:13 | PM.PREOP ---
Pre-operative Note Interval Note History & Physical reviewed/Exam performed by Physician: Yes Changes to H&P: Yes H&P completed within 30 days and has changed as indicated here:: Reports recent sinus drainage and a feeling that he hasn't adequately cleaned out his colon.
--- NOTE | 2019-06-09 10:30 | PM.OP.1 ---
Operative Date/Time/Diagnoses Date of procedure: 06/09/19 Time of procedure: 12:50 Pre-op diagnosis: Left knee osteoarthritis Post-op diagnosis: same Procedure & Clinicians Procedure: Left total knee replacement Same procedure as scheduled: Yes Indications: The patient has had progressively worsening left knee pain with radiographic changes consistent with arthritis. Non-operative management has failed and the patient has requested total knee replacement. The risks, benefits and alternatives to surgery were discussed with the patient prior to proceeding. Risks discussed included, but were not limited to, failure to relieve pain, stiffness, infection, nerve damage, deep venous thrombosis, pulmonary embolism, stroke, coma, heart attack, permanent paralysis and , as well as the potential need for eventual revision of the prosthetic. Surgeon: Adelso Morataya Cloth Grader: Lucrecia Kim Click Yes if Unassisted: No Anesthesia Type: General and Local Operative Notes Findings: Significant medial and moderate patellofemoral osteoarthritis. Closure Type: primary Specimen(s): none sent Prosthetic devices, grafts, tissues, transplants, or devices: Implants used in this procedure were manufactured by the [employer] and included the BCS II Journey total knee replacement with a size 7 cobalt chromium femoral component, a size 7 non porous tibial base plate with a 9 mm cross-linked tibial insert, and a 38 mm oval Arielle II patellar component. Applied: implant(s) Estimated Blood Loss (mL): 25 Blood products transfused: none Tourniquet time (min): 55 Procedure in detail: The patient was seen in the pre-operative area, where the left knee was identified as the operative site and this was marked with my initials. The patient received pre-operative antibiotics, and was taken to the operating room and placed on the operative table in the supine position. After satisfactory anesthesia, a multimedia services coordinator out? was performed. The left leg was encircled with a tourniquet about the proximal thigh, and the leg was prepared from the toes to the tourniquet with ChloroPrep in the usual fashion and draped through sterile drapes. The leg was elevated and exsanguinated with Eschmark bandage and the tourniquet inflated to 250 mmHg pressure. The knee was approached through an approximately 18 cm incision centered over the patella and carried into the knee through a medial parapatellar arthrotomy. The anterior osteophytes and soft tissues were removed. The rotational landmarks of Celina's line and the transepicondylar axis were marked on the femur with electrocautery, and intramedullary guide holes for the femur and tibia were created. The distal femoral cut was made in 6 degrees of valgus using the intramedullary guide at the +2 cut setting due to a flexion contracture. The proximal tibial cut was then made using the intramedullary guide, taking 9 mm of bone off the less involved side. The extension gap was checked and the rotation of the femoral component confirmed with the gap balancing blocks. The anterior, posterior and chamfer cuts were then made. The posterior osteophytes and soft tissues were then removed. The posterior capsule was injected with part of a mixture of 60 ml 0.25% Marcaine mixed with 20 ml Exparel and 4 mg of morphine for post-operative pain control. The remainder of this mixture was injected into the capsule and subcutaneous tissues during cement curing. The tibia was prepared with the rotation set by an extra medullary guide. Trial tibial and femoral components were then placed and the intercondylar notch cut through the femoral trial. Range of motion was 0-140 degrees, with good stability throughout the range. The patella was then cut to accommodate the patellar prosthetic. There was no need for a lateral release. The trials were then removed, and the femoral hole plugged with a bone plug. The bone was prepared with pulsatile lavage, and dried with a sponge. Cement was applied and the final prosthetics placed. Excess cement was removed during and after cement curing. After confirming there was no extruded cement posteriorly, the final tibial insert was placed. The knee was copiously irrigated and the tourniquet deflated. Hemostasis was obtained. The capsule was closed with interrupted # 2 polyester sutures. The subcutaneous layer was closed with 3-0 Vicryl, and the skin with a running 3-0 V-Lock suture and SteriStrips. An Aquacel Ag dressing was applied and the patient was taken to recovery having tolerated the procedure well. Complications: none Post-operative Condition: stable Disposition: PACU Plan for aftercare: The patient will be maintained on a standard total knee replacement protocol with weight bearing as tolerated. The patient will receive aspirin and sequential compression devices for DVT prophylaxis. The patient will be discharged home when safe for the home environment.
[2019-06-09] MEDS: CEFAZOLIN 2 GM/100 ML FROZ.PIGGY IV (11:12)
[2019-06-09] MEDS: TRANEXAMIC ACID 1,000 MG VIAL 1000 MG INJ (11:25)
--- NOTE | 2019-06-09 11:43 | SUR.OPER ---
Supine on padded OR bed. Pillow under head, arms secured on padded armboards <90 degree abduction. Safety belt across torso. Non-operative leg secured with tape over blanket over lower leg. Operative leg secured in [place]o/[place] positioner. Foam padded brace at thigh of operative leg.
[2019-06-09] MEDS: BUPIVACAINE 0.25% W/ EPI 30 ML VIAL 60 ML INJ (11:50)
[2019-06-09] MEDS: MORPHINE 4 MG/ML INJ INJ (11:50)
[2019-06-09] MEDS: BUPIVACAINE LIPOSOME 266 MG/20 ML VIAL INJ (11:50)
[2019-06-09] MEDS: HYDROMORPHONE 2 MG INJ 0.5 MG IV ×4 (13:10→13:30)
--- NOTE | 2019-06-09 13:28 | SUR.PHASEI ---
pt arrived to PACU and spinal is already worn off. Pt complaining of pain and pt being medicated with dilaudid. Pt is jovial though and cooperative. Dr. Wyatt aware of spinal not working.
[2019-06-09] MEDS: OXYCODONE/ACETAMINOPHEN 5/325 TABLET 1 TAB PO ×4 (13:32→21:43)
[2019-06-09] MEDS: fentaNYL 100 MCG/2 ML INJ 50 MCG IV ×2 (13:33→13:42)
[2019-06-09] MEDS: LORazepam 2 MG/ML INJ 0.25 MG IV ×2 (13:40→13:59)
--- NOTE | 2019-06-09 14:56 | PC.NURSE ---
Pt just to room at 225- He is comfortable and in bed. Per business management intern Pts spinal did not take. He was medicated down in recovery and seems to be comfortable at this time. Dressing to l.leg cdi with velia wrap in place. Pt will be on ivf. He is watching television at this time. Urinal at bedside and resting comfortably. Report given to Nathalie GAGNON.
[2019-06-09] MEDS: LACTATED RINGERS 1,000 ML 125 ML IV ×2 (16:01→21:52)
--- NOTE | 2019-06-09 17:56 | PT-IP ANOTE ---
Pt refused to get up with PT noting it was not a good time. Pt was eating and noted pain was too high. Pt encouraged to call to nursing to get up later and to do APs and quad sets in bed as tolerated.
--- NOTE | 2019-06-09 19:26 | PC.NURSE ---
Evening note: Jong resting in bed, oriented x 3, very talkative with staff. VS stable, BP slightly hypertensive, rates LLE pain 7/10, medicated with one percocet. Denies nausea, c/o gas pain, asking me to palpate his abdomen near umbilicus saying it is hard as a rock. Abdomen soft, slightly distended. Incontinent of urine on all linens, only able to void additional 25 ml clear yellow urine via urinal. Bladder scan = 539 ml. Post-scan we assisted him to stand at bedside, voided 60 ml clear yellow urine. Assisted onto BSC per his request to sit here so I can move some gas. Able to pass large amt of flatus on commode and voided small amt of urine. Patient requests to be given more time to void, requesting to avoid catheter at this time. Plan is to have him stand at bedside at 2100 to attempt to void.
[2019-06-09] MEDS: ACETAMINOPHEN 325 MG TABLET 650 MG PO (21:42)
[2019-06-09] MEDS: ASPIRIN EC 81 MG TABLET PO (21:42)
[2019-06-09] MEDS: DOCUSATE 100 MG CAPSULE PO (21:43)
[2019-06-10] VITALS (9 sets, daily range): BP systolic 129–170; BP diastolic 67–89; PULSE 81–97; RESP 13–18; TEMP 36.7–38.1; O2SAT 95–98
[2019-06-10] MEDS: OXYCODONE/ACETAMINOPHEN 5/325 TABLET 1 TAB PO ×2 (02:06→05:32)
[2019-06-10 05:59] LABS: Hematocrit 36.4 % (41-53); Hemoglobin 12.4 g/dL (13.5-17.5)
[2019-06-10] MEDS: LACTATED RINGERS 1,000 ML 125 ML IV (06:17)
--- NOTE | 2019-06-10 06:24 | P.PN_ITS ---
Subjective Subjective Date Patient Seen: 06/10/19 Time Patient Seen: 06:24 Interval history: The patient reports poor pain control when attempting to move. He states he had no intention of going home any time soon, in part because of not having anyone at home to help him. Exam Vital Signs (past 8 hours): - 06/09/19 23:51 06/10/19 04:30 Temperature 98.1 F 98.0 F Pulse Rate 89 84 Respiratory Rate 16 18 Blood Pressure 150/88 H 130/69 Pulse Oximetry 96 95 Oxygen Delivery Method Room Air Narrative Exam Narrative: Left knee wound is dressed with no drainage on the bandage. Calf is soft. Light touch and motion are intact in the left lower extremity. When entering the room the patient has a pillow doubled up under his knee. This was corrected to be under his calf and ankle. Objective Labs Result Diagrams: 06/10/19 05:40 Labs: Laboratory Results - last 24 hr 06/10/19 05:40 Hgb 12.4 L Hct 36.4 L Assessment & Plan Post-op Postoperative Procedures: Procedures Operation Date: 06/09/19 10:45 Actual Procedures Side Surgeon p Total Knee Arthroplasty Left Adelso Morataya MD Postoperative day: 1 Postoperative status: doing well, marginal pain control and anemia Postoperative status narrative: The patient has had marginal pain control but otherwise is stable postoperative day 1 after a left total knee replacement. He does have a mild post hemorrhagic anemia. Postoperative plan: routine post-op care and ambulate Postoperative plan narrative: We will start with physical therapy for him today. He does live alone and will require a fair degree of independence before disc harge. It is possible he will require prison facility if he does not make adequate progress with physical therapy. Discharge will be either tomorrow or the following day depending on progress with therapy. Time Spent With Patient Time with patient: less than 15 minutes Quality VTE Deep Vein Thrombosis/Pulmonary Embolism Present on Admission: No
--- NOTE | 2019-06-10 06:52 | PC.NURSE ---
Pain level down to 4 after medicated with 1 tab. Percocet per Epidural orders. Dr. Morataya here to see patient, he did not sleep well last night. Reported I'm a light sleeper, I woke up with just a little noise @ home. C/O IV pump making too much noise. Denies STOLL, nausea, no tremors &hallucination noted. Will cont. POC & monitor.
[2019-06-10] MEDS: DOCUSATE 100 MG CAPSULE PO ×2 (08:42→21:47)
[2019-06-10] MEDS: ASPIRIN EC 81 MG TABLET PO ×2 (08:43→21:47)
[2019-06-10] MEDS: AMLODIPINE 5 MG TABLET 7.5 MG PO (08:45)
[2019-06-10] MEDS: MELOXICAM 7.5 MG TABLET 15 MG PO (08:45)
[2019-06-10] MEDS: CHLORTHALIDONE 25 MG TABLET PO (08:45)
--- NOTE | 2019-06-10 09:31 | PC.NURSE ---
Addendum entered by Clarisse Reid R.N. 06/10/19 13:42: Pt on his light asking for temperture to be check, states that he feels warm. Temperature 98.2. CIWA score 0. Pt is doing well and moving well when he is going to the bathroom with the walker but does not want to work with Physical Therapy. He does not really want to hear what staff has to say and he is on [facility] [place] for his [place] surgery. Pt states that he wants to stay here until around saturday. Given tylenol to help prevent temperature and explained to pt again the benefits of physical therapy and he states that it hurts worse to walk. He is not interested in getting up and moving around at this time. Addendum entered by Clarisse Reid R.N. 06/10/19 11:59: Pt states: I am not going to get up with physical therapy today, my knee is swollen and it hurts to much. Encouraged pt to get up when they come in, explained that he needs to get up and walk around with walker instead of staying in bed all day. Pt is on church path and his plan is to go back home to [facility]. He does not want to be compliant with recommendations from nursing, and physical therapy. Pt has some etoh abuse, he drinks daily and is on CIWA scale. His score is 0 this morning. Given 10mg of oxycodone and pt is able to rest. He states that he is napping as he did not sleep at all last night. Original Note: Assess- Pt is A&Ox3. He denies pain or discomfort at this time. L pedal pulse strong and cms wnl. Dressing with aquacel and acewrap. Pt will be working with Physical Therapy soon. Patient is talking on the phone now.
[2019-06-10] MEDS: OXYCODONE IR 10 MG TABLET PO ×3 (09:52→21:52)
--- NOTE | 2019-06-10 12:29 | CM.DANOTE ---
Addendum entered by Farnaz Velasquez 06/10/19 15:15: Current therapy recommendation is home with supportive family. BERNARD Original Note: DCP/Assessment: Reviewed chart. Patient is a 79yr male admitted to [facility] status switched to OBS status. Primary payor is 1)Medicare 2)[employer]. PCP listed is Jasson Crowe. Met with patient explained CM/SW role. Patient alert and oriented, resting in bed comfortably this AM. Patient with therapy evaluation pending. Patient reports that he hopes to remain hospitalized for a few more days. Patient indicates that he lives alone and does not have much support. Patient resides on [facility]. Patient notified that his LOS is determined by medical necessity not lack of support. Patient reports that his friend will be picking him up at time of d/c. Patient reports that his friend is not planning to pick him up before 06-12? Therapy evaluation pending. Patient uses walker/cane at baseline and drives. Patient reports that he drinks rum every other day. Notified patient that if he started to feel uncomfortable related to ETOH withdrawals to let RN know. Patient does not anticipate any issues with detox. He has been hospitalized in October 2018 and did not have any issues. Patient expresses no desire to stop drinking. Patient reports that his friend will need priority boarding to return to [place]. D/C date unknown at this time. Patient aware that he might be discharged prior to Saturday pending progress. Patient reports that he plans to do outpatient physical therapy. P: Pending. Patient aware that he is OBS status. Anticipate home when stable. DANICA Galvin Discharge Planning/Care Management Discharge Assessment Start: 06/10/19 12:21 Freq: Status: Active Protocol: Document 06/10/19 12:24 BERNARD (Rec: 06/10/19 12:29 BERNARD [id number]) Discharge Planning Assessment Assigned Machining Supervisor DANICA Galvin Contact Information Daxa Perry (daughter) [phone] Advance Directives? No Advance Directives on File Yes History Provided By Patient,Medical Record Prior Living Arrangements House Household Members none Type of transporation used prior to Drives own vehicle admit Independent with ADL's Yes Is patient alert and oriented? Yes Caregiver for Another No DME Already Rented / Owned FWW / Walker,Cane Patient/Family Preference Residential Facility,OP PT Therapy Comment Therapy evaluation pending. Patient resides alone on [facility]. Has some resistance to discharging too early? Patient is ROCHA path in OBS status. Discharge Plan Home Transportation Arrangement Friend(s) to provide to transport. Additional Comment Pending rehabilitation recommendation Whiteboard Updated in Patient Room with Yes name and ext. # of Machining Supervisor Review Status In Process Next Review Type Continued Stay Review Pre-Anesthesia Assessment Start: 05/26/19 08:26 Freq: Status: Active Protocol: Document 05/26/19 08:[address] [facility] (Rec: 05/26/19 09:[address] [facility] [id number]) Pre-Anesthesia Assessment Patient Also Known As (MANI) MARILEE Patient Information Reviewed Via Phone Assessment Diagnostic Results Electrolytes Comment Outside labs/EKG scanned to record Primary Care Provider Syd Crowe Seen Specialist in Last 12 Months Yes Specialist Seen Orthopedist Primary Language Upper Sorbian Preferred Language Upper Sorbian Height 180.34 cm Weight 86.183 kg Body Mass Index (BMI) 26.4 Hearing Ability Normal Visual Assist Glasses Dentition Type Teeth, Natural Present Barriers to Learning None Other Aids No Hx Anesthesia Reactions No Hx Family Anesthesia Reaction No Hx Malignant Hyperthermia No Hx Blood Transfusions Yes: Childhood, pt does not recall reason for transfusion Hx Blood Transfusion Reaction No Anesthesia Review Requested No Campground Hand Yes: No one available to assist with care at [place] alcohol intake current alcohol intake frequency 3 or more drinks per day Alcohol Intake Frequency Other: Easily drink a bottle a night Smoking Status Former smoker Tobacco type pipe how long ago did patient quit smoking Smoked occasionally in college Substance Use Type marijuana Comment Advised not to smoke marijuana 24 hours prior Pain Present Pain Reported Musculoskeletal Symptoms Abnormal Gait,Back Pain, Difficulty Walking,Joint Pain, Muscle Cramps,Muscle Weakness, Post op Pain,Radiating Pain into Limb History of Falling (Recent or History of No ) Patient is completely paralyzed or No completely immobile Mental Status Oriented to own ability Is patient on oxygen? No Does patient have MAJANO/SOB No Hx Sleep Apnea No Currently Taking a Beta Velasquez No Can You Climb a Flight of Stairs Without Yes SOB Hx Chest Pain No Hx SOB No Hx Syncope or Dizziness No Anti-Coagulant Therapy No Has a Records Custodian No Cardiac Testing No Hx Pacemaker/ICD No Pacemaker Rep Required? No Cardiac Clearance Received Not Applicable Diet Type At Home Regular dysphagia Yes: Due phlegm build-up recently Bladder Pattern Frequency,Nocturia,Urgency Urinary Catheter Present No Hx Urinary Self Catheterization No Diabetes No: Unknown if prior A1c to confirm diabetes HgbA1C 6.8 Date 05/01/19 Hx Drug Resistant Organism No Presence of External or Internal Medical No Devices Have you traveled outside the [facility] States in the last 30 days? Marital Status Lives With none Prior Living Arrangements House Number of Floors (Floors) Two Floors Support System None Does the Patient Have Assistance After No Surgery Patient Discharge Plan Description Return Home Comment Lives on [facility]. Pt not advised length of stay per surgeon Feels Safe in Current Environment Yes Been Physically Hurt or Threatened By a No Person in Current Environment Do you have thoughts of harming yourself None or others? Are you currently considering suicide? No Do you have a plan to hurt yourself or No Plan others? Do You Have Any Spiritual Beliefs That No May Affect Your HC Choices? Do You Have Any Cultural Practices That No May Affect Your HC Choices? Who Can We Speak to About Patient's Care Family, friends Identifying Code for Release of Patient Declines to issue Information Health Care Proxy/Next of Kin Mayur Wood (friend) Health Care Proxy Phone Number Pt to update dos Emergency Contact Name Daxa (daughter) Dimas HutchinsonCarolyne ( friend) Emergency Contact Phone Number Daxa [phone] Dimas: Advance Directives? Yes Advance Directives on File Yes Power of Block Paver Yes Power of Block Paver Name Mayur Jessie Power of Block Paver Phone Number Pt to update dos PAC Instructions Durable medical equipment, Medications to take/avoid, Nasal antibiotic,No ETOH/ petroleum product on skin DOS, NPO,Post-op transportation,Pre -surgical wash,Sturdy shoes/ comfortable clothes,Do not bring valuables and remove jewelry
[2019-06-10] MEDS: ACETAMINOPHEN 325 MG TABLET 650 MG PO ×2 (13:13→19:04)
--- NOTE | 2019-06-10 13:40 | PT.IIE ---
Current Diagnoses Unilateral primary osteoarthritis, left knee (06/09/19) Surgery Performed Operation Date: 06/09/19 10:45 Actual Procedures p Total Knee Arthroplasty(Left) - Adelso Morataya MD Surgical History (Last Updated 05/26/19 @ 08:34 by Елена Ireland RN) History of fusion of lumbar spine (Acute 10/10/18) History of lumbar fusion (Acute ~2006) History of lumbar spinal fusion (Acute 10/29/18) Hx of hernia repair (Acute) Hx of shoulder surgery (Acute ~2004) Hx of tonsillectomy (Acute) Medical History (Last Reviewed 10/24/18 @ 04:56 by Denise Garcia MD) Anxiety (Acute ~2001) Arrhythmia (Acute) Arthritis (Acute) Chest pain (Acute) Chronic low back pain (Acute) Depression (Acute ~2001) Diverticulitis (Acute) Diverticulosis (Acute) Fragile skin (Acute) Hip pain, bilateral (Acute) HTN (hypertension) (Acute) Hyperlipidemia (Acute) Knee pain, bilateral (Acute) LBBB (left bundle branch block) (Acute) Neck pain (Acute) Pneumonia (Acute) Post-nasal drip (Acute) PVC's (premature ventricular contractions) (Acute) Scarring (Acute) Thoracogenic scoliosis, thoracolumbar region (Acute) Physical Therapy Inpatient Evaluation/Re-Eval M1 PT/OT-IP Prior Functional Status Start: 06/10/19 08:31 Freq: NEEDED Status: Active Protocol: Document 06/10/19 13:40 AB (Rec: 06/10/19 17:14 AB [id number]) Medical Review Prior Functional Status Medical History Reviewed Yes Communication able to make needs known Mobility and Gait stated that he is modified independent with all mobilities and ambulation without AD. also stated that he is still recovering from his recent back surgery Social History Household Members none Living Arrangements House Number of Floors (Floors) Two Floors Number of Stairs To Enter/Railing? pt stays on the main level of his house has 5 steps to enter with L rail ascending Home Environment Standard Height Toilet,Walk in Shower Home Equipment Front Wheel Walker,Straight Cane,Hand Held Shower M2 PT-IP Current Condition Start: 06/10/19 08:31 Freq: NEEDED Status: Active Protocol: Document 06/10/19 13:40 AB (Rec: 06/10/19 17:14 [id number]) Physical Therapy Current Condition Current Condition Evaluation Date 06/10/19 Treatment Diagnosis s/p L TKA; difficulty in walking Onset Date 06/09/19 Weight Bearing Status Weight Bearing Status Weight Bear as Tolerated M3 PT-IP Subjective Start: 06/10/19 08:31 Freq: NEEDED Status: Active Protocol: Document 06/10/19 13:40 AB (Rec: 06/10/19 17:14 [id number]) Subjective Physical Therapy Visit Type Type Initial Evaluation Visit Start Time 13:40 Visit Stop Time 14:22 Total Visit Minutes 42 Number of TREATING INSPECTOR Visits 0 Physical Therapy Visit Comments Patient Comments pt initially refusing PT but agreed to get up afterwards Therapy Pain Assessment Pain When Pain Assessed At Rest Pain Present Pain Present Pain Reported Location Left Knee Intensity 4 Scale Used Numeric (1 - 10) Pain Management Techniques Apply Cold,Timing of Activity with Medications M4 PT-IP Mobility and Gait Start: 06/10/19 08:31 Freq: NEEDED Status: Active Protocol: Document 06/10/19 13:40 AB (Rec: 06/10/19 17:14 [id number]) PT-Bed Mobility Assessment Supine to Sit Supine to Sit Standby Assistance Sit to Supine Sit to Supine Standby Assistance PT-Transfer Assessment Sit to and From Stand Sit to and from Stand Contact Guard Assistance,1 Person Assistance,Use of Upper Extremities Equipment Transfer Assistive Device Gait Belt,Front Wheeled Walker Orthotic/Prosthetic Devices or Brace: No Transfers Transfer Destination Toilet Transfer Technique pt ambulated using FWW Transfer Ability Level of Assist Contact Guard Assistance Comments Mobility Comments pt completed supine to sit SBA . completed sit to stand from EOB CGA and ambulated to the toilet using FWW CGA. pt was able to maintain standing using FWW for support CGA while toileting and ambulated out of the toilet to the sink using FWW CGA. maintain standing balance CGA leaning on sink and completing handwashing and grooming. pt agreed to walk more and completed in room. requested to go back to bed after wards. positioned pt in bed. call light and table placed within reach. Gait Assessment Gait Gait Assistance Required: Contact Guard Assist Distance (Feet) 25 Able to Maintain Weight Bearing Status Yes During Gait Assistive Devices Assistive Device Gait Belt,Front Wheeled Walker Orthotic/Prosthetic Devices or Brace: No Gait Deviations General Gait Pattern Antalgic,Decreased Stride Length,Decreased Feet Clearance Factors Limiting Gait Function Factors Limiting Gait Function Decreased Activity Tolerance, Decreased Strength,Limited Range of Motion,Pain,Poor Balance,Poor Safety Awareness PT-Balance Assessment Sitting Balance and Reactions Static Sitting Balance Ability Good Dynamic Sitting Balance Ability Good Standing Balance and Reactions Static Standing Balance Ability Fair Dynamic Standing Balance Ability Fair Device Used FWW M5 PT-IP Objective Assessments Start: 06/10/19 08:31 Freq: NEEDED Status: Active Protocol: Document 06/10/19 13:40 AB (Rec: 06/10/19 17:14 AB [id number]) Orientation Orientation/Cognition Level of Alertness Alert Orientation Name,Age,Birthday,Place, Situation Language Function Ability No Deficits Noted Gross Range of Motion Lower Extremity ROM Assessment Left Impaired Impairments L knee flexion: ~ 50 deg L knee extension: -20 deg Strength Lower Extremity Strength Assessment Left Impaired Hip 3+/5 Knee 3/5 Sensation Assessment Sensation Gross Sensation WNL Muscle Tone Muscle Tone WNL Yes M6 PT-IP Treatment Start: 06/10/19 08:31 Freq: NEEDED Status: Active Protocol: Document 06/10/19 13:40 AB (Rec: 06/10/19 17:14 AB [id number]) Physical Therapy Treatment Exercises Exercises Heel Slides,Seated Knee Flexion/Extension Education Education Provided Precautions,Weight Bearing Status,Post-Op Packet,Safety M7 PT-IP Assessment and Plan Start: 06/10/19 08:31 Freq: NEEDED Status: Active Protocol: Document 06/10/19 13:40 AB (Rec: 06/10/19 17:14 AB [id number]) PT Summary Assessment and Plan Potential Rehabilitation Potential Good Status of Condition at Evaluation Evolving Summary Impairments Pain,ROM,Strength,Balance, Coordination,Sensation,Bed Mobility,Transfers,Gait, Activity Tolerance Progress Towards Goals Slow Progress due to Pain Assessment Summary pt requiring CGA with mobility but unable to tolerate much activity. pt lives alone and stated that he has somebody that comes in to assist him with house chores only. pt does not want to go to SNF. pt also stated that he is set up for outpt PT. d/c plan depending on progress and will need further assessment. Goals Bed Mobility Goal Independent Transfer Goal Independent,Front Wheeled Walker Gait Goal Independent,Front Wheel Walker Gait Distance 200 Other Goals up/down 5 steps with L rail ascending mod I Days to Meet Goals 5 Frequency of Treatment Frequency Of Treatment Twice a Day Treatment Plan Physical Therapy Treatment Plan Bed Mobility Training,Transfer Training,Gait Training, Therapeutic Exercise,Balance Retraining,Post Op Education, Discharge Planning,Hot or Cold Pack,Neuromuscular Re-ed, Coordination Retraining,Manual Therapy Other Recommendations and Next Treatment ambulation, stair climbing Focus Recommendations To Nursing Amount of Assist Needed 1 Person Assist Discharge Recommendations PT Discharge Recommendations Home with Assistance, Outpatient PT
--- NOTE | 2019-06-10 15:32 | PC.NURSE ---
Pt to floor at 1410. L.knee dressing cdi with velia wrap in place. Pt complains of discomfort to knee, Mary GAGNON just medicated patient with po meds. He is on LR at 125cc/hr. at bedside. BS cta, 96% ra. Pt has feeling down to top of knee. He is able to move it and ankle wave. PPx2 and cms wnl. Resting comfortably.
[2019-06-10] MEDS: POLYETHYLENE GLYCOL 3350 17 GM POWD.PACK PO (18:17)
--- NOTE | 2019-06-10 23:37 | PC.NURSE ---
A&OX3. 97%RA. pain controlled with oxycodone 10mg. 1pa-fww. dressing cdi. ice pack. CMS+. pp++. pt passing gas. gave miralax. call light in reach. bed alarm active.
[2019-06-11] VITALS (7 sets, daily range): BP systolic 128–154; BP diastolic 60–83; PULSE 79–97; RESP 16–20; TEMP 36.3–37.7; O2SAT 93–99
[2019-06-11] MEDS: OXYCODONE IR 10 MG TABLET PO (04:45)
[2019-06-11] MEDS: AMLODIPINE 5 MG TABLET 7.5 MG PO (08:48)
[2019-06-11] MEDS: CHLORTHALIDONE 25 MG TABLET PO (08:50)
[2019-06-11] MEDS: ASPIRIN EC 81 MG TABLET PO ×2 (08:50→21:32)
[2019-06-11] MEDS: ACETAMINOPHEN 325 MG TABLET 650 MG PO (08:50)
[2019-06-11] MEDS: DOCUSATE 100 MG CAPSULE PO ×2 (08:50→21:32)
[2019-06-11] MEDS: SODIUM CHLORIDE 0.9% FLUSH 10 ML IV ×2 (08:51→21:32)
[2019-06-11] MEDS: MELOXICAM 7.5 MG TABLET 15 MG PO (08:51)
[2019-06-11] MEDS: OXYCODONE IR 5 MG TABLET PO ×2 (08:54→12:31)
--- NOTE | 2019-06-11 09:17 | PT.IPTN ---
Addendum entered and electronically signed by Key Cosby, JAMES 06/11/19 10:52: Pt was up in chair at end of PT @ 0917am with call light within reach. Original Note: Current Diagnoses Unilateral primary osteoarthritis, left knee (06/09/19) Surgery Performed Operation Date: 06/09/19 10:45 Actual Procedures p Total Knee Arthroplasty(Left) - Adelso Morataya MD Physical Therapy Treatment Note M2 PT-IP Current Condition Start: 06/10/19 08:31 Freq: NEEDED Status: Active Protocol: Document 06/10/19 13:40 AB (Rec: 06/10/19 17:14 AB [id number]) Physical Therapy Current Condition Current Condition Evaluation Date 06/10/19 Treatment Diagnosis s/p L TKA; difficulty in walking Onset Date 06/09/19 Weight Bearing Status Weight Bearing Status Weight Bear as Tolerated M3 PT-IP Subjective Start: 06/10/19 08:31 Freq: NEEDED Status: Active Protocol: Document 06/11/19 09:17 SP (Rec: 06/11/19 09:29 SP [email or web address]) Subjective Physical Therapy Visit Type Type Treatment Note Visit Start Time 08:50 Visit Stop Time 09:17 Total Visit Minutes 27 Number of ASSURANCE ASSOCIATE Visits 1 Physical Therapy Visit Comments Patient Comments Pt is willing to work with PT today. Patient Goals Get to the bathroom. Therapy Pain Assessment Pain When Pain Assessed At Rest Pain Present Pain Present Pain Reported Location Left Knee Intensity 5 Scale Used Numeric (1 - 10) Pain Management Techniques Re-positioning,Timing of Activity with Medications M4 PT-IP Mobility and Gait Start: 06/10/19 08:31 Freq: NEEDED Status: Active Protocol: Document 06/11/19 09:17 SP (Rec: 06/11/19 09:29 SP [id number]) PT-Bed Mobility Assessment Rolling Type of Rolling Roll to Right Supine to Sit Supine to Sit Standby Assistance,Bedrails Scooting Scooting to Edge of Bed Standby Assistance PT-Transfer Assessment Sit to and From Stand Sit to and from Stand Standby Assistance,Use of Upper Extremities Equipment Transfer Assistive Device Gait Belt,Front Wheeled Walker Orthotic/Prosthetic Devices or Brace: No Transfers Transfer Destination Chair,Toilet Transfer Technique pt ambulated using FWW Transfer Ability Level of Assist Standby Assistance,Use of Upper Extremities Comments Mobility Comments Pt completed supine to sit SBA . Sit to stand from EOB SBA and ambulated to toilet SBA usign fWW. Pt was able to maintain standing usingfWW for support with good stability. Pt was able to complete toileting with use of rail SBA , no LOB or deviations and self hygiene. Gait Assessment Gait Gait Assistance Required: Standby Assistance Distance (Feet) 120 Able to Maintain Weight Bearing Status Yes During Gait Assistive Devices Assistive Device Gait Belt,Front Wheeled Walker Orthotic/Prosthetic Devices or Brace: No Gait Deviations General Gait Pattern Antalgic,Decreased Stride Length,Decreased Feet Clearance Factors Limiting Gait Function Factors Limiting Gait Function Decreased Activity Tolerance, Decreased Strength,Limited Range of Motion,Pain,Poor Balance,Poor Safety Awareness Comments Gait Comments Cued for increased L knee flexion for safety foot clearance with difficulty secondary to pain. Stair training in afternoon today to assess 5 stairs for home safety. PT-Balance Assessment Sitting Balance and Reactions Static Sitting Balance Ability Good Dynamic Sitting Balance Ability Good Standing Balance and Reactions Static Standing Balance Ability Fair Dynamic Standing Balance Ability Fair Device Used FWW M5 PT-IP Objective Assessments Start: 06/10/19 08:31 Freq: NEEDED Status: Active Protocol: Document 06/10/19 13:40 AB (Rec: 06/10/19 17:14 AB [id number]) Orientation Orientation/Cognition Level of Alertness Alert Orientation Name,Age,Birthday,Place, Situation Language Function Ability No Deficits Noted Gross Range of Motion Lower Extremity ROM Assessment Left Impaired Impairments L knee flexion: ~ 50 deg L knee extension: -20 deg Strength Lower Extremity Strength Assessment Left Impaired Hip 3+/5 Knee 3/5 Sensation Assessment Sensation Gross Sensation WNL Muscle Tone Muscle Tone WNL Yes M6 PT-IP Treatment Start: 06/10/19 08:31 Freq: NEEDED Status: Active Protocol: Document 06/10/19 13:40 AB (Rec: 06/10/19 17:14 AB [id number]) Physical Therapy Treatment Exercises Exercises Heel Slides,Seated Knee Flexion/Extension Education Education Provided Precautions,Weight Bearing Status,Post-Op Packet,Safety M7 PT-IP Assessment and Plan Start: 06/10/19 08:31 Freq: NEEDED Status: Active Protocol: Document 06/11/19 09:17 SP (Rec: 06/11/19 09:29 SP [id number]) PT Summary Assessment and Plan Potential Rehabilitation Potential Good Status of Condition at Evaluation Evolving Summary Impairments Pain,ROM,Strength,Balance, Coordination,Sensation,Bed Mobility,Transfers,Gait, Activity Tolerance Progress Towards Goals Slow Progress due to Pain Assessment Summary pt requiring SBA with mobility with improvement in activity but reports pain increases to 8/10 in L knee. pt lives alone and stated that he has somebody that comes in to assist him with house chores only. pt does not want to go to SNF. pt also stated that he is set up for outpt PT. d/ c plan depending on progress and will need further assessment. Goals Bed Mobility Goal Independent Transfer Goal Independent,Front Wheeled Walker Gait Goal Independent,Front Wheel Walker Gait Distance 200 Other Goals up/down 5 steps with L rail ascending mod I Days to Meet Goals 5 Frequency of Treatment Frequency Of Treatment Twice a Day Treatment Plan Physical Therapy Treatment Plan Bed Mobility Training,Transfer Training,Gait Training, Therapeutic Exercise,Balance Retraining,Post Op Education, Discharge Planning,Hot or Cold Pack,Neuromuscular Re-ed, Coordination Retraining,Manual Therapy Other Recommendations and Next Treatment ambulation, stair climbing Focus Recommendations To Nursing Amount of Assist Needed 1 Person Assist Discharge Recommendations PT Discharge Recommendations Home with Assistance, Outpatient PT
--- NOTE | 2019-06-11 11:32 | PM.PNPO.1 ---
Subjective Subjective Date Patient Seen: 06/11/19 Time Patient Seen: 11:34 Interval history: POD 2 s/p left total knee arthroplasty with Dr. Morataya. No acute events overnight. Patient is complaining of pain in left knee when ambulating with physical therapy. No pain when laying down. Physical therapy returns this PM for stairs. Patient wants to go home rather than SNF. He can get transport tomorrow. Voiding without difficulty. No BM. Patient denies fever, chills, nausea, vomiting, chest pain, shortness of breath. Exam Vital Signs (past 8 hours): - 06/11/19 04:48 06/11/19 09:00 Temperature 98.9 F 97.4 F L Pulse Rate 79 97 H Respiratory Rate 18 18 Blood Pressure 149/79 H 139/61 Pulse Oximetry 98 95 Oxygen Delivery Method Room Air Oxygen Flow Rate 0 Narrative Exam Narrative: 79 year old male laying comfortably in bed, in no apparent distress. A&Ox3. Aquacel dressing CDI, velia bandage wrap. Able to actively dorsiflex/plantar flex bl. Cap refill <2sec LE bl. Calves warm, compressible, soft, nttp. Dorsalis pedis 2+ bl. SCDs in place. Objective Labs Result Diagrams: 06/10/19 05:40 Assessment & Plan Post-op Postoperative Procedures: Procedures Operation Date: 06/09/19 10:45 Actual Procedures Side Surgeon p Total Knee Arthroplasty Left Adelso Morataya MD Postoperative status: doing well Postoperative plan narrative: continue ambulating with PT, needs stair clearance for discharge home continue current pain management discharge home likely tomorrow due to slow progress with PT Time Spent With Patient Time with patient: less than 15 minutes Quality VTE Deep Vein Thrombosis/Pulmonary Embolism Present on Admission: No
--- NOTE | 2019-06-11 12:16 | PC.NURSE ---
Addendum entered by Tano Olson R.N. 06/11/19 13:44: Patient sleeping on and off, resting comfortably at this time. Declines offer for suppository at this time, and states he will attempt to have BM later today and will let me know. Call light within reach, bed alarm on. continue to monitor. Original Note: Patient axox3, VSS, resting comfortably in bed this morning. Conversant and pleasant. Aquacel with velia wrap in place to left knee, remains CDI. SLIV in place. Lungs clear. Denies n/v/upset stomach. Reports he feels the need to have a BM and has a history of constipation and doesn't want to get backed up. Declines miralax today, will discuss bowel regimine with MD and continue to follow. Call light within reach, continue to monitor.
--- NOTE | 2019-06-11 14:18 | PT.IPTN ---
Current Diagnoses Unilateral primary osteoarthritis, left knee (06/09/19) Surgery Performed Operation Date: 06/09/19 10:45 Actual Procedures p Total Knee Arthroplasty(Left) - Adelso Morataya MD Physical Therapy Treatment Note M2 PT-IP Current Condition Start: 06/10/19 08:31 Freq: NEEDED Status: Active Protocol: Document 06/10/19 13:40 AB (Rec: 06/10/19 17:14 AB [id number]) Physical Therapy Current Condition Current Condition Evaluation Date 06/10/19 Treatment Diagnosis s/p L TKA; difficulty in walking Onset Date 06/09/19 Weight Bearing Status Weight Bearing Status Weight Bear as Tolerated M3 PT-IP Subjective Start: 06/10/19 08:31 Freq: NEEDED Status: Active Protocol: Document 06/11/19 14:18 SP (Rec: 06/11/19 14:45 SP [id number]) Subjective Physical Therapy Visit Type Type Treatment Note Visit Start Time 13:51 Visit Stop Time 14:18 Total Visit Minutes 27 Number of MEDICATION AID Visits 2 Physical Therapy Visit Comments Patient Comments Pt willing to work with PT. Patient Goals Assess stairs and use of SPC walking. Therapy Pain Assessment Pain When Pain Assessed During Mobility Pain Present Pain Present Pain Reported Location Left Knee Intensity 4 Scale Used Numeric (1 - 10) Pain Management Techniques Re-positioning,Timing of Activity with Medications M4 PT-IP Mobility and Gait Start: 06/10/19 08:31 Freq: NEEDED Status: Active Protocol: Document 06/11/19 14:18 SP (Rec: 06/11/19 14:45 SP [id number]) PT-Bed Mobility Assessment Rolling Type of Rolling Log Rolling Level of Assist Independent Supine to Sit Supine to Sit Standby Assistance,Bedrails Sit to Supine Sit to Supine Standby Assistance Scooting Scooting to Edge of Bed Standby Assistance Scooting Up and Down in Bed Standby Assistance PT-Transfer Assessment Sit to and From Stand Sit to and from Stand Standby Assistance,Use of Upper Extremities Equipment Transfer Assistive Device Gait Belt,Front Wheeled Walker Orthotic/Prosthetic Devices or Brace: No Transfers Transfer Destination Toilet Transfer Technique Pt ambulated using FWW Transfer Ability Level of Assist Standby Assistance,Use of Upper Extremities Comments Mobility Comments Pt completed all mobility with SBA, used FWW. Encouraged patient to continue to perform A-AAROM L knee to improve stiffness and probable decrease pain for normalizing gait. Gait Assessment Gait Gait Assistance Required: Standby Assistance,Contact Guard Assist Distance (Feet) 480 Able to Maintain Weight Bearing Status Yes During Gait Assistive Devices Assistive Device Gait Belt,Straight Cane,Front Wheeled Walker Orthotic/Prosthetic Devices or Brace: No Gait Deviations General Gait Pattern Antalgic,Decreased Stride Length,Decreased Feet Clearance Factors Limiting Gait Function Factors Limiting Gait Function Decreased Strength,Limited Range of Motion,Pain Comments Gait Comments Cued for increased L knee flexion for increased foot clearance to assist with normal gait swing phase. Pt complete 440 ft using FWW SBA and 40 ft using SPC with CGA for safety, noted little heavier on RUE WB SPC during gait. No deviations or LOB. Stair Climbing Assessment Evaluation Level of Assist On Stairs Standby Assistance Devices Stair Climbing Assistive Devices Left Railing Technique/Endurance Stair Climbing Direction Ascend and Descend Stair Climbing Technique Step to Step Number of Steps Climbed 3 Stair Climbing Set # Repetitions (reps) 2 Comments Stair Climbing Comments Good stable balance and patterning step to gait and LHR for support, stable to assimulate home environment. M5 PT-IP Objective Assessments Start: 06/10/19 08:31 Freq: NEEDED Status: Active Protocol: Document 06/10/19 13:40 AB (Rec: 06/10/19 17:14 AB [id number]) Orientation Orientation/Cognition Level of Alertness Alert Orientation Name,Age,Birthday,Place, Situation Language Function Ability No Deficits Noted Gross Range of Motion Lower Extremity ROM Assessment Left Impaired Impairments L knee flexion: ~ 50 deg L knee extension: -20 deg Strength Lower Extremity Strength Assessment Left Impaired Hip 3+/5 Knee 3/5 Sensation Assessment Sensation Gross Sensation WNL Muscle Tone Muscle Tone WNL Yes M6 PT-IP Treatment Start: 06/10/19 08:31 Freq: NEEDED Status: Active Protocol: Document 06/10/19 13:40 AB (Rec: 06/10/19 17:14 AB [id number]) Physical Therapy Treatment Exercises Exercises Heel Slides,Seated Knee Flexion/Extension Education Education Provided Precautions,Weight Bearing Status,Post-Op Packet,Safety M7 PT-IP Assessment and Plan Start: 06/10/19 08:31 Freq: NEEDED Status: Active Protocol: Document 06/11/19 14:18 SP (Rec: 06/11/19 14:45 SP [id number]) PT Summary Assessment and Plan Potential Rehabilitation Potential Good Status of Condition at Evaluation Evolving Summary Impairments Pain,ROM,Strength,Balance, Coordination,Sensation,Bed Mobility,Transfers,Gait, Activity Tolerance Progress Towards Goals Slow Progress due to Pain Assessment Summary pt requiring SBA with mobility with improvement in activity level but reports pain increases to 4/10 in L knee. pt lives alone and stated that he has somebody that comes in to assist him with house chores only. pt does not want to go to SNF. pt also stated that he is set up for outpt PT. d/c plan PT, patient is progressing toward goals, is cleared from PT pending medical discharge. Goals Bed Mobility Goal Independent Transfer Goal Independent,Front Wheeled Walker Gait Goal Independent,Front Wheel Walker Gait Distance 200 Other Goals up/down 5 steps with L rail ascending mod I Days to Meet Goals 5 Frequency of Treatment Frequency Of Treatment Twice a Day Treatment Plan Physical Therapy Treatment Plan Bed Mobility Training,Transfer Training,Gait Training, Therapeutic Exercise,Balance Retraining,Post Op Education, Discharge Planning,Hot or Cold Pack,Neuromuscular Re-ed, Coordination Retraining,Manual Therapy Other Recommendations and Next Treatment ambulation, stair climbing Focus Recommendations To Nursing Amount of Assist Needed 1 Person Assist Discharge Recommendations PT Discharge Recommendations Home with Assistance, Outpatient PT
[2019-06-11] MEDS: BISACODYL 10 MG SUPP PR (17:34)
--- NOTE | 2019-06-11 21:55 | PC.NURSE ---
Evening Shift 2144 The patient complained of discomfort at his IV site and asked for it to be taken out. This student nurse explained that IVs are usually left in until discharge incase IV medications are needed. The patient was still adamant, so this student nurse took out his IV under supervision of the RN. The patient ambulated to the bathroom SBA with FWW and back to bed and tolerated ambulation well. The patient received nighttime medications and is now resting comfortably. Safety measures in place, will continue to monitor.
[2019-06-12 03:35] VITALS: BP 156/82; PULSE 96; RESP 16; TEMP 36.9; O2SAT 98
--- NOTE | 2019-06-12 08:16 | P.DS_ITS ---
History of Present Illness History of Present Illness Date Patient Seen: 06/12/19 Time Patient Seen: 08:16 Chief complaint: [id number] Narrative: The history and physical are contained in the chart in a previously completed note. Discharge Providers Provider Date of admission: 06/09/19 08:02 Discharge Date: 06/12/19 Primary care physician: Syd Crowe Consults: 06/09/19 14:55 Consult to Discharge Planning Routine Comment: Consult to Physical Therapy Evaluate & Treat Comment: Physician Instructions: postop TKA protocol Discharge provider: Adelso Morataya MD Summary Hospital Course Discharge Diagnosis: 1. Left knee osteoarthritis 2. Post hemorrhagic anemia Hospital Course: The patient was admitted to the hospital and taken directly to the operating room on June 09, 2019. He underwent a left total knee replacem ent without complication. The patient is 79 years old and lives alone so he was kept in the hospital for appropriate rehabilitation to be safe for his home environment. He made slow steady progress and was ready for discharge home on postoperative day 3. Status at Discharge Cognitive/behavioral status at discharge: oriented Functional status at discharge: uses cane/walker Overall status at discharge: patient is progressing back to baseline Time Spent with Patient Time spent: Less than 30 minutes Exam Vital Signs (past 8 hours): - 06/12/19 03:35 Temperature 98.4 F Pulse Rate 96 H Respiratory Rate 16 Blood Pressure 156/82 H Pulse Oximetry 98 Oxygen Delivery Method Room Air Oxygen Flow Rate 0 Narrative Exam Narrative: Left knee wound is dressed with no drainage on the bandage. Calf is soft. Light touch and motion are intact in the left lower extremity. Objective Labs Result Diagrams: 06/10/19 05:40 Discharge Plan Discharge Plan Patient Disposition: Home Discharge Med Rec/Prescriptions Prescriptions: New aspirin 81 mg Tablet,Delayed Release (Dr/Ec) 81 mg PO BID 42 Days Qty: 84 RF: 0 oxycodone 5 mg Tablet 5 mg PO Q3HR PRN (Reason: Pain, Moderate (4-6)) Qty: 40 RF: 0 Continued acetaminophen 325 mg Tablet 650 mg PO Q6HR PRN (Reason: Pain, Mild (1-3)) Qty: 0 RF: 0 chlorthalidone 25 mg Tablet 25 mg PO DAILY RF: 0 amlodipine [Norvasc] 5 MG tablet 7.5 mg PO QDAY RF: 0 Follow up/Referrals: Syd Crowe [Primary Care Provider] - Adelso Morataya MD [Physician] - 2 Weeks Provider Discharge Instructions Diet: Diet as Tolerated and Regular Activity: You may bear weight as tolerated on your left leg. Continue the exercises he learned in the hospital until seen by physical therapy. Cold/Heat Therapy: Apply ice to the left knee for 15 minutes of every hour as needed for pain control. Skin/Wound/Dressing Care Report to your healthcare provider any signs of infection, such as:: chills, fever, night sweats, increased pain, unusual drainage and unusual redness Dressing: You may remove the [place] wrap at this time. Keep the deeper dressing in place until follow-up. You may shower with the deeper dressing in place. If t he central strip of the deeper dressing becomes saturated with either water or blood, please call the office. Visit Report/Discharge Packet Instructions: DI for Knee Replacement Stand Alone Forms: Surgery Discharge Discharge Data Primary Care Provider: Syd Crowe Quality VTE Deep Vein Thrombosis/Pulmonary Embolism Present on Admission: No
[2019-06-12] MEDS: AMLODIPINE 5 MG TABLET 7.5 MG PO (08:43)
[2019-06-12] MEDS: ASPIRIN EC 81 MG TABLET PO (08:45)
[2019-06-12] MEDS: DOCUSATE 100 MG CAPSULE PO (08:45)
[2019-06-12] MEDS: CHLORTHALIDONE 25 MG TABLET PO (08:45)
[2019-06-12] MEDS: MELOXICAM 7.5 MG TABLET 15 MG PO (08:48)
--- NOTE | 2019-06-12 12:30 | PT.IPTN ---
Current Diagnoses Unilateral primary osteoarthritis, left knee (06/09/19) Surgery Performed Operation Date: 06/09/19 10:45 Actual Procedures p Total Knee Arthroplasty(Left) - Adelso Morataya MD Physical Therapy Treatment Note M2 PT-IP Current Condition Start: 06/10/19 08:31 Freq: NEEDED Status: Discharge Protocol: Document 06/10/19 13:40 AB (Rec: 06/10/19 17:14 AB [id number]) Physical Therapy Current Condition Current Condition Evaluation Date 06/10/19 Treatment Diagnosis s/p L TKA; difficulty in walking Onset Date 06/09/19 Weight Bearing Status Weight Bearing Status Weight Bear as Tolerated M3 PT-IP Subjective Start: 06/10/19 08:31 Freq: NEEDED Status: Discharge Protocol: Document 06/12/19 09:01 MITCHEL (Rec: 06/12/19 11:46 MITCHEL [id number]) Subjective Physical Therapy Visit Type Type Treatment Note Visit Start Time 09:01 Visit Stop Time 09:22 Total Visit Minutes 21 Notes Tx led by COLLIN Del Toro Number of FUSION ANALYST Visits 0 Physical Therapy Visit Comments Patient Comments I am planning to go home later today and have a friend who is going to drive me. Patient Goals Return home Therapy Pain Assessment Pain When Pain Assessed During Mobility Pain Present Pain Present Pain Reported Location Left Knee Description With Movement Pain Management Techniques Distraction M4 PT-IP Mobility and Gait Start: 06/10/19 08:31 Freq: NEEDED Status: Discharge Protocol: Document 06/12/19 09:01 MITCHEL (Rec: 06/12/19 11:46 MITCHEL [id number]) PT-Bed Mobility Assessment Rolling Type of Rolling Roll to Right Level of Assist Independent Supine to Sit Supine to Sit Standby Assistance,Bedrails Scooting Scooting to Edge of Bed Standby Assistance PT-Transfer Assessment Sit to and From Stand Sit to and from Stand Standby Assistance,Use of Upper Extremities Equipment Transfer Assistive Device Gait Belt,Front Wheeled Walker Orthotic/Prosthetic Devices or Brace: No Transfers Transfer Destination Chair,Toilet Transfer Ability Level of Assist Standby Assistance,Use of Upper Extremities Comments Mobility Comments Pt SBA for all mobility using FWW and UE support. Pt used R LE to assist with moving L LE and reports that he still can' t extend or lift his leg independently. Gait Assessment Gait Gait Assistance Required: Standby Assistance,Contact Guard Assist,Minimum Assistance Distance (Feet) 480 Able to Maintain Weight Bearing Status Yes During Gait Assistive Devices Assistive Device Gait Belt,Straight Cane,Front Wheeled Walker Orthotic/Prosthetic Devices or Brace: No Gait Deviations General Gait Pattern Antalgic,Decreased Stride Length,Decreased Feet Clearance,Flexed Trunk,Lateral Trunk Lean Factors Limiting Gait Function Factors Limiting Gait Function Decreased Strength,Limited Range of Motion,Pain,Poor Balance Comments Gait Comments Pt SBA for ambulation with FWW but cont to demonstrate decreased foot clearance. Required cuing to stand up straight. Switched to SPC partway through ambulation. Pt required CGA for majority of ambulation with SPC but did have minor LOB when turning a corner and distracted, required min A to prevent further LOB but then was able to self correct. Pt demonstrates increased forward and lateral trunk lean with SPC. PT recommends pt to cont using walker for ambulation for safety and stability. Stair Climbing Assessment Evaluation Level of Assist On Stairs Standby Assistance Devices Stair Climbing Assistive Devices Left Railing Technique/Endurance Stair Climbing Direction Ascend and Descend Stair Climbing Technique Step to Step Number of Steps Climbed 3 Stair Climbing Set # Repetitions (reps) 2 Comments Stair Climbing Comments Pt able to verbally confirm which foot to lead with and demonstrated consistent safety awareness during stair climbing. Cont to use L UE support. PT-Balance Assessment Sitting Balance and Reactions Static Sitting Balance Ability Good Dynamic Sitting Balance Ability Good Standing Balance and Reactions Static Standing Balance Ability Fair Dynamic Standing Balance Ability Fair Device Used FWW, SPC M5 PT-IP Objective Assessments Start: 06/10/19 08:31 Freq: NEEDED Status: Discharge Protocol: Document 06/10/19 13:40 AB (Rec: 06/10/19 17:14 AB [id number]) Orientation Orientation/Cognition Level of Alertness Alert Orientation Name,Age,Birthday,Place, Situation Language Function Ability No Deficits Noted Gross Range of Motion Lower Extremity ROM Assessment Left Impaired Impairments L knee flexion: ~ 50 deg L knee extension: -20 deg Strength Lower Extremity Strength Assessment Left Impaired Hip 3+/5 Knee 3/5 Sensation Assessment Sensation Gross Sensation WNL Muscle Tone Muscle Tone WNL Yes M6 PT-IP Treatment Start: 06/10/19 08:31 Freq: NEEDED Status: Discharge Protocol: Document 06/12/19 09:01 Terry (Rec: 06/12/19 11:46 J [id number]) Physical Therapy Treatment Exercises Exercises Heel Slides Education Education Provided Safety Other Treatments Other Treatment Performed AROM and AAROM prior to ambulation. M7 PT-IP Assessment and Plan Start: 06/10/19 08:31 Freq: NEEDED Status: Discharge Protocol: Document 06/12/19 09:01 MITCHEL (Rec: 06/12/19 11:46 MITCHEL [id number]) PT Summary Assessment and Plan Potential Rehabilitation Potential Good Status of Condition at Evaluation Evolving Summary Impairments Pain,ROM,Strength,Balance, Coordination,Sensation,Bed Mobility,Transfers,Gait, Activity Tolerance Progress Towards Goals Progressing Toward Goals Assessment Summary Pt demonstrates cont knee ROM limitations but improving to 10-80 dg flexion. Cont to report pain as main limiter of ROM and strength. Pt cont to require SBA for mobility and ambulation with FWW but demonstrates impaired balance and CGA/min A with SPC. PT recommends pt to cont using FWW for mobility. Pt is progressing towards goals and is safe to d/c to home once medically cleared. Goals Bed Mobility Goal Independent Transfer Goal Independent,Front Wheeled Walker Gait Goal Independent,Front Wheel Walker Gait Distance 200 Other Goals up/down 5 steps with L rail ascending mod I Days to Meet Goals 5 Frequency of Treatment Frequency Of Treatment Twice a Day Treatment Plan Physical Therapy Treatment Plan Bed Mobility Training,Transfer Training,Gait Training, Therapeutic Exercise,Balance Retraining,Post Op Education, Discharge Planning,Hot or Cold Pack,Neuromuscular Re-ed, Coordination Retraining,Manual Therapy Other Recommendations and Next Treatment ambulation, stair climbing Focus Recommendations To Nursing Amount of Assist Needed 1 Person Assist Discharge Recommendations PT Discharge Recommendations Home with Assistance, Outpatient PT
== END 2019-06-12 12:21 | disposition home or self-care (01) ==
LOC: AC 06-12 12:07 → OR 06-12 12:33 → AC 06-12 12:35 → OR 06-12 12:35
PROVIDERS: Admitting Provider Orthopaedic Surgery; PCP Family Medicine; Visit Provider Orthopaedic Surgery
PROC: 0SRD0JZ Replacement of Left Knee Joint with Synthetic Substitute, Open Approach (ICD-10-PCS; CPT 27447; principal; 2019-06-09 10:45)
DX: M17.12 Unilateral primary osteoarthritis, left knee (principal); D50.0 Iron deficiency anemia secondary to blood loss (chronic)
CPT/HCPCS: 27447; 36415; 73560; 85014; 85018; 94762; 97116; 97161; 97530; C1776; G0378; C9290; J0690; J1100; J1170; J2060; J2250; J2270; J2274; J2405; J2704; J3010

== ENCOUNTER → 2020-01-25 11:21 | Outpatient (CLI) | payer MEDICARE, OTHER, SELFPAY ==
[2019-06-09 16:20] VITALS: BMI 25.2
--- NOTE | 2020-01-25 | DI.MRI.S_ITS ---
PROCEDURE: MR SHOULDER LT WO CON INDICATIONS: LEFT SHOULDER TENDONITIS TECHNIQUE: Noncontrast oblique coronal T2 fast spin echo with fat saturation, oblique sagittal T1 spin echo and T2 fast spin echo with fat saturation, axial T1 spin echo and T2 fast spin echo with fat saturation through the shoulder. COMPARISON: None. FINDINGS: Image quality: Excellent. Rotator cuff: There is full-thickness rupture involving anterior fibers of the distal supraspinatus at its insertion the humeral head with up to 2.6 cm medial retraction of torn tendon fibers to the level of acromioclavicular joint. Tendinosis and moderate grade articular and bursal surface partial-thickness tear involving mid to posterior fibers of distal supraspinatus and infraspinatus are seen extending to the musculotendinous junction. Tendinosis and moderate grade partial-thickness tear involving the superior to mid fibers of distal subscapularis is also noted. Sagittal images demonstrate moderate supraspinatus muscle atrophy. Strain/low-grade intrasubstance partial-thickness tear involving visualized infraspinatus and teres minor muscles are also seen. Bones and bursae: No bone marrow contusions or fractures. No acromioclavicular joint degeneration. The acromi moderate acromioclavicular joint and glenohumeral joint osteoarthritic changes are noted. on demonstrates conventional anatomy, without an os acromiale. Small to moderate amount of subacromial subdeltoid bursal fluid is present. Capsule and soft tissues: In the absence of intra-articular contrast, there is suggestion of superior anterior labral tear at the 12 to 2:00 position. glenohumeral ligaments appear intact. The long head of the biceps tendon is not visualized intra-articularly suggestive of proximal long head biceps tendon tear. The rotator interval appears normal, without fibrosis. The coracohumeral ligament is normal in thickness. IMPRESSION: 1. Full-thickness rupture involving anterior fibers of distal supraspinatus at its insertion the humeral head with up to 2.6 cm medial retraction of torn tendon fibers to the level of acromial clavicular joint. Tendinosis and moderate grade articular and bursal surface partial-thickness tear involving mid to posterior fibers of distal supraspinatus and infraspinatus extending to the musculotendinous junction. Tendinosis and moderate grade partial-thickness tear involving superior to mid fibers of distal subscapularis. 2. Mild to moderate supraspinatus muscle atrophy. Strain/intrasubstance partial-thickness tear involving visualized infraspinatus and teres minor muscles and musculotendinous junction. 3. Moderate acromioclavicular joint and glenohumeral joint osteophyte is. A moderate amount of joint effusion or subacromial subdeltoid bursal fluid. No gross intra-articular loose body. 4. Suggestion of superior anterior labral tear a 12 to 2:00 position. 5. Proximal intra-articular portion of long head of biceps tendon is not visualized, suggestive of proximal biceps tendon rupture. Dictated by: Joo Abarca M.D. on 01/25/2020 at 13:19 Approved by: Joo Abarca M.D. on 01/25/2020 at 13:26
== END ==
PROVIDERS: PCP Family Medicine; Referring Provider Family Medicine; Visit Provider Family Medicine
DX: M75.92 Shoulder lesion, unspecified, left shoulder (principal); M75.122 Complete rotator cuff tear or rupture of left shoulder, not specified as traumatic; M62.512 Muscle wasting and atrophy, not elsewhere classified, left shoulder
CPT/HCPCS: 73221

== ENCOUNTER → 2020-06-21 13:17 | Outpatient (CLI) | payer MEDICARE, OTHER, SELFPAY ==
[2019-06-09 16:20] VITALS: BMI 25.2
--- NOTE | 2020-06-21 | DI.ECHO.S_ITS ---
[facility]---------+ [facility] +---------+ : : [address] : : : : [id number] : : : : Phone: [phone] Echocardiogram Report + + :Name: NADIYA ZARATE Study Date: 06/21/2020 Height: 71 in : :[facility] Weight: 192 lb : : Gender: Male BSA: 2.1 m2 : :: 1940 Age: 80 yrs BP: 150/79 mmHg: :Reason For Study: CARDIOMYOPATHY : :Ordering Physician: SHUKRI, : :TUSHAR Performed By: Sherly Escobar : :Referring: TUSHAR CAMPOS : + + Interpretation Summary 1) Normal left ventricular size and thickness with mildly reduced systolic function (EF 45-50%). 2) Global hypokinesis with septal dyssynchrony that could be due to conduction delay. 3) Minimal inflow gradient across the mitral valve (mean 2.7mmHg) consistent with very mild mitral stenosis.. 4) Hypertension present during the study (BP 150/79mmHg). Sinus bradycardia with HR in the 57-59bpm range noted during the study. 5) Compared to the Echo done 03/04/2020, no significant change. Procedure: A two-dimensional transthoracic echocardiogram with color flow and Doppler was performed. The study quality was technically adequate. Comparison is made with the echocardiogram of 03/04/2020. The patient was in sinus bradycardia with heart rates between 57-59 bpm during the exam. Left Ventricle: The left ventricle is normal in size. Proximal septal thickening is noted. The estimated left ventricular end diastolic volume is 96 ml. The ejection fraction is estimated to be 45-50%. There is a mild dyssynchronous contraction pattern, consistent with a conduction abnormality. Diastolic parameters suggest a pseudonormalization pattern, consistent with probable elevated filling pressures. Right Ventricle: The right ventricle is at the upper limits of normal in size. The right ventricular systolic function is normal. Atria: The left atrium is moderately dilated. The right atrium is normal in size. There is no Doppler evidence for an interatrial shunt. Mitral Valve: There is mild mitral annular calcification. The mitral valve leaflets appear mildly thickened, but open well. The mitral valve mean gradient is 2.7 mmHg. There is trace mitral regurgitation. Aortic Valve: The aortic valve is trileaflet. The aortic valve opens well. There is no aortic valve stenosis. No aortic regurgitation is present. Tricuspid Valve: The tricuspid valve is not well visualized, but is grossly normal. The right ventricular systolic pressure is estimated to be at least 35 mmHg based on an estimated right atrial pressure of 8 mm Hg. There is mild tricuspid regurgitation. Pulmonic Valve: The pulmonic valve leaflets are thin and pliable; valve motion is normal. There is no pulmonic valvular regurgitation. Great Vessels: The aortic root is normal size. The dimensions of the ascending aorta are normal. The IVC is dilated (diameter is greater than 2.1 cm) yet it collapses greater than 50% with a sniff. This suggests a right atrial pressure of 8 mm Hg. Pericardium/ Pleura There is no pericardial effusion. There is no pleural effusion. MMode/2D Measurements & Calculations LVIDd: 5.1 cm LVOT diam: 2.1 cm LVIDs: 4.1 cm Ao root diam: 3.2 cm FS: 19.8 % asc Aorta Diam: 3.3 cm IVSd: 0.95 cm Ao Arch Diam (Prox Trans): 3.0 cm LVPWd: 0.89 cm LV clifford. diameter/BSA (cm/m^2): 2.5 LV sys. diameter/BSA (cm/m^2): 2.0 LA A2 area: 26.1 cm2 RA long axis: 4.8 cm LA A4 area: 26.5 cm2 RA area: 15.8 cm2 LA length (vol): 6.1 cm RA vol: 43.8 ml LA vol: 96.2 ml RA : 21.1 ml/m2 LA vol index: 46.4 ml/m2 IVC diam: 2.4 cm RVD1 (basal): 4.1 cm TAPSE: 2.2 cm Doppler Measurements & Calculations Ao V2 max: 162.9 cm/sec LVOT Max Juanito: 122.4 cm/sec Ao V2 mean: 109.7 cm/sec LV V1 max P.0 mmHg Ao max P.6 mmHg LV V1 VTI: 22.3 cm Ao mean P.5 mmHg ASA(I,D): 2.4 cm2 Ao V2 VTI: 32.0 cm ASA(V,D): 2.6 cm2 sev ratio: 0.70 ASA indexed to BSA (cm^2/m^2): 1.1 MV E max juanito: 116.8 cm/sec TR max juanito: 262.0 cm/sec MV A max juanito: 117.6 cm/sec TR max P.5 mmHg MV E/A: 0.99 Med Peak E' Juanito: 4.0 cm/sec E/E' med: 29.3 Lat Peak E' Juanito: 6.2 cm/sec E/E' lat: 18.9 E/e' average: 24.1 MV dec time: 0.52 sec MVA(VTI): 1.3 cm2 MV V2 mean: 76.3 cm/sec SV(LVOT): 75.6 ml MV mean P.7 mmHg MV V2 VTI: 58.2 cm Reading Physician:04:54 PM
== END ==
PROVIDERS: PCP Family Medicine; Referring Provider Family Medicine; Visit Provider Internal Medicine Cardiovascular Disease
DX: I07.1 Rheumatic tricuspid insufficiency (principal); I42.9 Cardiomyopathy, unspecified
CPT/HCPCS: 93306

== ENCOUNTER → 2021-01-05 14:27 | Outpatient (CLI) | payer MEDICARE, OTHER, SELFPAY ==
[2019-06-09 16:20] VITALS: BMI 25.2
--- NOTE | 2021-01-05 14:30 | DI.ECHO.S_ITS ---
[facility] +---------+ : : [address] : : : : [id number] : : : : Phone: [phone]---------+ Echocardiogram Report + + :Name: NADIYA ZARATE Study Date: 01/05/2021 Height: 71 in : :[facility] ReadingLocation: Weight: 190 lb: : Gender: Male BSA: 2.1 m2 : :: 1940 Age: 80 yrs : :Reason For Study: Cardiomyopathy : :Ordering Physician: Tushar : :Wayne Campos Performed By: Kanu Martinez : :Referring: TUSHAR CAMPOS : + + Interpretation Summary 1) Normal left ventricular size, thickness, wall motion, and systolic function (EF 60-65%). 2) Normal right ventricular size and function. 3) MIld inflow gradient across the mitral valve (mean 4mmHg) consistent with mild mitral stenosis 4) Compared to the Echo done 06/21/2020, LVEF has improved from 45-50% to 60- 65% on this study. Procedure: A two-dimensional transthoracic echocardiogram with color flow and Doppler was performed. The study quality was technically adequate. Comparison is made with the echocardiogram of 06/21/2020. The patient was in sinus rhythm with heart rates between 58-64 bpm during the exam. Left Ventricle: The left ventricle is normal in size and wall thickness. Left ventricular systolic function is normal. The ejection fraction is estimated to be 60-65%. There are no focal wall motion abnormalities. Diastolic parameters suggest a pseudonormalization pattern, consistent with probable elevated filling pressures. Right Ventricle: The right ventricle is normal in size and function. Atria: The left atrium is mildly dilated. The right atrium is normal in size. There is no Doppler evidence for an interatrial shunt. Mitral Valve: There is mild to moderate mitral annular calcification. There is mild mitral stenosis. The mitral valve mean gradient is 4 mmHg. There is no mitral regurgitation noted. Aortic Valve: The aortic valve is normal in structure and function. There is no aortic valve stenosis. No aortic regurgitation is present. Tricuspid Valve: The tricuspid valve is normal in structure and function. There is trace tricuspid regurgitation. Right ventricular systolic pressure is estimated to be 27 mmHg plus the clinically estimated CVP which cannot be estimated on this exam. Pulmonic Valve: The pulmonic valve is normal in structure and function. There is no pulmonic valvular regurgitation. Great Vessels: The aortic root is normal size. The inferior vena cava was not visualized. Pericardium/ Pleura There is no pericardial effusion. There is no pleural effusion. MMode/2D Measurements & Calculations LVIDd: 4.7 cm LVOT diam: 2.1 cm LVIDs: 3.3 cm Ao root diam: 3.8 cm FS: 30.1 % asc Aorta Diam: 3.2 cm IVSd: 0.78 cm LVPWd: 0.74 cm LV clifford. diameter/BSA (cm/m^2): 2.3 LV sys. diameter/BSA (cm/m^2): 1.6 LA A2 area: 26.2 cm2 RA area: 14.4 cm2 LA A4 area: 21.4 cm2 LA length (vol): 6.1 cm LA vol: 78.3 ml LA vol index: 38.0 ml/m2 RVD1 (basal): 3.9 cm TAPSE: 2.4 cm Doppler Measurements & Calculations Ao V2 max: 153.5 cm/sec LVOT Max Juanito: 110.7 cm/sec Ao V2 mean: 113.3 cm/sec LV V1 max P.9 mmHg Ao max P.4 mmHg LV V1 VTI: 24.3 cm Ao mean P.6 mmHg ASA(I,D): 2.5 cm2 Ao V2 VTI: 34.5 cm ASA(V,D): 2.6 cm2 sev ratio: 0.70 ASA indexed to BSA (cm^2/m^2): 1.2 MV E max juanito: 150.3 cm/sec TR max juanito: 260.8 cm/sec MV A max juanito: 121.8 cm/sec TR max P.2 mmHg MV E/A: 1.2 PA V2 max: 119.6 cm/sec Med Peak E' Juanito: 4.4 cm/sec PA V2 mean: 88.5 cm/sec E/E' med: 34.0 PA mean P.4 mmHg Lat Peak E' Juanito: 6.4 cm/sec PA pr(Accel): 42.7 mmHg E/E' lat: 23.4 E/e' average: 28.7 MV dec time: 0.39 sec MVA(VTI): 1.4 cm2 MV V2 mean: 95.4 cm/sec SV(LVOT): 86.8 ml MV mean P.0 mmHg MV V2 VTI: 60.5 cm MV P1/2t-pr_phl: 146.2 msec Reading Physician:05:38 PM
== END ==
PROVIDERS: PCP Family Medicine; Referring Provider Internal Medicine Cardiovascular Disease; Visit Provider Internal Medicine Cardiovascular Disease
DX: I42.9 Cardiomyopathy, unspecified (principal); I05.0 Rheumatic mitral stenosis
CPT/HCPCS: 93306

== ENCOUNTER → 2022-01-29 08:29 | Outpatient (CLI) | payer MEDICARE, OTHER, SELFPAY ==
[2019-06-09 16:20] VITALS: BMI 25.2
[2022-01-29 19:23] LABS: Add Manual Diff / Slide Review NO; Basophils Absolute Auto 0 /uL (0-100); Basophils Percent Auto 0.6 % (0-2); Eosinophils Absolute Auto 100 /uL (0-450); Eosinophils Percent Auto 1.9 % (2-4); Hematocrit 40.8 % (41-53); Hemoglobin 13.7 g/dL (13.5-17.5); Lymphocytes Absolute Auto 2000 /uL (1100-4500); Lymphocytes Percent Auto 35.9 % (25-40); Mean Corpuscular HGB Conc 33.5 % (30-36); Mean Corpuscular Hemoglobin 29.1 PG (26-34); Monocytes Absolute Auto 600 /uL (0-900); Monocytes Percent Auto 10.5 % (3-14); Neutrophils Absolute Auto 2900 /uL (1500-7000); Neutrophils Percent Auto 51.1 % (50-75); Platelet Count 192 X10^3/uL (150-400); Red Blood Cell Count 4.69 X10^6/uL (4.5-5.9); Red Cell Distribution Width 12.9 % (11.6-14.8); White Blood Cell Count 5.7 X10^3/uL (4.5-11.0)
[2022-01-29 19:31] LABS: Hemoglobin A1C% w Est Avg Glu 6.9 % (4.0-6.0)
[2022-01-29 19:36] LABS: BUN Creatinine Ratio 16.3 (6-22); Blood Urea Nitrogen 15 mg/dL (9-20); Calcium 8.7 mg/dL (8.4-10.2); Carbon Dioxide 27 mmol/L (22-32); Chloride 101 mmol/L (98-107); Cholesterol 175 mg/dL (140-199); Estimated Glomerular Filt Rate > 60 mL/min (>60); Glucose 151 mg/dL (80-110); HDL Cholesterol 44 mg/dL (40-60); HEMOLYSIS < 15 (0-50); LDL Cholesterol Calculated 111 mg/dL (<100); Potassium 4.7 mmol/L (3.4-5.1); Sodium 137 mmol/L (137-145); Triglycerides 98 mg/dL (35-150)
== END ==
PROVIDERS: PCP Family Medicine; Visit Provider Internal Medicine Cardiovascular Disease
DX: R73.9 Hyperglycemia, unspecified (principal); I10 Essential (primary) hypertension
CPT/HCPCS: 80048; 80061; 83036; 85025

== ENCOUNTER → 2022-06-06 15:09 | Outpatient (CLI) | payer MEDICARE, OTHER, SELFPAY ==
[2022-06-05 14:57] VITALS: BMI 25.2
[2022-06-06 19:34] LABS: Alanine Aminotransferase 26 IU/L (<50); Albumin 4.4 g/dL (3.5-5.0); Albumin Globulin Ratio 1.4 (1.0-2.8); Alkaline Phosphatase 84 U/L (38-126); Aspartate Aminotransferase 27 IU/L (17-59); BUN Creatinine Ratio 14.9 (6-22); Bilirubin Total 0.6 mg/dL (0.2-1.3); Blood Urea Nitrogen 14 mg/dL (9-20); Carbon Dioxide 24 mmol/L (22-32); Chloride 100 mmol/L (98-107); Estimated Glomerular Filt Rate > 60 mL/min (>60); Globulin 3.1 g/dL (1.7-4.1); Glucose 152 mg/dL (80-110); HEMOLYSIS < 15 (0-50); Potassium 4.4 mmol/L (3.4-5.1); Sodium 136 mmol/L (137-145); Total Protein 7.5 g/dL (6.3-8.2)
[2022-06-06 20:11] LABS: Add Manual Diff / Slide Review NO; Basophils Absolute Auto 0 /uL (0-100); Basophils Percent Auto 0.2 % (0-2); Eosinophils Absolute Auto 0 /uL (0-450); Eosinophils Percent Auto 0.7 % (2-4); Hematocrit 42.5 % (41-53); Hemoglobin 14.5 g/dL (13.5-17.5); Lymphocytes Absolute Auto 1700 /uL (1100-4500); Lymphocytes Percent Auto 24.8 % (25-40); Mean Corpuscular HGB Conc 34.1 % (30-36); Mean Corpuscular Hemoglobin 29.2 PG (26-34); Mean Corpuscular Volume 85.4 fL (80-100); Monocytes Absolute Auto 700 /uL (0-900); Neutrophils Absolute Auto 4300 /uL (1500-7000); Neutrophils Percent Auto 64.3 % (50-75); Platelet Count 217 X10^3/uL (150-400); Red Blood Cell Count 4.98 X10^6/uL (4.5-5.9); Red Cell Distribution Width 12.8 % (11.6-14.8); White Blood Cell Count 6.7 X10^3/uL (4.5-11.0)
[2022-06-06 20:13] LABS: Hemoglobin A1C% w Est Avg Glu 6.6 % (4.0-6.0)
== END ==
PROVIDERS: PCP Family Medicine; Visit Provider Physician Assistant
DX: I10 Essential (primary) hypertension (principal); Z86.2 Personal history of diseases of the blood and blood-forming organs and certain disorders involving the immune mechanism; R42 Dizziness and giddiness
CPT/HCPCS: 80053; 83036; 85025

== ENCOUNTER → 2022-06-07 13:52 | Outpatient (CLI) | payer MEDICARE, OTHER, SELFPAY ==
[2022-06-05 14:57] VITALS: BMI 25.2
[2022-06-11 16:23] LABS: Fecal Immunochemical Test Negative (Negative)
== END ==
PROVIDERS: PCP Physician Assistant; Visit Provider Physician Assistant
DX: Z86.2 Personal history of diseases of the blood and blood-forming organs and certain disorders involving the immune mechanism (principal)
CPT/HCPCS: 82274

== ENCOUNTER → 2022-07-27 13:13 | Outpatient (CLI) | payer MEDICARE, OTHER, SELFPAY ==
[2022-06-05 14:57] VITALS: BMI 25.2
--- NOTE | 2022-07-27 | DI.CT.S_ITS ---
PROCEDURE: CT LUMBAR SPINE WO CON INDICATIONS: SPINAL STENOSIS OF LUMBAR REGION TECHNIQUE: Noncontrast 3 mm thick sections acquired from the T12 level to the sacrum. Sagittal and coronal reformats were constructed. For radiation dose reduction, the following was used: automated exposure control. COMPARISON: [facility], CT, CT LUMBAR SPINE WO CON, 12/11/2018, 12:11. [facility], CT, CT LUMBAR SPINE WO CON, 06/24/2018, 12:16. FINDINGS: Image quality: Excellent. Bones: Postsurgical changes are again seen with posterior fixation hardware extending from L3 through S1. Hardware components are in stable positions when compared to the prior CT. There is S-shaped curvature of the lumbar spine. Unchanged grade 1 anterolisthesis of L5 on S1. No acute vertebral body compression fractures. No suspicious lytic or blastic bony lesions. No pars defects. T12-L1: Loss of disc space height and vacuum disc phenomenon with posterior disc-osteophyte complex and mild bilateral facet hypertrophy. Findings result in severe left and acss-ai-utdoygul right neural foraminal narrowing which has not significantly changed compared to the CT from 12/11/2018. No significant spinal canal stenosis. L1-L2: Loss of disc space height and vacuum disc phenomenon with posterior disc-osteophyte complex and ljvl-vq-lwtvgbjf bilateral neural foraminal narrowing and buckling of the ligamentum flavum, which result in moderate narrowing of the spinal canal as well as moderate to severe bilateral neural foraminal narrowing. Findings have progressed when compared to the prior CT. L2-L3: Loss of disc space height and vacuum disc phenomenon with circumferential disc bulging as well as moderate bilateral facet hypertrophy and buckling of the ligamentum flavum. Findings result in moderate to severe narrowing of the spinal canal as well as mild bilateral neural foraminal narrowing. Findings have mildly progressed when compared to the prior CT. L3-L4: Postsurgical changes from left hemilaminotomy and posterior fixation with prominent right facet hypertrophy. Spinal canal is decompressed. There is mild to moderate left and moderate right neural foraminal narrowing. Findings have not significantly changed when compared to the prior exam. L4-L5: Postsurgical changes from laminectomy and posterior fixation. Bilateral facet hypertrophy is present. Spinal canal is decompressed. There is mild bilateral neural foraminal narrowing. L5-S1: Postsurgical changes from laminectomy and posterior fixation and bilateral facet hypertrophy. Spinal canal is decompressed. There is moderate to severe left and moderate right neural foraminal narrowing, which does not appear significantly changed. Soft tissues: No retroperitoneal masses or hematomas. Visualized aorta is normal in caliber. Aortic atherosclerotic calcifications are present. There is grade 2-3 fatty infiltration of the lower paraspinous musculature. Diverticula are seen in the colon. IMPRESSION: 1. Postsurgical changes again seen extending from L3-S1 with intact hardware. 2. At L2-3, there is moderate to severe narrowing of the spinal canal, which has progressed when compared to the CT from 12/11/2018. 3. At L1-2, there is moderate narrowing of the spinal canal and moderate to severe bilateral neural foraminal narrowing that has progressed when compared to the prior CT. 4. Additional multilevel neural foraminal narrowing as described in detail in the body of the report. 5. Scoliotic curvature of the lumbar spine. Approved by: Yousuf Zepeda M.D. on 07/27/2022 at 21:08
== END ==
PROVIDERS: PCP Physician Assistant; Referring Provider Orthopaedic Surgery Orthopaedic Surgery of the Spine; Visit Provider Orthopaedic Surgery Orthopaedic Surgery of the Spine
DX: M48.061 Spinal stenosis, lumbar region without neurogenic claudication (principal); M48.07 Spinal stenosis, lumbosacral region; Z98.1 Arthrodesis status
CPT/HCPCS: 72131

== ENCOUNTER → 2022-10-10 12:51 | Outpatient (CLI) | payer MEDICARE, OTHER, SELFPAY ==
[2022-06-05 14:57] VITALS: BMI 25.2
[2022-10-10 20:08] LABS: Add Manual Diff / Slide Review NO; Basophils Absolute Auto 0 /uL (0-100); Basophils Percent Auto 0.7 % (0-2); Eosinophils Absolute Auto 100 /uL (0-450); Eosinophils Percent Auto 0.9 % (2-4); Hematocrit 45.3 % (41-53); Hemoglobin 15.2 g/dL (13.5-17.5); Lymphocytes Absolute Auto 1500 /uL (1100-4500); Lymphocytes Percent Auto 22.6 % (25-40); Mean Corpuscular HGB Conc 33.6 % (30-36); Mean Corpuscular Hemoglobin 29.2 PG (26-34); Monocytes Absolute Auto 700 /uL (0-900); Monocytes Percent Auto 9.7 % (3-14); Neutrophils Absolute Auto 4500 /uL (1500-7000); Neutrophils Percent Auto 66.1 % (50-75); Platelet Count 178 X10^3/uL (150-400); White Blood Cell Count 6.8 X10^3/uL (4.5-11.0)
[2022-10-10 20:17] LABS: Alanine Aminotransferase 26 IU/L (<50); Albumin 4.4 g/dL (3.5-5.0); Albumin Globulin Ratio 1.3 (1.0-2.8); Alkaline Phosphatase 68 U/L (38-126); Aspartate Aminotransferase 33 IU/L (17-59); Bilirubin Total 0.7 mg/dL (0.2-1.3); Blood Urea Nitrogen 20 mg/dL (9-20); Calcium 9.2 mg/dL (8.4-10.2); Carbon Dioxide 27 mmol/L (22-32); Chloride 98 mmol/L (98-107); Creatine Kinase 62 U/L (55-170); Estimated Glomerular Filt Rate 57 mL/min (>60); Globulin 3.3 g/dL (1.7-4.1); Glucose 129 mg/dL (80-110); HEMOLYSIS < 15 (0-50); Potassium 4.8 mmol/L (3.4-5.1); Sodium 135 mmol/L (137-145); Total Protein 7.7 g/dL (6.3-8.2)
[2022-10-10 20:28] LABS: NT-proBNP (BNP-Adult 18+) 286 pg/mL (<450); Troponin I < 0.012 ng/mL (0.01-0.034)
[2022-10-10 20:46] LABS: Hemoglobin A1C% w Est Avg Glu 6.7 % (4.0-6.0)
[2022-10-10 21:12] LABS: TSH w/ Reflex to FT4 1.31 uIU/mL (0.47-4.68)
== END ==
PROVIDERS: PCP Physician Assistant; Visit Provider Physician Assistant
DX: I10 Essential (primary) hypertension (principal); Z86.2 Personal history of diseases of the blood and blood-forming organs and certain disorders involving the immune mechanism; I50.9 Heart failure, unspecified; R42 Dizziness and giddiness; R94.31 Abnormal electrocardiogram [ECG] [EKG]
CPT/HCPCS: 80053; 82550; 83036; 83880; 84443; 84484; 85025

== ENCOUNTER → 2022-10-17 14:12 | Outpatient (CLI) | payer MEDICARE, OTHER, SELFPAY ==
[2022-06-05 14:57] VITALS: BMI 25.2
[2022-10-17 20:01] LABS: Prostate Specific Antigen Scrn 2.71 ng/mL (0.1-4.0)
== END ==
PROVIDERS: PCP Physician Assistant; Visit Provider Physician Assistant
DX: Z12.5 Encounter for screening for malignant neoplasm of prostate (principal)
CPT/HCPCS: G0103

== ENCOUNTER → 2022-12-05 12:37 | Outpatient (CLI) | payer MEDICARE, OTHER, SELFPAY ==
[2022-06-05 14:57] VITALS: BMI 25.2
--- NOTE | 2022-12-05 12:38 | DI.MRI.S_ITS ---
PROCEDURE: MR HEAD/BRAIN WO/W CON INDICATIONS: Dizziness and memory loss TECHNIQUE: Noncontrast axial T1 spin echo, axial T2 fast spin echo, sagittal and axial FLAIR, coronal T2 fast spin echo, axial gradient echo, axial diffusion and ADC through the brain. After the administration of contrast, axial and coronal and sagittal T1 spin echo with fat saturation through the brain. COMPARISON: None. FINDINGS: Image quality: Excellent. CSF spaces: Basal cisterns are patent. No extra-axial fluid collections. Ventricles are normal in size and shape. Brain: No midline shift. No intracranial bleeds or masses. No abnormal intracranial enhancement. There is cerebral volume loss for age. There is periventricular white matter chronic small vessel ischemic change. The brainstem appears normal. Diffusion-weighted images demonstrate no acute ischemic insults. No chronic ischemic insults. Normal intravascular flow voids are present. Skull and face: Calvarial marrow is normal in signal. Orbits appear normal. Sinuses: Sinuses and mastoids appear clear. IMPRESSION: 1. Volume loss and small vessel ischemic disease. 2. No acute process. No recent infarct. Dictated by: Catracho Sims M.D. on 12/05/2022 at 14:05 Transcribed by: RADHA on 12/05/2022 at 14:06 Approved by: Catracho Sims M.D. on 12/05/2022 at 16:41
== END ==
PROVIDERS: PCP Physician Assistant; Referring Provider Family Medicine; Visit Provider Family Medicine
DX: R42 Dizziness and giddiness (principal); R41.9 Unspecified symptoms and signs involving cognitive functions and awareness; R41.3 Other amnesia
CPT/HCPCS: 70553; A9579

== ENCOUNTER → 2023-02-11 12:20 | Outpatient (CLI) | payer MEDICARE, OTHER, SELFPAY ==
[2022-06-05 14:57] VITALS: BMI 25.2
[2023-02-11 19:57] LABS: Add Manual Diff / Slide Review NO; Basophils Absolute Auto 0 /uL (0-100); Basophils Percent Auto 0.3 % (0-2); Eosinophils Absolute Auto 100 /uL (0-450); Eosinophils Percent Auto 1.9 % (2-4); Hematocrit 42.4 % (41-53); Hemoglobin 14.3 g/dL (13.5-17.5); Lymphocytes Absolute Auto 1300 /uL (1100-4500); Mean Corpuscular HGB Conc 33.8 % (30-36); Mean Corpuscular Hemoglobin 29.7 PG (26-34); Mean Corpuscular Volume 87.9 fL (80-100); Monocytes Absolute Auto 600 /uL (0-900); Monocytes Percent Auto 9.4 % (3-14); Neutrophils Absolute Auto 4600 /uL (1500-7000); Neutrophils Percent Auto 68.4 % (50-75); Platelet Count 198 X10^3/uL (150-400); Red Blood Cell Count 4.82 X10^6/uL (4.5-5.9); Red Cell Distribution Width 13.4 % (11.6-14.8); White Blood Cell Count 6.7 X10^3/uL (4.5-11.0)
[2023-02-11 20:07] LABS: Alanine Aminotransferase 21 IU/L (<50); Albumin Globulin Ratio 1.3 (1.0-2.8); Alkaline Phosphatase 108 U/L (38-126); Aspartate Aminotransferase 25 IU/L (17-59); BUN Creatinine Ratio 16.7 (6-22); Bilirubin Total 0.5 mg/dL (0.2-1.3); Blood Urea Nitrogen 15 mg/dL (9-20); Calcium 8.9 mg/dL (8.4-10.2); Carbon Dioxide 27 mmol/L (22-32); Chloride 100 mmol/L (98-107); Estimated Glomerular Filt Rate > 60 mL/min (>60); Glucose 147 mg/dL (80-110); HEMOLYSIS 23 (0-50); Potassium 4.6 mmol/L (3.4-5.1); Sodium 135 mmol/L (137-145)
[2023-02-11 20:41] LABS: TSH w/ Reflex to FT4 1.36 uIU/mL (0.47-4.68)
[2023-02-11 21:13] LABS: Folate 4.2 ng/mL (2.76-20.0); Vitamin B12 372 pg/mL (239-931)
[2023-02-14 02:03] LABS: x Labcorp Estim. Avg Glu (eAG) 134 mg/dL (.); x Labcorp Hemoglobin A1c 6.3 % (4.8-5.6)
== END ==
PROVIDERS: PCP Family Medicine; Visit Provider Family Medicine
DX: I10 Essential (primary) hypertension; E87.1 Hypo-osmolality and hyponatremia; R94.4 Abnormal results of kidney function studies; R41.9 Unspecified symptoms and signs involving cognitive functions and awareness; Z78.9 Other specified health status; E11.9 Type 2 diabetes mellitus without complications
CPT/HCPCS: 80053; 82607; 82746; 83036; 84443; 85025

== ENCOUNTER → 2023-03-20 11:04 | Outpatient (CLI) | payer MEDICARE, OTHER, SELFPAY ==
[2022-06-05 14:57] VITALS: BMI 25.2
[2023-03-20 20:21] LABS: Microalbumin Urine Random 2.3 mg/dL (0-1.6)
[2023-03-20 20:55] LABS: Creatinine Urine Random 434.3 mg/dL; Microalbumi Creatinin Ratio Ur 5.2 ug/mg CR (<30)
== END ==
PROVIDERS: PCP Family Medicine; Visit Provider Family Medicine
DX: E11.9 Type 2 diabetes mellitus without complications (principal)
CPT/HCPCS: 82043; 82570

== ENCOUNTER → 2023-07-11 10:23 | Outpatient (CLI) | payer MEDICARE, OTHER, SELFPAY ==
[2023-03-22 12:16] VITALS: BMI 25.2
[2023-07-11 21:12] LABS: Hemoglobin A1C% w Est Avg Glu 6.6 % (4.0-6.0)
[2023-07-11 21:14] LABS: Add Manual Diff / Slide Review NO; Alanine Aminotransferase 28 IU/L (<50); Albumin 3.9 g/dL (3.5-5.0); Albumin Globulin Ratio 1.4 (1.0-2.8); Alkaline Phosphatase 79 U/L (38-126); Aspartate Aminotransferase 28 IU/L (17-59); BUN Creatinine Ratio 15.1 (6-22); Basophils Absolute Auto 0 /uL (0-100); Basophils Percent Auto 0.7 % (0-2); Bilirubin Total 0.8 mg/dL (0.2-1.3); Blood Urea Nitrogen 13 mg/dL (9-20); Calcium 9.1 mg/dL (8.4-10.2); Carbon Dioxide 28 mmol/L (22-32); Chloride 100 mmol/L (98-107); Cholesterol 168 mg/dL (140-199); Eosinophils Absolute Auto 100 /uL (0-450); Eosinophils Percent Auto 1.3 % (2-4); Estimated Glomerular Filt Rate > 60 mL/min (>60); Globulin 2.8 g/dL (1.7-4.1); Glucose 173 mg/dL (80-110); HDL Cholesterol 40 mg/dL (40-60); HEMOLYSIS < 15 (0-50); Hematocrit 43.7 % (41-53); Hemoglobin 14.7 g/dL (13.5-17.5); LDL Cholesterol Calculated 83 mg/dL (<100); Lymphocytes Absolute Auto 1600 /uL (1100-4500); Lymphocytes Percent Auto 26.9 % (25-40); Mean Corpuscular HGB Conc 33.6 % (30-36); Mean Corpuscular Volume 89.2 fL (80-100); Monocytes Absolute Auto 500 /uL (0-900); Monocytes Percent Auto 8.9 % (3-14); Neutrophils Absolute Auto 3700 /uL (1500-7000); Neutrophils Percent Auto 62.2 % (50-75); Platelet Count 183 X10^3/uL (150-400); Potassium 4.4 mmol/L (3.4-5.1); Red Cell Distribution Width 13.1 % (11.6-14.8); Sodium 136 mmol/L (137-145); Total Protein 6.7 g/dL (6.3-8.2); Triglycerides 227 mg/dL (35-150)
== END ==
PROVIDERS: PCP Family Medicine; Visit Provider Family Medicine
DX: E11.9 Type 2 diabetes mellitus without complications (principal); I10 Essential (primary) hypertension; R42 Dizziness and giddiness; R94.4 Abnormal results of kidney function studies
CPT/HCPCS: 80053; 80061; 83036; 85025

== ENCOUNTER → 2023-12-27 10:30 | Outpatient (CLI) | payer MEDICARE, OTHER, SELFPAY ==
[2023-03-22 12:16] VITALS: BMI 25.2
[2023-12-27 19:17] LABS: Add Manual Diff / Slide Review NO; Basophils Absolute Auto 0 /uL (0-100); Basophils Percent Auto 0.4 % (0-2); Eosinophils Absolute Auto 100 /uL (0-450); Eosinophils Percent Auto 1.8 % (2-4); Hematocrit 43.6 % (41-53); Hemoglobin 14.5 g/dL (13.5-17.5); Lymphocytes Absolute Auto 1600 /uL (1100-4500); Lymphocytes Percent Auto 29.8 % (25-40); Mean Corpuscular HGB Conc 33.3 % (30-36); Mean Corpuscular Hemoglobin 29.8 PG (26-34); Mean Corpuscular Volume 89.3 fL (80-100); Monocytes Absolute Auto 500 /uL (0-900); Monocytes Percent Auto 9.3 % (3-14); Neutrophils Absolute Auto 3200 /uL (1500-7000); Neutrophils Percent Auto 58.7 % (50-75); Platelet Count 182 X10^3/uL (150-400); Red Blood Cell Count 4.88 X10^6/uL (4.5-5.9); Red Cell Distribution Width 12.7 % (11.6-14.8); White Blood Cell Count 5.5 X10^3/uL (4.5-11.0)
[2023-12-27 19:21] LABS: BUN Creatinine Ratio 11.8 (6-22); Blood Urea Nitrogen 11 mg/dL (9-20); C-Reactive Protein Quant < 0.5 mg/dL (<1.0); Calcium 8.6 mg/dL (8.4-10.2); Carbon Dioxide 26 mmol/L (22-32); Chloride 101 mmol/L (98-107); Estimated Glomerular Filt Rate > 60 mL/min (>60); Glucose 218 mg/dL (80-110); HEMOLYSIS 19 (0-50); Potassium 4.2 mmol/L (3.4-5.1); Sodium 136 mmol/L (137-145)
[2023-12-27 20:02] LABS: Erythrocyte Sedimentation Rate 4 MM/HR (0-15)
[2023-12-31 14:39] LABS: Albumin 3.6 g/dL (2.9-4.4); Alpha-1-Globulin 0.2 g/dL (0.0-0.4); Alpha-2-Globulin 0.7 g/dL (0.4-1.0); Gamma Globulin 1.3 g/dL (0.4-1.8); Globulin Total 3.2 g/dL (2.2-3.9); Protein, Total 6.8 g/dL (6.0-8.5)
[2023-12-31 20:11] LABS: Free Kappa Lt Chains, Serum 42.6 mg/L (3.3-19.4); Free Lambda Lt Chains,Serum 25.4 mg/L (5.7-26.3)
== END ==
PROVIDERS: PCP Family Medicine; Visit Provider Family Medicine
DX: E87.1 Hypo-osmolality and hyponatremia (principal); E11.9 Type 2 diabetes mellitus without complications; R94.4 Abnormal results of kidney function studies; I10 Essential (primary) hypertension; M54.9 Dorsalgia, unspecified
CPT/HCPCS: 80048; 83883; 84155; 84165; 85025; 85651; 86140

== ENCOUNTER → 2024-03-18 09:55 | Outpatient (CLI) | payer MEDICARE, OTHER, SELFPAY ==
[2023-03-22 12:16] VITALS: BMI 25.2
[2024-03-18 19:55] LABS: Add Manual Diff / Slide Review NO; Basophils Absolute Auto 100 /uL (0-100); Basophils Percent Auto 0.8 % (0-2); Eosinophils Absolute Auto 100 /uL (0-450); Hematocrit 45.2 % (41-53); Lymphocytes Absolute Auto 2300 /uL (1100-4500); Lymphocytes Percent Auto 31.5 % (25-40); Mean Corpuscular HGB Conc 33.1 % (30-36); Mean Corpuscular Hemoglobin 29.3 PG (26-34); Mean Corpuscular Volume 88.6 fL (80-100); Monocytes Absolute Auto 700 /uL (0-900); Monocytes Percent Auto 9.3 % (3-14); Neutrophils Absolute Auto 4200 /uL (1500-7000); Neutrophils Percent Auto 56.4 % (50-75); Platelet Count 215 X10^3/uL (150-400); White Blood Cell Count 7.4 X10^3/uL (4.5-11.0)
[2024-03-18 20:00] LABS: Alanine Aminotransferase 16 IU/L (<50); Albumin 4.1 g/dL (3.5-5.0); Albumin Globulin Ratio 1.5 (1.0-2.8); Alkaline Phosphatase 75 U/L (38-126); Aspartate Aminotransferase 25 IU/L (17-59); BUN Creatinine Ratio 13.9 (6-22); Bilirubin Total 0.8 mg/dL (0.2-1.3); Blood Urea Nitrogen 14 mg/dL (9-20); C-Reactive Protein Quant < 0.5 mg/dL (<1.0); Calcium 9.2 mg/dL (8.4-10.2); Carbon Dioxide 26 mmol/L (22-32); Chloride 103 mmol/L (98-107); Cholesterol 161 mg/dL (140-199); Estimated Glomerular Filt Rate > 60 mL/min (>60); Globulin 2.8 g/dL (1.7-4.1); Glucose 154 mg/dL (80-110); HDL Cholesterol 27 mg/dL (40-60); HEMOLYSIS < 15 (0-50); LDL Cholesterol Calculated 86 mg/dL (<100); Potassium 4.3 mmol/L (3.4-5.1); Sodium 137 mmol/L (137-145); Total Protein 6.9 g/dL (6.3-8.2); Triglycerides 241 mg/dL (35-150)
[2024-03-18 20:51] LABS: Erythrocyte Sedimentation Rate 6 MM/HR (0-15)
== END ==
PROVIDERS: PCP Family Medicine; Visit Provider Family Medicine
DX: R53.83 Other fatigue (principal); I10 Essential (primary) hypertension; E11.9 Type 2 diabetes mellitus without complications; F10.20 Alcohol dependence, uncomplicated; F51.04 Psychophysiologic insomnia; R76.8 Other specified abnormal immunological findings in serum
CPT/HCPCS: 80053; 80061; 83883; 85025; 85651; 86140

== ENCOUNTER → 2024-09-17 16:44 | Outpatient (CLI) | payer MEDICARE, OTHER, SELFPAY ==
[2023-03-22 12:16] VITALS: BMI 25.2
[2024-09-18 19:49] LABS: Creatinine Urine Random 82.39 mg/dL
[2024-09-18 19:55] LABS: Microalbumin Urine Random 3.5 mg/dL (0-1.6)
== END ==
PROVIDERS: PCP Family Medicine; Visit Provider Family Medicine
DX: E11.9 Type 2 diabetes mellitus without complications (principal)
CPT/HCPCS: 82043; 82570

== ENCOUNTER → 2024-09-22 14:07 | Outpatient (CLI) | payer MEDICARE, OTHER, SELFPAY ==
[2023-03-22 12:16] VITALS: BMI 25.2
[2024-09-22 19:19] LABS: HEMOLYSIS 21 (0-50); Iron 136 ug/dL (49-181)
[2024-09-22 19:28] LABS: Hematocrit 44.4 % (41-53); Hemoglobin 14.7 g/dL (13.5-17.5); Mean Corpuscular HGB Conc 33.2 % (30-36); Mean Corpuscular Hemoglobin 29.6 PG (26-34); Platelet Count 192 X10^3/uL (150-400); Red Blood Cell Count 4.99 X10^6/uL (4.5-5.9); Red Cell Distribution Width 13.3 % (11.6-14.8); White Blood Cell Count 6.3 X10^3/uL (4.5-11.0)
[2024-09-22 19:33] LABS: Alanine Aminotransferase 41 IU/L (<50); Albumin 4.4 g/dL (3.5-5.0); Albumin Globulin Ratio 1.6 (1.0-2.8); Alkaline Phosphatase 72 U/L (38-126); Aspartate Aminotransferase 42 IU/L (17-59); BUN Creatinine Ratio 15.5 (6-22); Bilirubin Total 0.8 mg/dL (0.2-1.3); Blood Urea Nitrogen 17 mg/dL (9-20); C-Reactive Protein Quant < 0.5 mg/dL (<1.0); Calcium 9.1 mg/dL (8.4-10.2); Carbon Dioxide 24 mmol/L (22-32); Chloride 99 mmol/L (98-107); Estimated Glomerular Filt Rate > 60 mL/min (>60); Globulin 2.7 g/dL (1.7-4.1); Glucose 166 mg/dL (80-110); HEMOLYSIS 16 (0-50); Percent Iron Saturation 55 % (20-50); Sodium 134 mmol/L (137-145); Total Iron Binding Capacity 248 ug/dL (261-462); Total Protein 7.1 g/dL (6.3-8.2); Transferrin 225 mg/dL (206-381)
[2024-09-22 19:39] LABS: Hemoglobin A1C% w Est Avg Glu 6.3 % (4.0-6.0)
[2024-09-22 19:51] LABS: Thyroid Stimulating Hormone 1.45 uIU/mL (0.47-4.68)
[2024-09-22 19:52] LABS: Erythrocyte Sedimentation Rate 4 MM/HR (0-15)
[2024-09-22 20:04] LABS: Ferritin 423 ng/mL (18-464)
[2024-09-22 20:13] LABS: Neutrophils Absolute Manual 4158 /uL (3000-5900); Total Cells Counted 100
[2024-09-22 20:14] LABS: RBC Morphology Normal Morphology
[2024-09-22 20:26] LABS: Folate 9.5 ng/mL (2.76-20.0); Vitamin B12 435 pg/mL (239-931)
[2024-09-25 15:40] LABS: Albumin 3.7 g/dL (2.9-4.4); Alpha-1-Globulin 0.3 g/dL (0.0-0.4); Alpha-2-Globulin 0.8 g/dL (0.4-1.0); Gamma Globulin 1.2 g/dL (0.4-1.8); Globulin Total 3.4 g/dL (2.2-3.9); Protein, Total 7.1 g/dL (6.0-8.5)
[2024-09-26 18:07] LABS: Free Kappa Lt Chains, Serum 46.9 mg/L (3.3-19.4); Free Lambda Lt Chains,Serum 23.8 mg/L (5.7-26.3)
== END ==
PROVIDERS: PCP Family Medicine; Visit Provider Family Medicine
DX: I11.0 Hypertensive heart disease with heart failure (principal); I50.20 Unspecified systolic (congestive) heart failure; E11.9 Type 2 diabetes mellitus without complications; R53.83 Other fatigue; Z12.5 Encounter for screening for malignant neoplasm of prostate; R76.8 Other specified abnormal immunological findings in serum; G47.00 Insomnia, unspecified; R05.9 Cough, unspecified; J32.9 Chronic sinusitis, unspecified; D64.9 Anemia, unspecified; F51.04 Psychophysiologic insomnia; F32.9 Major depressive disorder, single episode, unspecified; F10.20 Alcohol dependence, uncomplicated; M54.50 Low back pain, unspecified; G89.29 Other chronic pain
CPT/HCPCS: 80053; 82607; 82728; 82746; 83036; 83540; 83550; 83883; 84155; 84165; 84443; 85025; 85651; 86140; G0103

== ENCOUNTER → 2024-09-23 11:40 | Outpatient (CLI) | payer MEDICARE, OTHER, SELFPAY ==
[2023-03-22 12:16] VITALS: BMI 25.2
--- NOTE | 2024-09-23 11:42 | DI.MRI.S_ITS ---
PROCEDURE: MR LUMBAR SPINE WO/W CON INDICATIONS: worsening lumbar pain with vertebral tenderness TECHNIQUE: Noncontrast sagittal T1 spin echo and T2 fast spin echo, sagittal STIR, axial T1 and T2 fast spin echo through the lumbar spine. In cases with scoliosis, additional coronal T2 fast spin echo may be performed. After the administration of contrast, sagittal and axial T1 spin echo with fat saturation through the lumbar spine. COMPARISON: [facility] ([place]), CR, XR LUMBAR SPINE 2-3V, 09/17/2024, 16:34. [facility], CT, CT LUMBAR SPINE WO CON, 07/27/2022, 13:19. FINDINGS: Image quality: There is artifact associated with the metallic hardware. Alignment and curvature: Scoliosis is seen, with a primary dextroconvex thoracolumbar component. Marrow: Marrow is of normal overall signal. No acute vertebral body compression fractures. No suspicious marrow enhancement. Spinal cord: Conus medullaris terminates at the L1 level. Visualized spinal cord demonstrates normal signal, without suspicious enhancement. Paraspinous soft tissues: No paravertebral masses or abnormal enhancement. Postoperative change can be seen, with bilateral pedicle screws L3 through S1. Vertical fixation rods are seen. Disc spacers are seen at L3-L4 and L4-L5. There has been removal of portions of the posterior elements. Bone grafting material is noted. T12-L1: Moderate to severe loss of disc height and disc signal can be seen on the left side. Bridging endplate osteophytes can be seen on the left. Moderate disc bulge is seen, which is eccentric to the left. Mild to moderate facet hypertrophy is seen. There is moderate to severe left-sided neural foraminal narrowing, with a mild degree of compression upon the exiting left T12 nerve root. No significant right-sided neural foraminal narrowing is seen. Moderate central canal narrowing is seen. L1-L2: Moderate loss of disc height is seen. Loss of disc signal is seen. Bridging endplate osteophytes can be seen on the left. At least moderate disc bulge is seen, with a central disc osteophyte protrusion. At least moderate facet hypertrophy is seen. There is at least moderate right-sided and moderate to severe left-sided neural foraminal narrowing. There is a degree of compression seen upon the exiting nerve roots. Moderate to severe central canal narrowing is seen, as on series 7, image 6. L2-L3: Mild loss of disc height is seen. Loss of disc signal is seen. Moderate generalized disc bulge is seen. There is a central disc osteophyte protrusion. At least moderate facet hypertrophy is seen. Associated hypertrophy of the ligamentum flavum can be seen. There is moderate left-sided and at least moderate right-sided neural foraminal narrowing. Moderate to severe central canal narrowing is seen, as on series 7, image 10. L3-L4: There are postoperative changes seen at this level. Moderate disc bulge is seen, which is eccentric to the right. Bridging endplate osteophytes can be seen on the right, as on series 3, image 1. At least moderate facet hypertrophy can be seen. There is xwod-[id number] left-sided and at least moderate right-sided neural foraminal narrowing. Moderate central canal narrowing is seen. L4-L5: Postoperative change is seen at this level. Mild to moderate disc bulge is seen, with a central disc osteophyte protrusion. At least moderate facet hypertrophy can be seen at this level. Moderate bilateral neural foraminal narrowing is seen. Moderate central canal narrowing is seen. L5-S1: There is postoperative change at this level. Mild to moderate disc bulge is seen, with a central/left disc osteophyte protrusion. There is at least moderate right-sided and moderate to severe left-sided neural foraminal narrowing. There is a degree of compression seen upon the exiting nerve roots. Mild to moderate central canal narrowing is seen. IMPRESSION: L3 through S1 postoperative hardware. Dextroconvex scoliosis. Multiple levels of significant degenerative change can be seen. Dictated by: Kevan Lacey M.D. on 09/23/2024 at 15:57 Approved by: Kevan Lacey M.D. on 09/23/2024 at 16:03
--- NOTE | 2024-09-23 11:42 | DI.CT.S_ITS ---
PROCEDURE: CT CHEST WO CON INDICATIONS: chronic cough TECHNIQUE: Noncontrast 5 mm thick sections acquired from the pulmonary apices to the posterior costophrenic angles. 1 mm lung window, 5 mm thick coronal and sagittal and 7 mm axial MIP reformats were then acquired. For radiation dose reduction, the following was used: automated exposure control, adjustment of mA and/or kV according to patient size. COMPARISON: X-ray 09/17/2024 FINDINGS: Image quality: Diagnostic. Lower Neck: No enlarged lymph nodes. Thyroid: No thyroid nodules which require sonographic follow up, per consensus guidelines. Axillae: No enlarged lymph nodes. Chest Wall: Unremarkable. Bones: There is a moderate kyphosis and degenerative changes involving the thoracic spine Lungs and Pleura: There is a calcified granuloma in the right lung base. No suspicious infiltrates or nodules are identified. Heart: Heart size is normal. No pericardial effusion. There are coronary artery calcifications. Thoracic Vessels: The aorta and pulmonary arteries demonstrate normal size. Mediastinum and Yandy: No enlarged lymph nodes. Esophagus: No wall thickening. No hiatal hernia. Upper Abdomen: Visualized upper abdomen solid organs and bowel loops appear normal. Numerous splenic granulomas are present. IMPRESSION: No acute process. Old granulomatous disease. Dictated by: Loulou Lunsford M.D. on 09/23/2024 at 12:37 Approved by: Loulou Lunsford M.D. on 09/23/2024 at 13:15
== END ==
LOC: CT 11:41
PROVIDERS: PCP Family Medicine; Referring Provider Family Medicine; Visit Provider Family Medicine
DX: M47.814 Spondylosis without myelopathy or radiculopathy, thoracic region (principal); M40.204 Unspecified kyphosis, thoracic region; M47.816 Spondylosis without myelopathy or radiculopathy, lumbar region; M54.50 Low back pain, unspecified; R05.9 Cough, unspecified; I25.10 Atherosclerotic heart disease of native coronary artery without angina pectoris; G89.29 Other chronic pain; M48.061 Spinal stenosis, lumbar region without neurogenic claudication; D64.9 Anemia, unspecified; R76.8 Other specified abnormal immunological findings in serum; Z98.1 Arthrodesis status
CPT/HCPCS: 71250; 72158; A9579

== ENCOUNTER 2024-12-29 12:52 | Outpatient (CLI) | payer MEDICARE, OTHER, SELFPAY ==
[2024-10-05 15:49] VITALS: BMI 25.2
[2024-12-29] VITALS (8 sets, daily range): BP systolic 131–179; BP diastolic 71–92; PULSE 64–78; RESP 14–16; TEMP 36.8; O2SAT 96–100
[2024-12-29] MEDS: MIDAZOLAM 2 MG/2 ML VIAL IV (14:12)
[2024-12-29] MEDS: DEXAMETHASONE 10 MG/ML VIAL INJ (14:17)
[2024-12-29] MEDS: BUPIVACAINE 0.25% (PF) VIAL 2 ML INJ (14:18)
[2024-12-29] MEDS: iopamidoL 15 ML VIAL 3 ML INJ (14:19)
[2024-12-29] MEDS: BETAMETHASONE 30 MG/5 ML MDV 12 MG INJ (14:20)
--- NOTE | 2024-12-29 14:28 | PM.PROC.IR.1 ---
Date/Time/Diagnoses Date of procedure: 12/29/24 Time of procedure: 14:28 Pre-procedure diagnosis: 1. HNP WITH RADICULAR FEATURES, 2. MULTILEVEL CENTRAL STENOSIS, Post-procedure diagnosis: same Procedure Notes Procedure: 1. FLUOROSCOPICALLY GUIDED CONTRAST CONTROLLED INTERLAMINAR EPIDURAL STEROID INJECTION - L5/S1 Indications: Jong is referred by Dr. White for treatment of Bilateral Foraminal Stenosis L>R LE symptoms. Physician: Larry Nunez Total Fluoroscopy time (seconds): 11 Total sedation minutes: 11 Complications: none Procedure in detail & Post-procedure care: FINDINGS Multilevel Central Spinal Stenosis with Nerve Root Compression DESCRIPTION OF PROCEDURE Fluoroscopically guided, contrast-controlled L5/S1 translaminar epidural steroid injection. Following review of allergy and review of potential side effects and complications, including, but not necessarily limited to, infection, allergic reaction, local tissue breakdown, temporary as well as permanent nerve injury, paralysis, stroke and possible , the patient indicated that the patient understood and agreed to proceed. An informed consent document was signed by the patient, witnessed by a nurse, and placed in the patient's chart. Additionally, other treatment options including modalities, medications, and physical therapy were reviewed with the patient. After review of previous anaesthesic history and IV conscious sedation the patient was deemed safe to proceed with today?s procedure with IV conscious sedation as ASA class II designation. Safety time-out was performed to confirm patient ID, procedure to be performed and site of procedure. IV sedation was accomplished with a combination of 1mg of Versed administered by the RN after DO order, titrated to patient comfort during the course of the procedure while the patient remained responsive to all verbal commands. In the prone position, following sterile prep and drape of the lumbar region, the L5/S1 translaminar space was identified fluoroscopically. The skin was anesthetized via a 25-gauge, 1.5-inch needle with 1% lidocaine solution. At this point, a 22-gauge short bevel spinal needle was atraumatically introduced and advanced under fluoroscopic guidance into the region of the L5/S1 translaminar space. Depth was confirmed on lateral view. Radiological data, including multiple fluoroscopic views of the lumbar spine, reveal a spinal needle at the L5/S1 translaminar space. Lateral views then show placement of the needle in the epidural space. Subsequent views show contrast material flowing superiorly and inferiorly in the epidural space. No vascular or intrathecal uptake is observed. At this point, using loss of resistance technique with saline and air, the epidural space was entered. This was confirmed following negative aspiration with injection of approximately 1.5cc of Isovue 200, showing excellent epidural flow without vascular or intrathecal uptake. At this point, 1 cc of 1% lidocaine solution combined with 2cc or 10mg of dexamethasone and 6mg of betamethasone was injected without incident. The patent tolerated the procedure without signs of symptoms of complications prior to transfer to the recovery area for further monitoring. The patient was then transferred to the recovery area where they were observed for an appropriate period of time after the injection. The patient reported a VAS score of 6 prior to the procedure and a post-procedure VAS of 0. POST OP INSTRUCTIONS The patient was provided a Pain Log to continue to record their response to the target-specific procedure prior to follow-up visit with their referring physician. Additionally, specific post-injection care instructions and a contact number to our office were provided if concerns arise regarding possible complications associated with the procedure are suspected.
== END 2024-12-29 14:45 | disposition home or self-care (01) ==
LOC: RAD 12:58
PROVIDERS: PCP Family Medicine; Referring Provider Physical Medicine & Rehabilitation; Visit Provider Physical Medicine & Rehabilitation
DX: M54.16 Radiculopathy, lumbar region (principal); M48.061 Spinal stenosis, lumbar region without neurogenic claudication
CPT/HCPCS: 62323; 99152; J0702; J1100; J2250; J3490

== ENCOUNTER 2025-03-09 12:39 | Outpatient (CLI) | payer MEDICARE, OTHER, SELFPAY ==
[2024-10-05 15:49] VITALS: BMI 25.2
[2025-03-09] VITALS (7 sets, daily range): BP systolic 130–152; BP diastolic 74–99; PULSE 73–92; RESP 12–16; TEMP 36.1; O2SAT 96–98
--- NOTE | 2025-03-09 13:29 | DI.RAD.S_ITS ---
PROCEDURE: PAIN SI JOINT INJECTION MENA INDICATIONS: Bilateral SI joint injection COMPARISON: None. FINDINGS/IMPRESSION: Fluoroscopic spot filming was performed to verify placement of spinal needles at the sacroiliac joints as labeled on the films. Appropriate location(s) of the needle tip(s) was confirmed by injection of iodinated contrast. Lower lumbar fusion hardware is partially seen. Dictated by: Munir Miller M.D. on 03/10/2025 at 7:23 Approved by: Munir Miller M.D. on 03/10/2025 at 7:24
[2025-03-09] MEDS: MIDAZOLAM 2 MG/2 ML VIAL IV (13:39)
[2025-03-09] MEDS: BETAMETHASONE 30 MG/5 ML MDV 12 MG INJ (13:44)
[2025-03-09] MEDS: BUPIVACAINE 0.5% (PF) 10 ML VIAL 5 ML INJ (13:44)
[2025-03-09] MEDS: BETAMETHASONE 30 MG/5 ML MDV 6 MG INJ (13:45)
--- NOTE | 2025-03-09 13:56 | PM.PROC.IR.1 ---
Date/Time/Diagnoses Date of procedure: 03/09/25 Time of procedure: 13:56 Pre-procedure diagnosis: Sacroiliac joint pain/DJD Post-procedure diagnosis: same Procedure Notes Procedure: Fluoroscopic guided contrast controlled bilateral sacroiliac joint injection Indications: Jong is referred by Dr. White for treatment of bilateral sacroiliac joint DJD Physician: Larry Nunez Total Fluoroscopy time (seconds): 16 Total sedation minutes: 16 Complications: none Procedure in detail & Post-procedure care: Description of procedure Fluoroscopic guided, contrast controlled bilateral sacroiliac joint injection Following review of allergies and review of potential side effects and complications, including, but not necessarily limited to, infection, allergic reaction, local tissue breakdown, temporary as well as permanent nerve injury, paralysis, stroke and possible , the patient indicated that they understood and agreed to proceed. An informed consent was signed by the patient, witnessed by a nurse, and placed in the patient's chart. Additionally, other treatment options including modalities, medications, and physical therapy were reviewed with the patient. After review of previous anaesthesic history and IV conscious sedation the patient was deemed safe to proceed with today?s procedure with IV conscious sedation as ASA class II designation. Safety time-out was performed to confirm patient ID, procedure to be performed and site of procedure. IV sedation was accomplished with a combination of 2mg Versed were administered by the RN after DO order, titrated to patient comfort during the course of the procedure while the patient remained responsive to all verbal commands In the prone position following sterile prep and drape of the pelvic region, the hyper lucency on in the inferior aspect of the sacroiliac joint was identified fluoroscopically the skin was anesthetized be a 25 gauge 1.5 inch needle with approximately 2cc of 1% lidocaine solution. At this point, a 22 gauge 3 in spinal needle was atraumatically introduced and advanced under fluoroscopic guidance into the inferior aspect of the right sacroiliac joint. Following negative aspiration, approximately 0.3cc of Isovue-300 was injected confirming intra-articular placement without vascular uptake. Radiographic data, including multiple fluoroscopic views of the pelvis, reveals a spinal needle in the sacroiliac joint hyper lucent zone. Subsequent view show flow contrast tear superiorly and inferiorly within the joint capsule without vascular intrathecal uptake. At this point a total of 1cc of 0.5% Marcaine was combined with 1cc of 6mg of betamethasone was injected without incident. Attention was then refocused the left sacroiliac joint where the procedure was replicated. The procedure tolerated the procedure well without signs or symptoms of complications prior to transfer to the recovery area continued monitoring without incident. The patient was then transferred to the recovery area with a bur observed for an appropriate time after the injection. The patient reverted a vas score of 7 prior to the procedure and post-procedure vas of 1. Postop instructions The patient was provided with a pain like to continue to record the patient's response to the target specific procedure prior to the patient's follow-up visit with the referring physician. Additionally, specific post injection care instructions and a contact number to our office were provided if concerns arise regarding the possible complications associated with procedure are suspected.
== END 2025-03-09 14:10 | disposition home or self-care (01) ==
PROVIDERS: PCP Family Medicine; Referring Provider Physical Medicine & Rehabilitation; Visit Provider Physical Medicine & Rehabilitation
DX: M46.1 Sacroiliitis, not elsewhere classified (principal); M53.3 Sacrococcygeal disorders, not elsewhere classified
CPT/HCPCS: 27096; 99152; J0702; J2250

== ENCOUNTER 2025-07-06 17:19 | Inpatient (IN) | payer MEDICARE, OTHER, SELFPAY ==
[2024-10-05 15:49] VITALS: BMI 25.2
[2025-07-06] VITALS (19 sets, daily range): BP systolic 157–191; BP diastolic 69–90; PULSE 79–98; RESP 16–31; TEMP 36.8–37.5; O2SAT 90–98; BMI 56.9
--- NOTE | 2025-07-06 17:28 | DI.CT.S_ITS ---
PROCEDURE: CT ABDOMEN PELVIS W CON INDICATIONS: rlq abd pain TECHNIQUE: After the administration of intravenous contrast, axial sections acquired from the lung bases to the pubic symphysis. Coronal and sagittal reformats were performed. For radiation dose reduction, the following was used: automated exposure control, adjustment of mA and/or kV according to patient size. COMPARISON: None. FINDINGS: Image quality: Diagnostic. Lower Chest: Cardiomegaly. Three-vessel coronary calcifications and valvular calcifications. Bibasilar atelectasis. ABDOMEN: Liver: No solid mass. Gallbladder: Focal gallbladder wall thickening. Pericholecystic edema. Gallstones. Gallbladder hydrops. Biliary ducts: No biliary dilation. Pancreas: No ductal dilation. Spleen: Size is within normal limits. Calcified granuloma. Adrenal Glands: No adrenal nodules. Kidneys and Ureters: No hydronephrosis. No solid mass. No complex renal cystic lesion which requires follow up. Stomach and Bowel: Normal colonic caliber, without significant wall thickening. Colonic diverticulosis without evidence of diverticulitis. Peritoneum: Moderate volume free fluid, reactive. Ventral Wall: No significant ventral hernia. Abdominal Nodes: No retroperitoneal or mesenteric adenopathy by size criteria. Vessels: Aorta and inferior vena cava are normal in size. PELVIS: Pelvic Organs: Unremarkable. Bladder: Diffuse bladder wall thickening. Submucosal fat deposition consistent with chronic inflammatory change. Pelvic Nodes: No enlarged lymph nodes. Miscellaneous: No inguinal hernias are seen. Bones: No aggressive osseous abnormality. S-shape scoliosis with extensive degenerative disease. Surgical fusion of the lower lumbosacral spine. IMPRESSION: Acute cholecystitis. No evidence of choledocholithiasis or acute pancreatitis. Colonic diverticulosis without evidence of diverticulitis. Diffuse bladder wall thickening, which may indicate chronic outlet obstruction versus cystitis. Correlate with urinalysis. Dictated by: Ben Lipscomb M.D. on 07/06/2025 at 18:01 Approved by: Ben Lipscomb M.D. on 07/06/2025 at 18:04
[2025-07-06 17:48] LABS: Add Manual Diff / Slide Review NO; Hematocrit 44.3 % (41-53); Hemoglobin 14.9 g/dL (13.5-17.5); Lymphocytes Absolute Auto 300 /uL (1100-4500); Mean Corpuscular HGB Conc 33.8 % (30-36); Mean Corpuscular Hemoglobin 29.2 PG (26-34); Mean Corpuscular Volume 86.4 fL (80-100); Platelet Count 184 X10^3/uL (150-400)
[2025-07-06] MEDS: SODIUM CHLORIDE 0.9% 1,000 ML 1000 ML IV ×2 (17:54→21:31)
--- NOTE | 2025-07-06 17:57 | EKG_ITS ---
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
[2025-07-06 17:59] LABS: Alanine Aminotransferase 31 IU/L (<50); Albumin 4.5 g/dL (3.5-5.0); Albumin Globulin Ratio 1.4 (1.0-2.8); Alkaline Phosphatase 83 U/L (38-126); Blood Urea Nitrogen 15 mg/dL (9-20); Calcium 9.3 mg/dL (8.4-10.2); Carbon Dioxide 24 mmol/L (22-32); Chloride 93 mmol/L (98-107); Estimated Glomerular Filt Rate > 60 mL/min (>60); Globulin 3.3 g/dL (1.7-4.1); Glucose 220 mg/dL (70-99); HEMOLYSIS 32 (0-50); Potassium 4.0 mmol/L (3.4-5.1); Sodium 130 mmol/L (137-145); Total Protein 7.8 g/dL (6.3-8.2)
[2025-07-06 18:14] LABS: Lipase 266 U/L (23-300)
--- NOTE | 2025-07-06 18:53 | ED_ITS ---
HPI - Abdominal Pain General Chief Complaint: Abdominal Pain Stated Complaint: lower abd pain Time Seen by Provider: 07/06/25 17:30 Source: patient Mode of arrival: EMS History of Present Illness HPI narrative: 85-year-old male brought by air ambulance from [facility]. Has had right- sided abdominal pain beginning about midnight last night. It is accompanied by nausea and vomiting he has not had any diarrhea he has not had any fevers. Patient has a history of atrial fibrillation reportedly was in AFib with a controlled rate and hypertensive EN route. Patient denies urinary symptoms. Not having chest pain or shortness of breath. Related Data Home Medications ?Medication ?Instructions ?Recorded ?Confirmed metoprolol tartrate 50 mg tablet 25 mg PO DAILY 07/06/25 Previous Rx's ?Medication ?Instructions ?Recorded amlodipine 5 mg tablet 5 mg PO DAILY #90 tabs 10/30 fluticasone propionate 50 1 spray intranasal BID #16 g monty 06/04/24 mcg/actuation nasal spray,suspension (Allergy Relief (fluticasone)) meloxicam 7.5 mg tablet 15 mg (2 x 7.5 mg) PO QAM fo r pain 11/27/24 Held on 02/05/25. if needed #180 tabs Instructions: Home Medication placed on hold at Doctor's office azelastine 137 mcg (0.1 %) nasal 2 spray intranasal BI D #30 mL 01/19/25 spray ipratropium bromide 21 mcg (0.03 2 spray intranasal TI D for 01/19/25 %) nasal spray drainage or congestion #30 m L tramadol 50 mg tablet 50 mg PO BID PRN pain #42 ta bs 02/05/25 Allergies Allergy/AdvReac Type Severity Reaction Status Date / Time No Known Drug Allergies Allergy Verified 07/06/25 17:42 Patient History Medical History (Updated 07/06/25 @ 18:35 by Rj Andres MD) Sacral dysfunction Scarring Depression (~2001) Fragile skin Hip pain, bilateral Knee pain, bilateral Neck pain Arthritis PVC's (premature ventricular contractions) Pneumonia Diverticulosis Thoracogenic scoliosis, thoracolumbar region Chronic low back pain Diverticulitis LBBB (left bundle branch block) Chest pain HTN (hypertension) Hyperlipidemia Arrhythmia Surgical History History of lumbar spinal fusion (10/29/18) History of fusion of lumbar spine (10/10/18) Hx of tonsillectomy Hx of hernia repair History of lumbar fusion (~2006) Hx of shoulder surgery (~2004) Social History household members: none Smoking Status: Never smoker alcohol intake: current additional social history: son with new dx of metastatic prostate cancer. 06/2023 Patient was recently able to adopt REBEKAH THE CAT to replace REBEKAH the cat who 04/2023 2 large cocktails every night. used to drink more. [facility] 02/2023 Smoking Status: Never smoker alcohol intake frequency: 3 or more drinks per day Exam Narrative Exam Narrative: Pleasant gentleman alert and oriented appears to be in no distress vital signs reviewed and reassuring. Normocephalic and atraumatic oral mucosa is moist Neck is supple Lungs are clear Cardiac irregularly irregular with no murmur or gallop Has been normal bowel sounds soft tender in the right upper quadrant with guarding. He is alert oriented moving all 4 extremities spontaneously and equally. Initial Vital Signs Initial Vital Signs: Vital Signs Blood Pressure 165/88 H 07/06/25 17:25 Course Orders Ordered: ED Orders 07/06/25 17:25 Complete Blood Count AUTO DIFF Stat Comprehensive Metabolic Panel Stat Lipase Stat Urine Culture Stat Urine Microscopic Stat 07/06/25 17:27 EKG-12 Lead Stat 07/06/25 17:28 CT abdomen pelvis w con Stat 07/06/25 18:32 Consult to General Surgery Stat 07/06/25 19:24 Lactate (Lactic Acid) Stat 07/06/25 19:32 Blood Culture Stat 07/06/25 20:12 Consult to Physician Routine 07/07/25 05:00 Complete Blood Count AUTO DIFF DAILY Comprehensive Metabolic Panel DAILY Acetaminophen (Acetaminophen 325 Mg Tablet) 650 mg PO Q6H PRN PRN Reason: Fever/Mild Pain (1-3) Hydrocodone Bitart/Acetaminophen (Hydrocodone/Acet 5/325 Tablet) 1 tab PO Q4H PRN PRN Reason: Pain, Moderate (4-6) Fluticasone Propionate (Fluticasone 120 Blanchard/16 Gm Blanchard.Susp) 1 spray NASAL BID JAUN Sodium Chloride (Normal Saline 0.9%) 1,000 mls @ 100 mls/hr IV CONT JAUN Metoprolol Tartrate (Metoprolol Ir 50 Mg Tablet) 25 mg PO DAILY JAUN Morphine Sulfate (Morphine 4 Mg/Ml Inj) 2 mg IV Q3HR PRN PRN Reason: Pain, Severe (7-10) Naloxone HCl (Naloxone 0.4 Mg/Ml Vial) 0.2 mg IV Q2MIN PRN PRN Reason: Opiate Reversal Ondansetron HCl (Ondansetron 4 Mg/2 Ml Inj) 4 mg IV Q8HR PRN PRN Reason: Nausea And Vomiting Sennosides (Sennosides 8.6 Mg Tablet) 17.2 mg PO BEDTIME JAUN Discontinued Medications Hydromorphone HCl (Hydromorphone 1 Mg/Ml Syringe) 0.5 mg IV NOW ONE Stop: 07/06/25 20:09 Last Admin: 07/06/25 20:42 Dose: 0.5 mg Documented By: MATTHEW Sodium Chloride (Normal Saline 0.9%) 1,000 mls @ 1,000 mls/hr IV BOLUS ONE Stop: 07/06/25 18:26 Last Infusion: 07/06/25 19:59 Dose: Infused Documented By: Admin: 07/06/25 17:54 Dose: 1,000 mls/hr Documented By: CALVIN Ceftriaxone Sodium 2,000 mg/ (Sodium Chloride) 100 mls @ 200 mls/hr IV NOW ONE Stop: 07/06/25 18:33 Last Infusion: 07/06/25 20:37 Dose: Infused Documented By: Admin: 07/06/25 19:46 Dose: 200 mls/hr Documented By: RENEE Metronidazole (Flagyl) 500 mg in 100 mls @ 100 mls/hr IV NOW ONE Stop: 07/06/25 19:31 Last Admin: 07/06/25 20:36 Dose: 100 mls/hr Documented By: MATTHEW Sodium Chloride (Normal Saline 0.9%) 1,000 mls @ 1,000 mls/hr IV BOLUS ONE Stop: 07/06/25 21:07 Last Admin: 07/06/25 21:31 Dose: 1,000 mls/hr Documented By: MATTHEW Consultations Consultation #1: Discussed with general surgery, Dr. Bain, will consult, would like hospitalist to admit. Consultation #2: Discussed with hospitalist, Dr. Matthew at 8:00 p.m., accepts admission Vital Signs Vital signs: Vital Signs - 8 hr 07/06/25 17:25 07/06/25 17:26 07/06/25 17:30 Temperature 99.5 F Pulse Rate 98 H 85 Respiratory Rate 22 20 Blood Pressure 165/88 H 165/88 H Pulse Oximetry 93 98 Oxygen Delivery Method Room Air 07/06/25 17:30 07/06/25 17:53 07/06/25 17:53 Temperature Pulse Rate 98 H 98 H Respiratory Rate 16 22 Blood Pressure 191/87 H Pulse Oximetry 92 95 Oxygen Delivery Method 07/06/25 18:00 07/06/25 18:00 07/06/25 18:30 Temperature Pulse Rate 89 Respiratory Rate 21 Blood Pressure 179/89 H 170/90 H Pulse Oximetry 93 Oxygen Delivery Method 07/06/25 18:30 07/06/25 19:00 07/06/25 19:30 Temperature 98.3 F Pulse Rate 90 87 89 Respiratory Rate 22 18 22 Blood Pressure Pulse Oximetry 94 94 92 Oxygen Delivery Method 07/06/25 19:56 07/06/25 19:56 07/06/25 20:00 Temperature Pulse Rate 91 H 89 Respiratory Rate 19 21 Blood Pressure 164/79 H Pulse Oximetry 94 94 Oxygen Delivery Method 07/06/25 20:00 Temperature Pulse Rate Respiratory Rate Blood Pressure 178/81 H Pulse Oximetry Oxygen Delivery Method MDM - Abdominal Pain Lab Data Lab results narrative: [place] a [place] [address]. Glucose is elevated at 220, bilirubin minimally elevated at 1.6. Lipase is normal urinalysis is unremarkable 07/06/25 17:25 07/06/25 17:25 Labs: Lab Results 07/06/25 07/06/25 Range/Units 17:25 19:24 WBC 18.7 H (4.5-11.0) X10^3/uL RBC 5.12 (4.5-5.9) X10^6/uL Hgb 14.9 (13.5-17.5) g/dL Hct 44.3 (41-53) % MCV 86.4 (80-100) fL MCH 29.2 (26-34) PG MCHC 33.8 (30-36) % RDW 13.3 (11.6-14.8) % Plt Count 184 (150-400) X10^3/uL Neut % (Auto) 92.0 H (50-75) % Lymph % (Auto) 1.7 L (25-40) % [place] % (Auto) 6.1 (3-14) % Eos % (Auto) 0.0 L (2-4) % Baso % (Auto) 0.2 (0-2) % Neut # (Auto) 41660 H (5653-9532) /uL Lymph # (Auto) 300 L (0152-9782) /uL [place] # (Auto) 1100 H (0-900) /uL Eos # (Auto) 0 (0-450) /uL Baso # (Auto) 0 (0-100) /uL Sodium 130 L (137-145) mmol/L Potassium 4.0 (3.4-5.1) mmol/L Chloride 93 L (98-107) mmol/L Carbon Dioxide 24 (22-32) mmol/L BUN 15 (9-20) mg/dL Creatinine 0.69 (0.66-1.25) mg/dL Estimated GFR > 60 (>60) mL/min BUN/Creatinine Ratio 21.7 (6-22) Glucose 220 H (70-99) mg/dL Lactate 2.6 H (0.7-2.1) mmol/L Calcium 9.3 (8.4-10.2) mg/dL Total Bilirubin 1.6 H (0.2-1.3) mg/dL AST 53 (17-59) IU/L ALT 31 (<50) IU/L Alkaline Phosphatase 83 (38-126) U/L Total Protein 7.8 (6.3-8.2) g/dL Albumin 4.5 (3.5-5.0) g/dL Globulin 3.3 (1.7-4.1) g/dL Albumin/Globulin Ratio 1.4 (1.0-2.8) Lipase 266 (23-300) U/L Urine RBC 0-1/hpf (0-5/HPF) Urine WBC 0-1/hpf (0-5/HPF) Ur Squamous Epith Cells 0-1 /hpf (0-5/HPF) Urine Bacteria Occasional (0-1) (None) Urine Mucus 1+ H (Negative) Vol Urine Centrifuged 10ml (spun) Point of care testing: Urine Dip Bedside Urine Glucose 250 mg/dl Bedside Urine Bilirubin - Negative Bedside Urine Ketone +/- 5 Urine Specific [place] 1.015 Bedside Urine Occult Blood + Bedside Urine pH 6.0 Bedside Urine Protein ++ 100 Bedside Urine Urobilinogen +/- 1mg Bedside Urine Nitrite - Negative Bedside Urine Leukocytes - Negative Esterase Imaging Data CT scan - abdomen/pelvis: My Impression: Independently viewed CT abdomen and pelvis, patient appears to have acute cholecystitis. Radiologist's Impression: [address] [address] [address] Scan Report Signed Patient: Jong Perry MR#: [id number] : 1940 Acct:[id number] Age/Sex: 85 / M Date of Service: 07/06/25 Loc: ED Accession Number: [id number] Procedure: CT abdomen pelvis w con Ordering Provider: Rj Andres MD PROCEDURE: CT ABDOMEN PELVIS W CON INDICATIONS: rlq abd pain TECHNIQUE: After the administration of intravenous contrast, axial sections acquired from the lung bases to the pubic symphysis. Coronal and sagittal reformats were performed. For radiation dose reduction, the following was used: automated exposure control, adjustment of mA and/or kV according to patient size. COMPARISON: None. FINDINGS: Image quality: Diagnostic. Lower Chest: Cardiomegaly. Three-vessel coronary calcifications and valvular calcifications. Bibasilar atelectasis. ABDOMEN: Liver: No solid mass. Gallbladder: Focal gallbladder wall thickening. Pericholecystic edema. Gallstones. Gallbladder hydrops. Biliary ducts: No biliary dilation. Pancreas: No ductal dilation. Spleen: Size is within normal limits. Calcified granuloma. Adrenal Glands: No adrenal nodules. Kidneys and Ureters: No hydronephrosis. No solid mass. No complex renal cystic lesion which requires follow up. Stomach and Bowel: Normal colonic caliber, without significant wall thickening. Colonic diverticulosis without evidence of diverticulitis. Peritoneum: Moderate volume free fluid, reactive. Ventral Wall: No significant ventral hernia. Abdominal Nodes: No retroperitoneal or mesenteric adenopathy by size criteria. Vessels: Aorta and inferior vena cava are normal in size. PELVIS: Pelvic Organs: Unremarkable. Bladder: Diffuse bladder wall thickening. Submucosal fat deposition consistent with chronic inflammatory change. Pelvic Nodes: No enlarged lymph nodes. Miscellaneous: No inguinal hernias are seen. Bones: No aggressive osseous abnormality. S-shape scoliosis with extensive degenerative disease. Surgical fusion of the lower lumbosacral spine. IMPRESSION: Acute cholecystitis. No evidence of choledocholithiasis or acute pancreatitis. Colonic diverticulosis without evidence of diverticulitis. Diffuse bladder wall thickening, which may indicate chronic outlet obstruction versus cystitis. Correlate with urinalysis. Dictated by: Bne Lipscomb M.D. on 07/06/2025 at 18:01 Approved by: Ben Lipscomb M.D. on 07/06/2025 at 18:04 ECG Data Attestation: I personally reviewed and interpreted this ECG as follows: (Atrial fibrillation ventricular rate is 86 there are occasional PVCs there is a left bundle-branch blocks) Prior ECG tracings: not available for review MDM Narrative Medical decision making narrative: 85-year-old male brought in with right-sided abdominal pain. Differential diagnosis includes but is not limited to appendicitis, cholecystitis, pancreatitis, bowel obstruction, pyelonephritis or ureteral stone. Workup shows cholecystitis and he has a leukocytosis. He is hemodynamically stable. He was started on ceftriaxone and metronidazole. General surgery was consulted and we will see the patient, patient is admitted to the hospitalist service. Patient has known atrial fibrillation. He is not presently anticoagulated his rate is controlled, I will defer further consideration of anticoagulation to the hospitalist service given patient's impending need for surgery. Discharge Plan Departure Patient Disposition: Admitted As Inpatient Clinical Impression: Cholecystitis Admit Date/Time: 07/06/25 20:08 Admit Provider: Syd Matthew
[2025-07-06] MEDS: cefTRIAXone 2,000 MG in SODIUM CHLORIDE 0.9% 100 ML 200 MG IV (19:46)
[2025-07-06 19:53] LABS: Lactate (Lactic Acid) 2.6 mmol/L (0.7-2.1)
[2025-07-06] MEDS: metroNIDAZOLE 500 MG/100 ML PIGGYBACK 100 MG IV (20:36)
[2025-07-06 21:12] LABS: Reflexed Lactate in 2 Hours Y
[2025-07-06 21:53] LABS: Lactate 2HR (Lactic Acid Rflx) 2.3 mmol/L (0.7-2.1)
[2025-07-07] VITALS (17 sets, daily range): BP systolic 100–155; BP diastolic 51–98; PULSE 72–90; RESP 14–21; TEMP 36.2–37; O2SAT 92–97; BMI 25.7
--- NOTE | 2025-07-07 | PATH_ITS ---
[facility] Accession Number: [id number] No. of containers..01 Tissue . 01 Material submitted: . gallbladder - GALLBLADDER . 01 Diagnosis: GALLBLADDER: Acute, chronic, and gangrenous cholecystitis and cholelithiasis. Nonspecific serosal adhesions. No well-preserved epithelium present for evaluation at the cystic duct margin; gangrenous tissue changes present. LYK 07/19/2025 1718 Local . 01 Electronically signed: . Denise Barnett MD, Pathologist NPI- [id number] . 01 Gross description: . Received in formalin labeled with two patient identifiers and gallbladder, is a markedly bile-stained, collapsed, dusky gallbladder, 11.0 x 6.0 x 4.5 cm. The serosa is green-brown, dusky, focally shaggy, focally hemorrhagic with adhesions. The cystic duct is clipped, and shows a 0.1 cm in diameter lumen. The cystic duct is inked blue, and sectioning shows green granular and denuded mucosa. The lumen is filled with numerous black, markedly fragmented calculi that fills 50% of the lumen. The gallbladder wall is markedly edematous, bile stained, dusky, and thickened up to 1.0 cm. No pericystic lymph node is grossly identified. [employer] sections to include the cystic duct margin and area representative gallbladder wall are submitted in cassettes A1-A2. ([id number]) /TC 07/10/2025 190 Local . 01 Pathologist provided ICD-10: K81.2 . 01 CPT . 722268 Specimen Comment: A courtesy copy of this report has been sent to [phone] Performed at: [address] [id number] MD Andre Vogt MD Phone: [phone]
[2025-07-07] MEDS: MORPHINE 4 MG/ML INJ 2 MG IV ×2 (00:14→06:09)
[2025-07-07] MEDS: ONDANSETRON 4 MG/2 ML INJ IV ×3 (00:14→14:30)
--- NOTE | 2025-07-07 01:18 | SUR.HOLD ---
Addendum entered by Fior Denise RN 07/07/25 16:45: Pre-op holding time documented from Hattie Valdivia for cancelled surgery In to pre-op 0034. See note below for cancellation. Original Note: After discussion with surgeon and anesthesia, surgery postponed due to no recent cardiac records and a history of Afib and EF of 45%. Dr Bain explaining events to patient. Patient v/u. Report given to inpatient nurse KALIN Casarez
--- NOTE | 2025-07-07 01:26 | P.CONS_ITS ---
History of Present Illness Consult details Date Patient Seen: 07/07/25 Time Patient Seen: 01:26 Chief complaint: lower abd pain Reason for consult: Acute cholecystitis Requesting provider: Aj Bain Narrative: Surgery consult requested by ED for 85yo M with acute cholecystitis. Flown by air ambulance from [facility]. CT scan demonstrates gallstones, wall thickening, pericholecystic fluid, hydrops. WBC 18.7, total bili 1.6, other LFTs normal. Patient feeling better after pain meds, anti-emetics and IV antibiotics. Patient with h/o CHF, previous ECHO with EF 40%. Sees Dr. Campos at [facility]. H/O afib, not on thinners. Patient has DNR order. Meds Home Medications and Allergies Home Medications ?Medication ?Instructions ?Recorded ?Confirmed ?Type metoprolol tartrate 50 mg tablet 25 mg PO DAILY 07/06/25 History amlodipine 5 mg tablet 5 mg PO DAILY #90 tabs 10/3007/06/25 Rx fluticasone propionate 50 1 spray intranasal BID #16 g monty 06/04/24 07/06/25 Rx mcg/actuation nasal spray,suspension (Allergy Relief (fluticasone)) meloxicam 7.5 mg tablet 15 mg (2 x 7.5 mg) PO QAM fo r pain 11/27/24 07/06/25 Rx Held on 02/05/25. if needed #180 tabs Instructions: Home Medication placed on hold at Doctor's office azelastine 137 mcg (0.1 %) nasal 2 spray intranasal BI D #30 mL 01/19/25 07/06/25 Rx spray ipratropium bromide 21 mcg (0.03 2 spray intranasal TI D for 01/19/25 07/06/25 Rx %) nasal spray drainage or congestion #30 m L tramadol 50 mg tablet 50 mg PO BID PRN pain #42 ta bs 02/05/25 07/06/25 Rx Allergies Allergy/AdvReac Type Severity Reaction Status Date / Time No Known Drug Allergies Allergy Verified 07/06/25 17:42 Exam Vital Signs (past 8 hours): - 07/06/25 17:30 07/06/25 17:30 07/06/25 17:53 Temperature 99.5 F Pulse Rate 85 98 H 98 H Respiratory Rate 20 16 22 Blood Pressure 165/88 H Pulse Oximetry 98 92 95 Oxygen Delivery Method Room Air 07/06/25 17:53 07/06/25 18:00 07/06/25 18:00 Temperature Pulse Rate 89 Respiratory Rate 21 Blood Pressure 191/87 H 179/89 H Pulse Oximetry 93 Oxygen Delivery Method 07/06/25 18:30 07/06/25 18:30 07/06/25 19:00 Temperature Pulse Rate 90 87 Respiratory Rate 22 18 Blood Pressure 170/90 H Pulse Oximetry 94 94 Oxygen Delivery Method 07/06/25 19:30 07/06/25 19:56 07/06/25 19:56 Temperature 98.3 F Pulse Rate 89 91 H Respiratory Rate 22 19 Blood Pressure 164/79 H Pulse Oximetry 92 94 Oxygen Delivery Method 07/06/25 20:00 07/06/25 20:00 07/06/25 20:30 Temperature Pulse Rate 89 84 Respiratory Rate 21 21 Blood Pressure 178/81 H Pulse Oximetry 94 93 Oxygen Delivery Method 07/06/25 21:00 07/06/25 21:01 07/06/25 21:01 Temperature Pulse Rate 81 83 Respiratory Rate 21 19 Blood Pressure 159/70 H Pulse Oximetry 93 92 Oxygen Delivery Method 07/06/25 21:30 07/06/25 22:00 07/06/25 22:00 Temperature Pulse Rate 87 81 Respiratory Rate 19 20 Blood Pressure 164/74 H Pulse Oximetry 92 92 Oxygen Delivery Method 07/06/25 22:30 07/06/25 23:00 07/06/25 23:00 Temperature Pulse Rate 79 81 Respiratory Rate 18 21 Blood Pressure 157/69 H Pulse Oximetry 90 L 90 L Oxygen Delivery Method 07/06/25 23:30 07/06/25 23:39 07/07/25 00:12 Temperature Pulse Rate 82 90 Respiratory Rate 18 31 H Blood Pressure 149/74 H Pulse Oximetry 93 94 Oxygen Delivery Method 07/07/25 00:34 Temperature 97.7 F Pulse Rate 86 Respiratory Rate 21 Blood Pressure 149/74 H Pulse Oximetry 96 Oxygen Delivery Method Room Air Oxygen Delivery Method Room Air Narrative Exam Narrative: Const General: comfortable and no acute distress Orientation: alert and oriented x3 HENMT Ears: hearing grossly normal bilaterally Eyes Visual Ambrosio: normal visual ambrosio by confrontation Conjunctivae: conjunctivae normal Sclera: sclerae normal EOM: EOM intact bilaterally Resp Effort & Inspection: normal respiratory effort and able to speak in complete sentences Cardio Rate: regular rate GI Palpation: soft, +RUQ pain Extrem General: no pedal edema and no calf tenderness Objective Labs 07/06/25 17:25 07/06/25 17:25 Labs: Laboratory Results - last 24 hr 07/06/25 07/06/25 07/06/25 17:25 19:24 21:35 WBC 18.7 H RBC 5.12 Hgb 14.9 Hct 44.3 MCV 86.4 MCH 29.2 MCHC 33.8 RDW 13.3 Plt Count 184 Neut % (Auto) 92.0 H Lymph % (Auto) 1.7 L [place] % (Auto) 6.1 Eos % (Auto) 0.0 L Baso % (Auto) 0.2 Neut # (Auto) 56212 H Lymph # (Auto) 300 L [place] # (Auto) 1100 H Eos # (Auto) 0 Baso # (Auto) 0 Sodium 130 L Potassium 4.0 Chloride 93 L Carbon Dioxide 24 BUN 15 Creatinine 0.69 Estimated GFR > 60 BUN/Creatinine Ratio 21.7 Glucose 220 H POC Whole Bld Glucose Lactate 2.6 H 2.3 H Calcium 9.3 Total Bilirubin 1.6 H AST 53 ALT 31 Alkaline Phosphatase 83 Total Protein 7.8 Albumin 4.5 Globulin 3.3 Albumin/Globulin Ratio 1.4 Lipase 266 Urine RBC 0-1/hpf Urine WBC 0-1/hpf Ur Squamous Epith Cells 0-1 /hpf Urine Bacteria Occasional (0-1) Urine Mucus 1+ H Vol Urine Centrifuged 10ml (spun) 07/07/25 00:30 WBC RBC Hgb Hct MCV MCH MCHC RDW Plt Count Neut % (Auto) Lymph % (Auto) [place] % (Auto) Eos % (Auto) Baso % (Auto) Neut # (Auto) Lymph # (Auto) [place] # (Auto) Eos # (Auto) Baso # (Auto) Sodium Potassium Chloride Carbon Dioxide BUN Creatinine Estimated GFR BUN/Creatinine Ratio Glucose POC Whole Bld Glucose 232 H Lactate Calcium Total Bilirubin AST ALT Alkaline Phosphatase Total Protein Albumin Globulin Albumin/Globulin Ratio Lipase Urine RBC Urine WBC Ur Squamous Epith Cells Urine Bacteria Urine Mucus Vol Urine Centrifuged [facility] Medical History (Updated 07/07/25 @ 01:32 by Aj Bain MD) Sacral dysfunction Scarring Depression (~2001) Fragile skin Hip pain, bilateral Knee pain, bilateral Neck pain Arthritis PVC's (premature ventricular contractions) Pneumonia Diverticulosis Thoracogenic scoliosis, thoracolumbar region Chronic low back pain Diverticulitis LBBB (left bundle branch block) Chest pain HTN (hypertension) Hyperlipidemia Arrhythmia Surgical History History of lumbar spinal fusion (10/29/18) History of fusion of lumbar spine (10/10/18) Hx of tonsillectomy Hx of hernia repair History of lumbar fusion (~2006) Hx of shoulder surgery (~2004) Social History household members: none Tobacco & Substance Use Smoking Status: Never smoker alcohol intake: current Additional Social History additional social history: son with new dx of metastatic prostate cancer. 06/2023 Patient was recently able to adopt REBEKAH THE CAT to replace REBEKAH the cat who 04/2023 2 large cocktails every night. used to drink more. [facility] 02/2023 Assessment & Plan Assessment and plan (1) Acute cholecystitis due to biliary calculus: Status: Acute Plan Plan to continue IV ceftriaxone/flagyl, pain meds, anti-emetics for now Will need cardiac clearance prior to surgery May need perc choley tube by IR at outside facility if deemed not candidate for surgery/anesthesia Will follow Time-Based Coding :: [TOTAL MINUTES] spent with patient and on the chart (including review of chart, obtaining history, exam, reviewing outside data, placing orders, documenting exam and treatment plan, and counseling patient) on [DATE]. PROFEE Charge Codes Inpatient or Observation consultation: 89710
--- NOTE | 2025-07-07 02:01 | PM.HP.1 ---
History of Present Illness History of Present Illness Date Patient Seen: 07/07/25 Time Patient Seen: 02:01 Chief complaint: lower abd pain Narrative: The pt is a 85 yo who started having abdominal pain on 07/05 and became more localized in the RUQ as dinorah pain became more severe. He started having N/V last Saturday night and Saturday morning so he came to his local clinic who then brought him to the ER. The pt has a long hx of atrial fibrillation & HTN for most of his life and sees Dr. Campos. He has refused anticoagulation in the past due to possible side effects. He has chronic back pain, which limits his exertional activity, but never gets chest pain or chest pressure. [facility] Medical History (Updated 07/07/25 @ 01:32 by Aj Bain MD) Sacral dysfunction Scarring Depression (~2001) Fragile skin Hip pain, bilateral Knee pain, bilateral Neck pain Arthritis PVC's (premature ventricular contractions) Pneumonia Diverticulosis Thoracogenic scoliosis, thoracolumbar region Chronic low back pain Diverticulitis LBBB (left bundle branch block) Chest pain HTN (hypertension) Hyperlipidemia Arrhythmia Surgical History History of lumbar spinal fusion (10/29/18) History of fusion of lumbar spine (10/10/18) Hx of tonsillectomy Hx of hernia repair History of lumbar fusion (~2006) Hx of shoulder surgery (~2004) Social History household members: none Smoking Status: Never smoker alcohol intake: current additional social history: son with new dx of metastatic prostate cancer. 06/2023 Patient was recently able to adopt [employer]KAH [employer] CAT to replace REBEKAH the cat who 04/2023 2 large cocktails every night. used to drink more. [facility] 02/2023 Meds Home Medications and Allergies Home Medications ?Medication ?Instructions ?Recorded ?Confirmed ?Type metoprolol tartrate 50 mg tablet 25 mg PO DAILY 10/27/21 07/06/25 History amlodipine 5 mg tablet 5 mg PO DAILY #90 tabs 10/31/23 07/06/25 Rx fluticasone propionate 50 1 spray intranasal BID #16 grams 06/04/24 07/06/25 Rx mcg/actuation nasal spray,suspension (Allergy Relief (fluticasone)) meloxicam 7.5 mg tablet 15 mg (2 x 7.5 mg) PO QAM for pain 11/27/24 07/06/25 Rx Held on 02/05/25. if needed #180 tabs Instructions: Home Medication placed on hold at Doctor's office azelastine 137 mcg (0.1 %) nasal 2 spray intranasal BID #30 mL 01/19/25 07/06/25 Rx spray ipratropium bromide 21 mcg (0.03 2 spray intranasal TID for 01/19/25 07/06/25 Rx %) nasal spray drainage or congestion #30 mL tramadol 50 mg tablet 50 mg PO BID PRN pain #42 tabs 02/05/25 07/06/25 Rx Allergies Allergy/AdvReac Type Severity Reaction Status Date / Time No Known Drug Allergies Allergy Verified 07/06/25 17:42 Exam Vital Signs (past 8 hours): - 07/06/25 18:30 07/06/25 18:30 07/06/25 19:00 Temperature Pulse Rate 90 87 Respiratory Rate 22 18 Blood Pressure 170/90 H Pulse Oximetry 94 94 Oxygen Delivery Method 07/06/25 19:30 07/06/25 19:56 07/06/25 19:56 Temperature 98.3 F Pulse Rate 89 91 H Respiratory Rate 22 19 Blood Pressure 164/79 H Pulse Oximetry 92 94 Oxygen Delivery Method 07/06/25 20:00 07/06/25 20:00 07/06/25 20:30 Temperature Pulse Rate 89 84 Respiratory Rate 21 21 Blood Pressure 178/81 H Pulse Oximetry 94 93 Oxygen Delivery Method 07/06/25 21:00 07/06/25 21:01 07/06/25 21:01 Temperature Pulse Rate 81 83 Respiratory Rate 21 19 Blood Pressure 159/70 H Pulse Oximetry 93 92 Oxygen Delivery Method 07/06/25 21:30 07/06/25 22:00 07/06/25 22:00 Temperature Pulse Rate 87 81 Respiratory Rate 19 20 Blood Pressure 164/74 H Pulse Oximetry 92 92 Oxygen Delivery Method 07/06/25 22:30 07/06/25 23:00 07/06/25 23:00 Temperature Pulse Rate 79 81 Respiratory Rate 18 21 Blood Pressure 157/69 H Pulse Oximetry 90 L 90 L Oxygen Delivery Method 07/06/25 23:30 07/06/25 23:39 07/07/25 00:12 Temperature Pulse Rate 82 90 Respiratory Rate 18 31 H Blood Pressure 149/74 H Pulse Oximetry 93 94 Oxygen Delivery Method 07/07/25 00:34 Temperature 97.7 F Pulse Rate 86 Respiratory Rate 21 Blood Pressure 149/74 H Pulse Oximetry 96 Oxygen Delivery Method Room Air Oxygen Delivery Method Room Air Const General: cooperative, healthy appearing and comfortable Objective Labs 07/06/25 17:25 07/06/25 17:25 Labs: Laboratory Results - last 24 hr 07/06/25 07/06/25 07/06/25 17:25 19:24 21:35 WBC 18.7 H RBC 5.12 Hgb 14.9 Hct 44.3 MCV 86.4 MCH 29.2 MCHC 33.8 RDW 13.3 Plt Count 184 Neut % (Auto) 92.0 H Lymph % (Auto) 1.7 L [place] % (Auto) 6.1 Eos % (Auto) 0.0 L Baso % (Auto) 0.2 Neut # (Auto) 70529 H Lymph # (Auto) 300 L [place] # (Auto) 1100 H Eos # (Auto) 0 Baso # (Auto) 0 Sodium 130 L Potassium 4.0 Chloride 93 L Carbon Dioxide 24 BUN 15 Creatinine 0.69 Estimated GFR > 60 BUN/Creatinine Ratio 21.7 Glucose 220 H POC Whole Bld Glucose Lactate 2.6 H 2.3 H Calcium 9.3 Total Bilirubin 1.6 H AST 53 ALT 31 Alkaline Phosphatase 83 Total Protein 7.8 Albumin 4.5 Globulin 3.3 Albumin/Globulin Ratio 1.4 Lipase 266 Urine RBC 0-1/hpf Urine WBC 0-1/hpf Ur Squamous Epith Cells 0-1 /hpf Urine Bacteria Occasional (0-1) Urine Mucus 1+ H Vol Urine Centrifuged 10ml (spun) 07/07/25 00:30 WBC RBC Hgb Hct MCV MCH MCHC RDW Plt Count Neut % (Auto) Lymph % (Auto) [place] % (Auto) Eos % (Auto) Baso % (Auto) Neut # (Auto) Lymph # (Auto) [place] # (Auto) Eos # (Auto) Baso # (Auto) Sodium Potassium Chloride Carbon Dioxide BUN Creatinine Estimated GFR BUN/Creatinine Ratio Glucose POC Whole Bld Glucose 232 H Lactate Calcium Total Bilirubin AST ALT Alkaline Phosphatase Total Protein Albumin Globulin Albumin/Globulin Ratio Lipase Urine RBC Urine WBC Ur Squamous Epith Cells Urine Bacteria Urine Mucus Vol Urine Centrifuged Assessment & Plan Assessment & Plan narrative: I have discussed the pt's presenting symptoms, labs and imaging with the ER provider and agree with the decision for admission. I have personnally reviewed the labs showing a WBC of 18, lipase of 266 & LA of 2.6 and I have reviewed the CT scan showing the inflammed GB. The pt will need more than 2 MN stay. 1. acute cholecystitis- gen surgery has been consulted through the ER and has evaluated the pt. He was going to go to surgery tonight but surgery wanted cardiac clearence prior to surgery. will keep NPO, antiemetics ordered, IVF of NS, IV narcotics ordered for pain control. 2. Atrial Fibrillation- monitor on tele, cardiology has been consulted, echo in am, HR is stable, continue metoprolol, is not on anticoagulation. 3. gall bladder pancreatitis- lipase is elevated, NPO, repeat level in am, added risk factor for surgery, 4. HTN- stable at this time. I, Dr. Syd Matthew in [place] has seen and evaluated Jong Perry in [place] with audio/video of telemedicine with the pt's consent and nursing assistance. Time-Based Coding :: [TOTAL MINUTES] spent with patient and on the chart (including review of chart, obtaining history, exam, reviewing outside data, placing orders, documenting exam and treatment plan, and counseling patient) on [DATE].
--- NOTE | 2025-07-07 02:11 | DI.ECHO.S_ITS ---
[facility] : : [address] : : [place] : : [id number] : : Phone: [phone] Echocardiogram Report + + :Name: NADIYA ZARATE Study Date: 07/07/2025 Height: 71 in : :[facility] ReadingLocation: Weight: 185 lb : : Gender: Male BSA: 2.0 m2 : :: 1940 Age: 85 yrs BP: 110/80 mmHg: :Reason For Study: ATRIAL FIBRILLATION : :Ordering Physician: AJ, : :SHIRA NEFF Performed By: Chris Webber : :Referring: UNSPECIFIED : + + Interpretation Summary - The left ventricular contractility is normal. Estimated ejection fraction is greater than 55% with paradoxical inferoseptal motion. Mild concentric LVH. Unable to comment on diastolic function. - The right ventricular contractility is normal. - Significant biatrial enlargement. Mild right ventricular enlargement. The left ventricle is of normal size. - Moderate to severe mitral annular calcifications with mild mitral valvular stenosis. Mean gradient is 4.5 mmHg. - Tricuspid regurgitation noted on spectral display only with estimated pulmonary systolic artery pressures of 48 to 53 mmHg. - No obvious intracardiac shunts. - No obvious intracardiac masses nor thrombi. - No hemodynamically significant pericardial effusion. Conclusion: Normal biventricular systolic function with mild mitral valvular stenosis and moderate pulmonary hypertension. When compared to previous echocardiogram, there appears to be no significant changes in the degree of mitral valvular stenosis but an increase in estimated pulmonary systolic artery pressures. Procedure: A two-dimensional transthoracic echocardiogram with color flow and Doppler was performed. The study quality was technically adequate. Comparison is made with the echocardiogram of 01/05/2021. The patient was in atrial fibrillation with heart rates between 62-98 bpm during the exam. Left Ventricle: The left ventricle is normal in size. Left ventricular wall thickness is mildly increased. There is no ventricular septal defect visualized. The ejection fraction is estimated to be 55-60%. There are regional wall motion abnormalities as specified. Diastolic function could not be accurately assessed due to atrial fibrillation. Right Ventricle: The right ventricle is mildly dilated. The right ventricular systolic function is normal. Atria: The left atrium is severely dilated. The right atrium is mild to moderately dilated. There is no Doppler evidence for an interatrial shunt. Mitral Valve: There is moderate to severe mitral annular calcification. The mitral valve leaflets appear mildly thickened. There is mild mitral stenosis. The mitral valve mean gradient is 4.5 mmHg. There is trace mitral regurgitation. Aortic Valve: The aortic valve is trileaflet. The aortic valve is mildly calcified. No aortic regurgitation is present. Tricuspid Valve: The tricuspid valve leaflets are thin and pliable. There is trace tricuspid regurgitation. Pulmonic Valve: The pulmonic valve is not well seen, but is grossly normal. There is no pulmonic valvular regurgitation. Great Vessels: The aortic root is normal size. The dimensions of the ascending aorta are normal. The pulmonary is not well visualized. The inferior vena cava was not visualized. Pericardium/ Pleura There is no pericardial effusion. MMode/2D Measurements & Calculations LVIDd: 4.6 cm LVOT diam: 2.1 cm LVIDs: 3.3 cm Ao root diam: 3.6 cm FS: 29.1 % asc Aorta Diam: 3.1 cm EPSS: 0.83 cm Ao Arch Diam (Prox Trans): 1.6 cm IVSd: 1.2 cm LVPWd: 1.2 cm LV clifford. diameter/BSA (cm/m^2): 2.2 LV sys. diameter/BSA (cm/m^2): 1.6 LA A2 area: 25.3 cm2 RA long axis: 6.0 cm LA A4 area: 29.9 cm2 RA area: 23.3 cm2 LA length (vol): 7.1 cm RA vol: 77.4 ml LA vol: 91.1 ml RA : 38.0 ml/m2 LA vol index: 44.7 ml/m2 RVD1 (basal): 4.4 cm RVD2 (mid): 3.0 cm TAPSE: 2.3 cm Doppler Measurements & Calculations Ao V2 max: 156.6 cm/sec LVOT Max Juanito: 113.8 cm/sec Ao V2 mean: 106.3 cm/sec LV V1 max P.2 mmHg Ao max P.8 mmHg LV V1 VTI: 19.1 cm Ao mean P.1 mmHg ASA(I,D): 2.7 cm2 Ao V2 VTI: 24.6 cm ASA(V,D): 2.5 cm2 sev ratio: 0.78 ASA indexed to BSA (cm^2/m^2): 1.3 MV E max juanito: 155.4 cm/sec TR max juanito: 308.2 cm/sec MV A max juanito: 63.0 cm/sec TR max P.0 mmHg MV E/A: 2.5 PA V2 max: 123.2 cm/sec Med Peak E' Juanito: 5.0 cm/sec PA V2 mean: 81.4 cm/sec E/E' med: 31.1 PA mean P.0 mmHg Lat Peak E' Juanito: 4.7 cm/sec PA pr(Accel): 60.2 mmHg E/E' lat: 32.8 E/e' average: 32.0 MV dec time: 0.30 sec MVA(VTI): 1.4 cm2 MV V2 mean: 96.2 cm/sec SV(LVOT): 66.5 ml MV mean P.5 mmHg MV V2 VTI: 47.2 cm Reading Physician:CHACHA
[2025-07-07] MEDS: PIPERACILLIN/TAZO 3.375 GM in SODIUM CHLORIDE 0.9% 100 ML IV ×3 (02:46→18:14)
[2025-07-07] MEDS: SODIUM CHLORIDE 0.9% 1,000 ML 100 ML IV ×2 (02:47→21:06)
--- NOTE | 2025-07-07 06:59 | PM.PN.IH.1 ---
Subjective Subjective Date Patient Seen: 07/07/25 Time Patient Seen: 06:59 Interval history: C/O RUQ pain, still significant, requiring IV pain medications, +nausea Exam Vital Signs (past 8 hours): - 07/06/25 23:00 07/06/25 23:00 07/06/25 23:30 Temperature Pulse Rate 81 82 Respiratory Rate 21 18 Blood Pressure 157/69 H Pulse Oximetry 90 L 93 Oxygen Delivery Method 07/06/25 23:39 07/07/25 00:12 07/07/25 00:34 Temperature 97.7 F Pulse Rate 90 86 Respiratory Rate 31 H 21 Blood Pressure 149/74 H 149/74 H Pulse Oximetry 94 96 Oxygen Delivery Method Room Air 07/07/25 01:48 Temperature 98 F Pulse Rate 79 Respiratory Rate 18 Blood Pressure 110/80 Pulse Oximetry 94 Oxygen Delivery Method Oxygen Delivery Method Room Air GI Other: ABD: soft, +RUQ pain Objective Labs 07/06/25 17:25 07/06/25 17:25 Labs: Laboratory Results - last 24 hr 07/06/25 07/06/25 07/06/25 17:25 19:24 21:35 WBC 18.7 H RBC 5.12 Hgb 14.9 Hct 44.3 MCV 86.4 MCH 29.2 MCHC 33.8 RDW 13.3 Plt Count 184 Neut % (Auto) 92.0 H Lymph % (Auto) 1.7 L [place] % (Auto) 6.1 Eos % (Auto) 0.0 L Baso % (Auto) 0.2 Neut # (Auto) 63657 H Lymph # (Auto) 300 L [place] # (Auto) 1100 H Eos # (Auto) 0 Baso # (Auto) 0 Sodium 130 L Potassium 4.0 Chloride 93 L Carbon Dioxide 24 BUN 15 Creatinine 0.69 Estimated GFR > 60 BUN/Creatinine Ratio 21.7 Glucose 220 H POC Whole Bld Glucose Lactate 2.6 H 2.3 H Calcium 9.3 Total Bilirubin 1.6 H AST 53 ALT 31 Alkaline Phosphatase 83 Total Protein 7.8 Albumin 4.5 Globulin 3.3 Albumin/Globulin Ratio 1.4 Lipase 266 Urine RBC 0-1/hpf Urine WBC 0-1/hpf Ur Squamous Epith Cells 0-1 /hpf Urine Bacteria Occasional (0-1) Urine Mucus 1+ H Vol Urine Centrifuged 10ml (spun) 07/07/25 00:30 WBC RBC Hgb Hct MCV MCH MCHC RDW Plt Count Neut % (Auto) Lymph % (Auto) [place] % (Auto) Eos % (Auto) Baso % (Auto) Neut # (Auto) Lymph # (Auto) [place] # (Auto) Eos # (Auto) Baso # (Auto) Sodium Potassium Chloride Carbon Dioxide BUN Creatinine Estimated GFR BUN/Creatinine Ratio Glucose POC Whole Bld Glucose 232 H Lactate Calcium Total Bilirubin AST ALT Alkaline Phosphatase Total Protein Albumin Globulin Albumin/Globulin Ratio Lipase Urine RBC Urine WBC Ur Squamous Epith Cells Urine Bacteria Urine Mucus Vol Urine Centrifuged [facility] Medical History (Updated 07/07/25 @ 01:32 by Aj Bain MD) Sacral dysfunction Scarring Depression (~2001) Fragile skin Hip pain, bilateral Knee pain, bilateral Neck pain Arthritis PVC's (premature ventricular contractions) Pneumonia Diverticulosis Thoracogenic scoliosis, thoracolumbar region Chronic low back pain Diverticulitis LBBB (left bundle branch block) Chest pain HTN (hypertension) Hyperlipidemia Arrhythmia Surgical History History of lumbar spinal fusion (10/29/18) History of fusion of lumbar spine (10/10/18) Hx of tonsillectomy Hx of hernia repair History of lumbar fusion (~2006) Hx of shoulder surgery (~2004) Social History household members: none Smoking Status: Never smoker alcohol intake: current additional social history: son with new dx of metastatic prostate cancer. 06/2023 Patient was recently able to adopt [employer]AH [employer] CAT to replace REBEKAH the cat who 04/2023 2 large cocktails every night. used to drink more. [facility] 02/2023 Assessment & Plan Assessment and plan (1) Acute cholecystitis due to biliary calculus: Status: Acute Plan He will need cardiac clearance/risk assessment If deemed an operative candidate, plan lap choley with gram; if not, consider transfer to another facility for percutaneous cholecystostomy tube Continue IV abx, IV pain & nausea meds for now Trend labs - total bili 1.6 yesterday, LFTs otherwise within normal range Time-Based Coding :: [TOTAL MINUTES] spent with patient and on the chart (including review of chart, obtaining history, exam, reviewing outside data, placing orders, documenting exam and treatment plan, and counseling patient) on [DATE]. PROFEE [employer] Document charge(s): Yes Charge Codes Subsequent inpatient/observation care: [id number]
--- NOTE | 2025-07-07 07:01 | PC.NURSE ---
and were ok with the zofran being given earlier than what was scheduled and orders.
--- NOTE | 2025-07-07 07:04 | PC.NURSE ---
patient not sure exactly the dose and frequncey of his home medications.
[2025-07-07 07:05] LABS: Add Manual Diff / Slide Review NO; Hematocrit 41.6 % (41-53); Hemoglobin 14.0 g/dL (13.5-17.5); Lymphocytes Absolute Auto 500 /uL (1100-4500); Mean Corpuscular HGB Conc 33.8 % (30-36); Mean Corpuscular Hemoglobin 29.4 PG (26-34); Mean Corpuscular Volume 87.2 fL (80-100); Platelet Count 165 X10^3/uL (150-400)
[2025-07-07 07:18] LABS: Alanine Aminotransferase 34 IU/L (<50); Albumin 3.6 g/dL (3.5-5.0); Albumin Globulin Ratio 1.2 (1.0-2.8); Alkaline Phosphatase 64 U/L (38-126); Blood Urea Nitrogen 16 mg/dL (9-20); Calcium 8.4 mg/dL (8.4-10.2); Carbon Dioxide 24 mmol/L (22-32); Chloride 97 mmol/L (98-107); Estimated Glomerular Filt Rate > 60 mL/min (>60); Globulin 2.9 g/dL (1.7-4.1); Glucose 173 mg/dL (70-99); HEMOLYSIS < 15 (0-50); Potassium 3.7 mmol/L (3.4-5.1); Sodium 132 mmol/L (137-145); Total Protein 6.5 g/dL (6.3-8.2)
--- NOTE | 2025-07-07 07:33 | PM.HP.1 ---
History of Present Illness History of Present Illness Date Patient Seen: 07/07/25 Chief complaint: lower abd pain Narrative: Night doctor: The pt is a 85 yo who started having abdominal pain on 07/05 and became more localized in the RUQ as dinorah pain became more severe. He started having N/V last Saturday night and Saturday morning so he came to his local clinic who then brought him to the ER. The pt has a long hx of atrial fibrillation & HTN for most of his life and sees Dr. Campos. He has refused anticoagulation in the past due to possible side effects. He has chronic back pain, which limits his exertional activity, but never gets chest pain or chest pressure. S: He was having ongoing right upper quadrant pain. He denies any chest pain. He was history of atrial fibrillation, but no history of myocardial infarction, CAD, or heart failure. Surgery did order an echo for preoperative evaluation. ROS: All else reviewed and otherwise unremarkable except as noted in the history and physical. O: VSS NAD, alert and oriented, fluent speech, calm. Normocephalic skull, EOMI, anicteric sclera, symmetric pupils. Oropharynx unremarkable, no droop. Neck supple, midline trachea, no adenopathy. Lungs clear, normal rate and effort. Heart regular, no murmur gallop or rub. Abdomen is soft, non distended and non tender. Extremities are free of edema. Skin is free of rash or lesions. Joints are not swollen or deformed. Judgment appears to be normal. IMAGING: CTAP: Acute cholecystitis. No evidence of choledocholithiasis or acute pancreatitis. Colonic diverticulosis without evidence of diverticulitis. Diffuse bladder wall thickening, which may indicate chronic outlet obstruction versus cystitis. Correlate with urinalysis. ECG: ntervals [place] Rate: 86 P: [place]: QRS: -35 QRSD: 150 T: 95 QT: 396 QTc: 473 Interpretive Statements Atrial fibrillation Left axis deviation Left bundle branch block A/P: 1. acute cholecystitis- gen surgery has been consulted through the ER and has evaluated the pt. He was going to go to surgery tonight but surgery wanted cardiac clearence prior to surgery. will keep NPO, antiemetics ordered, IVF of NS, IV narcotics ordered for pain control. 2. Atrial Fibrillation- monitor on tele, cardiology has been consulted, echo in am, HR is stable, continue metoprolol, is not on anticoagulation. 3. gall bladder pancreatitis- lipase is elevated, NPO, repeat level in am, added risk factor for surgery, 4. HTN- stable at this time. 5. LBBB. Stable PLAN: -cholecystectomy is anticipated today. -continue IV antibiotics. -screening echo prior. -He will be low risk for surgery, he was had 3 back surgeries and a shoulder surgery in recent years without any issues. Anticipate 2 midnights in the hospital, supports inpatient status. Full code [facility] Medical History Sacral dysfunction Scarring Depression (~2001) Fragile skin Hip pain, bilateral Knee pain, bilateral Neck pain Arthritis PVC's (premature ventricular contractions) Pneumonia Diverticulosis Thoracogenic scoliosis, thoracolumbar region Chronic low back pain Diverticulitis LBBB (left bundle branch block) Chest pain HTN (hypertension) Hyperlipidemia Arrhythmia Surgical History History of lumbar spinal fusion (10/29/18) History of fusion of lumbar spine (10/10/18) Hx of tonsillectomy Hx of hernia repair History of lumbar fusion (~2006) Hx of shoulder surgery (~2004) Social History household members: none Smoking Status: Never smoker alcohol intake: current additional social history: son with new dx of metastatic prostate cancer. 06/2023 Patient was recently able to adopt REBEKAH THE CAT to replace REBEKAH the cat who 04/2023 2 large cocktails every night. used to drink more. [facility] 02/2023 Meds Home Medications and Allergies Home Medications ?Medication ?Instructions ?Recorded ?Confirmed ?Type metoprolol tartrate 50 mg tablet 25 mg PO DAILY 10/27/21 07/06/25 History amlodipine 5 mg tablet 5 mg PO DAILY #90 tabs 10/31/23 07/06/25 Rx fluticasone propionate 50 1 spray intranasal BID #16 grams 06/04/24 07/06/25 Rx mcg/actuation nasal spray,suspension (Allergy Relief (fluticasone)) meloxicam 7.5 mg tablet 15 mg (2 x 7.5 mg) PO QAM for pain 11/27/24 07/06/25 Rx Held on 02/05/25. if needed #180 tabs Instructions: Home Medication placed on hold at Doctor's office azelastine 137 mcg (0.1 %) nasal 2 spray intranasal BID #30 mL 01/19/25 07/06/25 Rx spray ipratropium bromide 21 mcg (0.03 2 spray intranasal TID for 01/19/25 07/06/25 Rx %) nasal spray drainage or congestion #30 mL tramadol 50 mg tablet 50 mg PO BID PRN pain #42 tabs 02/05/25 07/06/25 Rx Allergies Allergy/AdvReac Type Severity Reaction Status Date / Time No Known Drug Allergies Allergy Verified 07/06/25 17:42 Exam Vital Signs (past 8 hours): - 07/06/25 23:39 07/07/25 00:12 07/07/25 00:34 Temperature 97.7 F Pulse Rate 90 86 Respiratory Rate 31 H 21 Blood Pressure 149/74 H 149/74 H Pulse Oximetry 94 96 Oxygen Delivery Method Room Air 07/07/25 01:48 Temperature 98 F Pulse Rate 79 Respiratory Rate 18 Blood Pressure 110/80 Pulse Oximetry 94 Oxygen Delivery Method Oxygen Delivery Method Room Air Objective Labs 07/07/25 06:50 07/07/25 06:50 Labs: Laboratory Results - last 24 hr 07/06/25 07/06/25 07/06/25 17:25 19:24 21:35 WBC 18.7 H RBC 5.12 Hgb 14.9 Hct 44.3 MCV 86.4 MCH 29.2 MCHC 33.8 RDW 13.3 Plt Count 184 Neut % (Auto) 92.0 H Lymph % (Auto) 1.7 L [place] % (Auto) 6.1 Eos % (Auto) 0.0 L Baso % (Auto) 0.2 Neut # (Auto) 85933 H Lymph # (Auto) 300 L [place] # (Auto) 1100 H Eos # (Auto) 0 Baso # (Auto) 0 Sodium 130 L Potassium 4.0 Chloride 93 L Carbon Dioxide 24 BUN 15 Creatinine 0.69 Estimated GFR > 60 BUN/Creatinine Ratio 21.7 Glucose 220 H POC Whole Bld Glucose Lactate 2.6 H 2.3 H Calcium 9.3 Total Bilirubin 1.6 H AST 53 ALT 31 Alkaline Phosphatase 83 Total Protein 7.8 Albumin 4.5 Globulin 3.3 Albumin/Globulin Ratio 1.4 Lipase 266 Urine RBC 0-1/hpf Urine WBC 0-1/hpf Ur Squamous Epith Cells 0-1 /hpf Urine Bacteria Occasional (0-1) Urine Mucus 1+ H Vol Urine Centrifuged 10ml (spun) 07/07/25 07/07/25 00:30 06:50 WBC 15.7 H RBC 4.77 Hgb 14.0 Hct 41.6 MCV 87.2 MCH 29.4 MCHC 33.8 RDW 13.7 Plt Count 165 Neut % (Auto) 90.4 H Lymph % (Auto) 3.4 L [place] % (Auto) 6.1 Eos % (Auto) 0.1 L Baso % (Auto) 0.0 Neut # (Auto) 16264 H Lymph # (Auto) 500 L [place] # (Auto) 1000 H Eos # (Auto) 0 Baso # (Auto) 0 Sodium 132 L Potassium 3.7 Chloride 97 L Carbon Dioxide 24 BUN 16 Creatinine 0.87 Estimated GFR > 60 BUN/Creatinine Ratio 18.4 Glucose 173 H POC Whole Bld Glucose 232 H Lactate Calcium 8.4 Total Bilirubin 1.6 H AST 54 ALT 34 Alkaline Phosphatase 64 Total Protein 6.5 Albumin 3.6 Globulin 2.9 Albumin/Globulin Ratio 1.2 Lipase Urine RBC Urine WBC Ur Squamous Epith Cells Urine Bacteria Urine Mucus Vol Urine Centrifuged Assessment & Plan Time-Based Coding :: 35 min spent with patient and on the chart (including review of chart, obtaining history, exam, reviewing outside data, placing orders, documenting exam and treatment plan, and counseling patient) on 07/07. Quality MIPS - Admit I confirm the patient?s Advance Care Plan is present, Code status is documented, Surrogate decision maker is in patient?s record [If Yes, STOP here]: Yes MIPS - Meds 'Current medications' to include all prescriptions, [id number] products, herbals, cannabis/cannabidiol products, and vitamin/mineral/dietary (nutritional) supplements. I have utilized all available resources to obtain, update, or review the patient?s current medications. [If Yes, STOP here]: Yes
[2025-07-07] MEDS: METOPROLOL IR 50 MG TABLET 25 MG PO (09:55)
[2025-07-07] MEDS: FLUTICASONE 120 SPRAY/16 GM SPRAY.SUSP NASAL (09:56)
--- NOTE | 2025-07-07 13:24 | CM.DANOTE ---
Initial DCP Assessment Visit Note Reviewed EMR and team rounds for pt's medical status and updates. Met with pt at bedside to introduce self and role, pt was found to be alert/oriented, a little frustrated about not being able to grab his phone before EMS took him to be airlifted to the ED last evening. He has a friend on [address] who will come to transport him once he's medically cleared for home d/c. He declines any CM needs or resources for d/c at this time. Payor: Medicare PCP: Dr. White Pt is a 85 year-old M who presented to the ED after being airlifted from [facility] last night after having sudden onset R-sided abdominal pain, nausea, and vomiting. He was also found to be in Afib , and was hypertensive. CT imaging in the ED confirmed acute cholecystitis. Surgery was consulted, and the plan was made to admit NPO, heart ECHO due to EKG irregularity, and then he will be taken later this afternoon to surgery for a cholecystectomy. DCP will continue to monitor for any further evolving needs. Discharge Planning/Care Management CM Discharge Assessment Start: 07/06/25 23:32 Freq: Status: Active Protocol: Document 07/07/25 13:20 DPL (Rec: 07/07/25 13:24 DPL [id number]) Discharge Planning Assessment Assigned Discharge DANICA Mo Infectious Disease Technician Provider Cindy Insurance Medicare Advance Directives? No Advance Directives Yes on File History Provided By Patient,Medical Record Has Patient been No admitted in last 30 days? Prior Living House Arrangements Household Members none Type of Drives own vehicle transporation used prior to admit Independent with ADL Yes 's Is patient alert and Yes oriented? Comment N/A Caregiver for No Another DME Already Rented / FWW / Walker,Cane Owned Patient/Family OP PT Therapy Preference Discharge Plan Home Transportation Friend(s) to provide to transport. Arrangement Whiteboard Updated Yes in Patient Room with name and ext. # of Layout Inspector Review Status In Process Please Provide Date 07/07/25 Initial DC Assessment Was Performed
[2025-07-07] MEDS: LACTATED RINGERS 1,000 ML 42 ML IV (17:04)
[2025-07-07] MEDS: ACETAMINOPHEN 325 MG TABLET 650 MG PO (17:06)
--- NOTE | 2025-07-07 18:28 | SUR.OPER ---
Supine on padded OR bed, head on pillow, arms secured on padded arm boards at <90 degrees abduction, legs uncrossed, safety belt at thigh, tape over blanket over lower legs. bilateral feet resting on padded footboard, final positioning done by provider
--- NOTE | 2025-07-07 20:00 | PM.OP.1 ---
Operative Date/Time/Diagnoses Date of procedure: 07/07/25 Time of procedure: 20:00 Pre-op diagnosis: Acute cholecystitis Post-op diagnosis: other (Acute gangrenous cholecystitis) Procedure & Clinicians Procedure: Laparoscopic cholecystectomy Same procedure(s) as scheduled: Yes Surgeon: Nathanael Cotton Assisted?: No Anesthesia Type: General Operative Notes Findings: Acute gangrenous cholecystitis with gallbladder perforation Applied: none Estimated Blood Loss (mL): 50 Procedure in detail: The patient was on scheduled antibiotics. The patient was brought to the operating room and placed on the table in the supine position. General endotracheal anesthesia was induced. The abdomen was prepped and draped. A time-out was performed. We made a 1 cm infraumbilical incision. We dissected down to the base of the umbilical stalk using cautery. We grasped the umbilical stalk with a Jennie clamp to elevate the abdominal wall. We scored the fascia in the midline with cautery. We pierced the peritoneum with a Peon clamp. The Yobany port was placed and the abdomen was insufflated to 15 mmHg. A 5 mm 30 degree laparoscopic was inserted. There was no evidence of any injury from the entry. There was bilious ascites suggestive of a perforated gallbladder. Next, we placed 5 mm ports in the subxiphoid position and right upper quadrant at the midclavicular line and anterior axillary line. The patient was then positioned in reverse Trendelenburg and the table was tilted to the left. The gallbladder was significantly distended. There were scattered patches of gangrenous serosa. The gallbladder was decompressed with the aspiration needle. Roughly 30 mL of dark bile were aspirated and discarded. The infundibulum was dissected bluntly with a Kittner. We then dissected the cystic structures with a combination of hook cautery and blunt dissection. We obtained a critical view. We placed clips on the cystic duct and artery and divided the cystic duct and artery sharply between the clips. The gallbladder was then dissected off the liver and placed in a specimen retrieval bag. There were small stones and sludge spilled from the gallbladder during the procedure which were irrigated and suctioned up with a 3 L irrigation bag. We irrigated the right upper quadrant until all the aspirate returned clear. A 19 round James drain was placed in the gallbladder fossa and brought out through the right lateral port site. The drain was secured to the skin with a 3-0 nylon stitch. We then removed the remaining 5 mm ports under direct vision we removed the Yobany port. We then injected some local into the fascia and closed the fascia with three interrupted 0 Vicryl sutures. The skin incisions were closed with 4-0 Monocryl and Steri-Strips were applied. Band-Aids were applied over the Steri-Strips. Specimen: Gallbladder and contents Complications: none Post-operative Condition: stable Disposition: PACU
[2025-07-07] MEDS: SENNOSIDES 8.6 MG TABLET 17.2 MG PO (21:20)
--- NOTE | 2025-07-07 21:36 | SUR.PHASEI ---
Pt transfered to room 209 in bed by this RN. Dressing to James drain changed with Meron GAGNON. Saturated with sero sang drainage. 11/13 gauze and tegaderm applied.
[2025-07-08] MEDS: ACETAMINOPHEN 325 MG TABLET 650 MG PO (00:30)
--- NOTE | 2025-07-08 01:22 | PC.NURSE ---
Addendum entered by Meron Joseph RN 07/08/25 06:05: James dressing changed a 2nd time as again saturated and leaking thru. Site is bruised but no redness and no odor noted. Able to void 125cc this morning and urine was very dark jessica. Bladder scan showing 360cc. Original Note: Patient returned from surgery at 0. Is alert but states he feels woozy. Breath sounds CTA with RA sat of 93%; on continuous oximetry. HR irregular with telemetry reading of afib CVR w/BBB. Denied nausea. BT absent; abdomen is soft and mildly distended. Lap sites covered with bandaid dressings all CDI. James drain dressing saturated and changed by Fior, MASTER AUTOMOTIVE GLASS TECHNICIAN. James drain is compressed and intact with serosanguinous drainage. At 0000 he had not voided (reported he voided prior to surgery) but bladder scan was 243cc. He was able to turn himself in bed. Gait not assessed at this time but reports he was walking without an AD at home. 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 Is wearing bilateral calf SCD's. Medicated with tylenol for 3/10 abdominal discomfort with good pain relief. Fall risk score is moderate and bed alarm is activated.
[2025-07-08] MEDS: PIPERACILLIN/TAZO 3.375 GM in SODIUM CHLORIDE 0.9% 100 ML IV ×3 (02:47→18:33)
[2025-07-08 03:00] VITALS: BP 116/75; PULSE 89; RESP 17; TEMP 36.4; O2SAT 93
[2025-07-08 05:27] LABS: Add Manual Diff / Slide Review NO; Hematocrit 38.3 % (41-53); Hemoglobin 12.9 g/dL (13.5-17.5); Lymphocytes Absolute Auto 400 /uL (1100-4500); Mean Corpuscular HGB Conc 33.6 % (30-36); Mean Corpuscular Hemoglobin 29.3 PG (26-34); Mean Corpuscular Volume 87.4 fL (80-100); Platelet Count 143 X10^3/uL (150-400)
[2025-07-08 05:33] LABS: Alanine Aminotransferase 61 IU/L (<50); Albumin 3.3 g/dL (3.5-5.0); Albumin Globulin Ratio 1.1 (1.0-2.8); Alkaline Phosphatase 91 U/L (38-126); Blood Urea Nitrogen 21 mg/dL (9-20); Calcium 7.9 mg/dL (8.4-10.2); Carbon Dioxide 22 mmol/L (22-32); Chloride 101 mmol/L (98-107); Estimated Glomerular Filt Rate > 60 mL/min (>60); Globulin 2.9 g/dL (1.7-4.1); Glucose 205 mg/dL (70-99); HEMOLYSIS < 15 (0-50); Potassium 3.6 mmol/L (3.4-5.1); Sodium 131 mmol/L (137-145); Total Protein 6.2 g/dL (6.3-8.2)
[2025-07-08] MEDS: SODIUM CHLORIDE 0.9% 1,000 ML 100 ML IV ×2 (06:49→17:17)
--- NOTE | 2025-07-08 07:29 | P.PN_ITS ---
Subjective Subjective Interval history: 07/07: Admitted with the abdominal pain and found to have cholecystitis. Underwent cholecystectomy with finding of perforated necrotic gallbladder. S: He was not feeling great today. He was diffuse abdomen distention and some right upper quadrant tenderness. He was a lot of acid reflux which is a chronic problem for him. He underwent cholecystectomy yesterday and had a very friable, partially ruptured gallbladder. A drain has been left in place with a lot of output. O: VSS NAD, alert and oriented. Fluent speech. Lungs are clear, normal rate and effort. Heart is regular, no murmur gallop or rub. Abdomen is soft, non distended. Extremities are free of edema. IMAGING: CTAP: Acute cholecystitis. No evidence of choledocholithiasis or acute pancreatitis. Colonic diverticulosis without evidence of diverticulitis. Diffuse bladder wall thickening, which may indicate chronic outlet obstruction versus cystitis. Correlate with urinalysis. ECG: ntervals [place] Rate: 86 P: [place]: QRS: -35 QRSD: 150 T: 95 QT: 396 QTc: 473 Interpretive Statements Atrial fibrillation Left axis deviation Left bundle branch block A/P: 1. acute cholecystitis- gen surgery has been consulted through the ER and has evaluated the pt. He was going to go to surgery tonight but surgery wanted cardiac clearence prior to surgery. will keep NPO, antiemetics ordered, IVF of NS, IV narcotics ordered for pain control. 2. Atrial Fibrillation- monitor on tele, cardiology has been consulted, echo in am, HR is stable, continue metoprolol, is not on anticoagulation. 3. gall bladder pancreatitis- lipase is elevated, NPO, repeat level in am, added risk factor for surgery, 4. HTN- stable at this time. 5. LBBB. Stable PLAN: -Monitor drain -Monitor ileus. -continue IV antibiotics. -PPI IV BID He requires another night in the hospital for ongoing management. Anticipate 2 midnights in the hospital, supports inpatient status. Full code Exam Vital Signs (past 8 hours): - 07/07/25 23:46 07/08/25 03:00 Temperature 97.5 F L 97.5 F L Pulse Rate 80 89 Respiratory Rate 18 17 Blood Pressure 100/51 L 116/75 Pulse Oximetry 95 93 Oxygen Flow Rate 0 0 Oxygen Delivery Method Room Air Oxygen Flow Rate 0 Objective Labs 07/08/25 03:45 07/08/25 03:45 Labs: Laboratory Results - last 24 hr 07/08/25 03:45 WBC 13.0 H RBC 4.38 L Hgb 12.9 L Hct 38.3 L MCV 87.4 MCH 29.3 MCHC 33.6 RDW 14.1 Plt Count 143 L Neut % (Auto) 91.7 H Lymph % (Auto) 3.1 L [place] % (Auto) 4.8 Eos % (Auto) 0.0 L Baso % (Auto) 0.4 Neut # (Auto) 70009 H Lymph # (Auto) 400 L [place] # (Auto) 600 Eos # (Auto) 0 Baso # (Auto) 0 Sodium 131 L Potassium 3.6 Chloride 101 Carbon Dioxide 22 BUN 21 H Creatinine 0.99 Estimated GFR > 60 BUN/Creatinine Ratio 21.2 Glucose 205 H Calcium 7.9 L Total Bilirubin 1.1 AST 89 H ALT 61 H Alkaline Phosphatase 91 Total Protein 6.2 L Albumin 3.3 L Globulin 2.9 Albumin/Globulin Ratio 1.1 PFSH Medical History Sacral dysfunction Scarring Depression (~2001) Fragile skin Hip pain, bilateral Knee pain, bilateral Neck pain Arthritis PVC's (premature ventricular contractions) Pneumonia Diverticulosis Thoracogenic scoliosis, thoracolumbar region Chronic low back pain Diverticulitis LBBB (left bundle branch block) Chest pain HTN (hypertension) Hyperlipidemia Arrhythmia Surgical History History of lumbar spinal fusion (10/29/18) History of fusion of lumbar spine (10/10/18) Hx of tonsillectomy Hx of hernia repair History of lumbar fusion (~2006) Hx of shoulder surgery (~2004) Social History household members: none Smoking Status: Never smoker alcohol intake: current additional social history: son with new dx of metastatic prostate cancer. 06/2023 Patient was recently able to adopt REBEKAH THE CAT to replace REBEKAH the cat who 04/2023 2 large cocktails every night. used to drink more. [facility] 02/2023 Assessment & Plan Time-Based Coding :: [TOTAL MINUTES] spent with patient and on the chart (including review of chart, obtaining history, exam, reviewing outside data, placing orders, documenting exam and treatment plan, and counseling patient) on [DATE].
[2025-07-08 08:23] VITALS: BP 115/78; PULSE 93; RESP 20; TEMP 36.6; O2SAT 93
[2025-07-08] MEDS: PANTOPRAZOLE 40 MG VIAL IV ×2 (09:03→20:29)
[2025-07-08] MEDS: METOPROLOL IR 50 MG TABLET 25 MG PO (09:04)
[2025-07-08] MEDS: SODIUM CHLORIDE 0.9% 1,000 ML 1000 ML IV (09:05)
[2025-07-08] MEDS: ONDANSETRON 4 MG/2 ML INJ IV (09:50)
--- NOTE | 2025-07-08 09:54 | P.PN_ITS ---
Subjective Subjective Date Patient Seen: 07/08/25 Time Patient Seen: 09:54 Interval history: BB is less painful today but he has severe reflux whenever he drinks any liquids. There has been a fair amount of drainage around the James drain incision in the right abdomen Exam Vital Signs (past 8 hours): - 07/08/25 03:00 07/08/25 08:23 Temperature 97.5 F L 97.9 F Pulse Rate 89 93 H Respiratory Rate 17 20 Blood Pressure 116/75 115/78 Pulse Oximetry 93 93 Oxygen Flow Rate 0 0 Oxygen Delivery Method Room Air Oxygen Flow Rate 0 Narrative Exam Narrative: Abdomen is soft Drain output is mostly serosanguineous with a tinge of bile Objective Labs 07/08/25 03:45 07/08/25 03:45 Labs: Laboratory Results - last 24 hr 07/08/25 03:45 WBC 13.0 H RBC 4.38 L Hgb 12.9 L Hct 38.3 L MCV 87.4 MCH 29.3 MCHC 33.6 RDW 14.1 Plt Count 143 L Neut % (Auto) 91.7 H Lymph % (Auto) 3.1 L [place] % (Auto) 4.8 Eos % (Auto) 0.0 L Baso % (Auto) 0.4 Neut # (Auto) 18294 H Lymph # (Auto) 400 L [place] # (Auto) 600 Eos # (Auto) 0 Baso # (Auto) 0 Sodium 131 L Potassium 3.6 Chloride 101 Carbon Dioxide 22 BUN 21 H Creatinine 0.99 Estimated GFR > 60 BUN/Creatinine Ratio 21.2 Glucose 205 H Calcium 7.9 L Total Bilirubin 1.1 AST 89 H ALT 61 H Alkaline Phosphatase 91 Total Protein 6.2 L Albumin 3.3 L Globulin 2.9 Albumin/Globulin Ratio 1.1 PFS Medical History Sacral dysfunction Scarring Depression (~2001) Fragile skin Hip pain, bilateral Knee pain, bilateral Neck pain Arthritis PVC's (premature ventricular contractions) Pneumonia Diverticulosis Thoracogenic scoliosis, thoracolumbar region Chronic low back pain Diverticulitis LBBB (left bundle branch block) Chest pain HTN (hypertension) Hyperlipidemia Arrhythmia Surgical History History of lumbar spinal fusion (10/29/18) History of fusion of lumbar spine (10/10/18) Hx of tonsillectomy Hx of hernia repair History of lumbar fusion (~2006) Hx of shoulder surgery (~2004) Social History household members: none Smoking Status: Never smoker alcohol intake: current additional social history: son with new dx of metastatic prostate cancer. 06/2023 Patient was recently able to adopt REBEKAH THE CAT to replace REBEKAH the cat who 04/2023 2 large cocktails every night. used to drink more. [facility] 02/2023 Assessment & Plan Assessment and plan (1) Acute cholecystitis due to biliary calculus: Status: Acute Plan BB most likely has an ileus from his severe acute cholecystitis and perforation of his gallbladder with bilious ascites We will give a bolus of normal saline for low urine output and wait for ileus to resolve We will prescribe a PPI for reflux Follow labs and drain output for the next 24 hours Time-Based Coding :: [TOTAL MINUTES] spent with patient and on the chart (including review of chart, obtaining history, exam, reviewing outside data, placing orders, documenting exam and treatment plan, and counseling patient) on [DATE]. PROFEE Microarray Analyst Document charge(s): No
[2025-07-08] MEDS: MAG HYDROX/ALUMINUM/SIMETH SUS 30 ML, LIDOCAINE VISCOUS 2% 15 ML PO (11:06)
[2025-07-08 12:20] VITALS: BP 146/96; PULSE 100; RESP 20; TEMP 36.7; O2SAT 93
--- NOTE | 2025-07-08 15:11 | CM.DPC ---
DCP Cont: Per MD, pt had surgery yesterday and perforated shoaib and has drain in with significant output over the past 12 hours. Pt currently on room air but having some ongoing urinary retention. Not yet stable for discharge today. DANICA Michel
[2025-07-08 16:33] VITALS: BP 135/85; PULSE 90; RESP 14; TEMP 36.7; O2SAT 94
[2025-07-08] MEDS: CALCIUM CARBONATE 500 MG TAB 1000 MG PO (18:33)
[2025-07-08 20:00] VITALS: BP 143/87; PULSE 94; RESP 17; TEMP 37; O2SAT 95
[2025-07-08] MEDS: SENNOSIDES 8.6 MG TABLET 17.2 MG PO (20:29)
[2025-07-09] VITALS: BP 133/71; PULSE 69; RESP 16; TEMP 36.8; O2SAT 94
[2025-07-09] MEDS: SODIUM CHLORIDE 0.9% 1,000 ML 100 ML IV ×3 (02:09→22:35)
[2025-07-09] MEDS: PIPERACILLIN/TAZO 3.375 GM in SODIUM CHLORIDE 0.9% 100 ML IV ×3 (02:10→18:44)
[2025-07-09 04:00] VITALS: BP 141/74; PULSE 75; RESP 20; TEMP 36.8; O2SAT 95
--- NOTE | 2025-07-09 07:25 | P.PN_ITS ---
Subjective Subjective Interval history: 07/07: Admitted with the abdominal pain and found to have cholecystitis. Underwent cholecystectomy with finding of perforated necrotic gallbladder. S: He was not feeling great today. He was diffuse abdomen distention and some right upper quadrant tenderness. He was a lot of acid reflux which is a chronic problem for him. 07/07: cholecystectomy yesterday and had a very friable, partially ruptured gallbladder. A drain has been left in place with a lot of output. 07/08: Feeling fatigued, some pain, abdomen drain in place. He was having a lot of acid reflux. S: He was feeling much better today. He was having a lot of diarrhea, his abdomen is less distended, his acid reflux is better. He has still has significant drain O: VSS NAD, alert and oriented. Fluent speech. Lungs are clear, normal rate and effort. Heart is regular, no murmur gallop or rub. Abdomen is soft, distended and hypertympanic, drain in place. Extremities are free of edema. IMAGING: CTAP: Acute cholecystitis. No evidence of choledocholithiasis or acute pancreatitis. Colonic diverticulosis without evidence of diverticulitis. Diffuse bladder wall thickening, which may indicate chronic outlet obstruction versus cystitis. Correlate with urinalysis. ECG: ntervals [place] Rate: 86 P: DC: QRS: -35 QRSD: 150 T: 95 QT: 396 QTc: 473 Interpretive Statements Atrial fibrillation Left axis deviation Left bundle branch block A/P: 1. acute cholecystitis. S/P cholecystectomy with findings of rupture. 2. Atrial Fibrillation, stable. Not on chronic anticoagulation. 3. gall bladder pancreatitis- lipase is elevated, NPO, repeat level in am, added risk factor for surgery, 4. HTN- stable at this time. 5. LBBB. Stable 6. New diarrhea. PLAN: -Monitor drain -Monitor stools. -continue IV antibiotics. -PPI IV BID, TUMS PRN -OOB, PT He requires another night in the hospital for ongoing management. Anticipate 2 midnights in the hospital, supports inpatient status. Full code Exam Vital Signs (past 8 hours): - 07/09/25 00:00 07/09/25 04:00 Temperature 98.2 F 98.2 F Pulse Rate 69 75 Respiratory Rate 16 20 Blood Pressure 133/71 141/74 H Pulse Oximetry 94 95 Oxygen Flow Rate 0 0 Oxygen Delivery Method Room Air Oxygen Flow Rate 0 Objective Labs 07/08/25 03:45 07/08/25 03:45 PFSH Medical History Sacral dysfunction Scarring Depression (~2001) Fragile skin Hip pain, bilateral Knee pain, bilateral Neck pain Arthritis PVC's (premature ventricular contractions) Pneumonia Diverticulosis Thoracogenic scoliosis, thoracolumbar region Chronic low back pain Diverticulitis LBBB (left bundle branch block) Chest pain HTN (hypertension) Hyperlipidemia Arrhythmia Surgical History History of lumbar spinal fusion (10/29/18) History of fusion of lumbar spine (10/10/18) Hx of tonsillectomy Hx of hernia repair History of lumbar fusion (~2006) Hx of shoulder surgery (~2004) Social History household members: none Smoking Status: Never smoker alcohol intake: current additional social history: son with new dx of metastatic prostate cancer. 06/2023 Patient was recently able to adopt [employer] CAT to replace REBEKAH the cat who 04/2023 2 large cocktails every night. used to drink more. [facility] 02/2023 Assessment & Plan Time-Based Coding :: [TOTAL MINUTES] spent with patient and on the chart (including review of chart, obtaining history, exam, reviewing outside data, placing orders, documenting exam and treatment plan, and counseling patient) on [DATE].
[2025-07-09 08:00] VITALS: BP 131/68; PULSE 50; RESP 16; TEMP 36.7; O2SAT 93
--- NOTE | 2025-07-09 09:10 | P.PN_ITS ---
Subjective Subjective Date Patient Seen: 07/09/25 Time Patient Seen: 09:11 Interval history: BB is feeling better this morning. Last nausea and less pain. Tolerating small amounts of clear liquids but does not feel like he is ready to advance to regular diet. Exam Vital Signs (past 8 hours): - 07/09/25 04:00 07/09/25 08:00 Temperature 98.2 F 98.1 F Pulse Rate 75 50 L Respiratory Rate 20 16 Blood Pressure 141/74 H 131/68 Pulse Oximetry 95 93 Oxygen Flow Rate 0 0 Oxygen Delivery Method Room Air Oxygen Flow Rate 0 Narrative Exam Narrative: Abdomen is soft, nontender Incisions clean dry and intact Drain output is serosanguineous, nonbilious Objective Labs 07/08/25 03:45 07/08/25 03:45 PFSH Medical History Sacral dysfunction Scarring Depression (~2001) Fragile skin Hip pain, bilateral Knee pain, bilateral Neck pain Arthritis PVC's (premature ventricular contractions) Pneumonia Diverticulosis Thoracogenic scoliosis, thoracolumbar region Chronic low back pain Diverticulitis LBBB (left bundle branch block) Chest pain HTN (hypertension) Hyperlipidemia Arrhythmia Surgical History History of lumbar spinal fusion (10/29/18) History of fusion of lumbar spine (10/10/18) Hx of tonsillectomy Hx of hernia repair History of lumbar fusion (~2006) Hx of shoulder surgery (~2004) Social History household members: none Smoking Status: Never smoker alcohol intake: current additional social history: son with new dx of metastatic prostate cancer. 06/2023 Patient was recently able to adopt [employer] CAT to replace REBEKAH the cat who 04/2023 2 large cocktails every night. used to drink more. [facility] 02/2023 Assessment & Plan Assessment and plan (1) Acute cholecystitis due to biliary calculus: Status: Acute Plan Continue with clear liquids Advance to regular diet once he is hungry Time-Based Coding :: [TOTAL MINUTES] spent with patient and on the chart (including review of chart, obtaining history, exam, reviewing outside data, placing orders, documenting exam and treatment plan, and counseling patient) on [DATE]. PROFEE Technology Advisor Document charge(s): No
[2025-07-09] MEDS: ENOXAPARIN 40 MG/0.4 ML SYRINGE SUBCUT (10:13)
[2025-07-09] MEDS: METOPROLOL IR 50 MG TABLET 25 MG PO (10:13)
[2025-07-09] MEDS: PANTOPRAZOLE 40 MG VIAL IV ×2 (10:13→20:19)
--- NOTE | 2025-07-09 10:55 | CM.DPC ---
DCP Cont. Reviewed EMR and team rounds for pt's medical status and updates. Per Hospitalist, pt will need 2-more days before being medically stable for d/c. He is advancing his diet from fluids today. Called and updated his dtr, Daxa. His friend, Loulou (male), will transport pt on Saturday if pt has advanced his diet. Loulou's phone# [phone].
[2025-07-09 12:00] VITALS: RESP 18
[2025-07-09 16:00] VITALS: BP 115/69; PULSE 74; RESP 19; TEMP 36.3; O2SAT 96
--- NOTE | 2025-07-09 19:01 | PC.NURSE ---
Pt had relatively uneventful day. Denied discomfort. Continues w/ cl liq IVF infusing as per orders. Ind. in room Call light w/in reach, pt calls appropriately for needs. Continue w/ plan of care.
[2025-07-09 20:00] VITALS: BP 156/78; PULSE 77; RESP 20; TEMP 36.6; O2SAT 95
[2025-07-09] MEDS: FLUTICASONE 120 SPRAY/16 GM SPRAY.SUSP NASAL (20:24)
[2025-07-10] VITALS: BP 152/92; PULSE 62; RESP 20; TEMP 36.5; O2SAT 91
[2025-07-10] MEDS: PIPERACILLIN/TAZO 3.375 GM in SODIUM CHLORIDE 0.9% 100 ML IV (02:00)
[2025-07-10 04:00] VITALS: BP 153/69; PULSE 65; RESP 20; TEMP 36.7; O2SAT 94
[2025-07-10 07:00] VITALS: BP 153/76; PULSE 67; RESP 18; TEMP 36.2; O2SAT 95
[2025-07-10] MEDS: METOPROLOL IR 50 MG TABLET 25 MG PO (08:09)
[2025-07-10] MEDS: ENOXAPARIN 40 MG/0.4 ML SYRINGE SUBCUT (08:10)
[2025-07-10] MEDS: FLUTICASONE 120 SPRAY/16 GM SPRAY.SUSP NASAL (08:11)
--- NOTE | 2025-07-10 08:13 | P.PN_ITS ---
Subjective Subjective Date Patient Seen: 07/10/25 Interval history: Chief complaint: Abdominal pain secondary to gangrenous cholecystitis History of present illness: 07/06: 85 yo who started having abdominal pain on 07/05 and became more localized in the RUQ as dinorah pain became more severe. He started having N/V last Saturday night and Saturday morning so he came to his local clinic who then brought him to the ER. The pt has a long hx of atrial fibrillation & HTN for most of his life and sees Dr. Campos. He has refused anticoagulation in the past due to possible side effects. He has chronic back pain, which limits his exertional activity, but never gets chest pain or chest pressure. S: He was having ongoing right upper quadrant pain. He denies any chest pain. He was history of atrial fibrillation, but no history of myocardial infarction, CAD, or heart failure. Surgery did order an echo for preoperative evaluation. - The left ventricular contractility is normal. Estimated ejection fraction is greater than 55% with paradoxical inferoseptal motion. Mild concentric LVH. Unable to comment on diastolic function. - The right ventricular contractility is normal. - Significant biatrial enlargement. Mild right ventricular enlargement. The left ventricle is of normal size. - Moderate to severe mitral annular calcifications with mild mitral valvular stenosis. Mean gradient is 4.5 mmHg. - Tricuspid regurgitation noted on spectral display only with estimated pulmonary systolic artery pressures of 48 to 53 mmHg. - No obvious intracardiac shunts. - No obvious intracardiac masses nor thrombi. - No hemodynamically significant pericardial effusion. Hospital course: 07/07: Admitted with the abdominal pain and found to have cholecystitis. Underwent cholecystectomy with finding of perforated necrotic gallbladder. He was not feeling great today. He was diffuse abdomen distention and some right upper quadrant tenderness. He was a lot of acid reflux which is a chronic problem for him. Excerpt from operative report: Procedure & Clinicians Procedure: Laparoscopic cholecystectomy Same procedure(s) as scheduled: Yes Surgeon: Nathanael Cotton Assisted?: No Anesthesia Type: General Operative Notes Findings: Acute gangrenous cholecystitis with gallbladder perforation Applied: none Estimated Blood Loss (mL): 50 07/07: cholecystectomy yesterday and had a very friable, partially ruptured gallbladder. A drain has been left in place with a lot of output. 07/08: Feeling fatigued, some pain, abdomen drain in place. He was having a lot of acid reflux. 07/09: He was feeling much better today. He was having a lot of diarrhea, his abdomen is less distended, his acid reflux is better. He has still has significant drain tolerating small amounts of clear liquid diet but not ready to advance 07/10: Feeling much better no fevers or chills overnight hungry wants solid food Review of systems: No fevers chills rigors No chest pain palpitations shortness for breath No nausea vomiting No diarrhea Physical exam: Alert animated cogent HEENT unremarkable No labored respiration Abdomen nondistended bowel sounds present Serosanguineous fluid in CHA drain Assessment and plan: A/P: 1. acute cholecystitis. S/P cholecystectomy with findings of rupture. 2. Atrial Fibrillation, stable. Not on chronic anticoagulation. 3. gall bladder pancreatitis- lipase is elevated, NPO, repeat level in am, added risk factor for surgery, 4. HTN- stable at this time. 5. LBBB. Stable 6. New diarrhea. PLAN: -Monitor drain -Monitor stools. -continue IV antibiotics. -PPI IV BID, TUMS PRN -OOB, PT He requires another night in the hospital for ongoing management. Disposition: * Continued inpatient care likely 48 hours or more * Patient lives alone on [facility] Time based billing: * 35 minutes were involved in the evaluation of this patient including [id number] evaluation physical examination review of records review of objective laboratory and imaging findings discussion with care management Exam Vital Signs (past 8 hours): - 07/10/25 04:00 07/10/25 07:00 Temperature 98.1 F 97.2 F L Pulse Rate 65 67 Respiratory Rate 20 18 Blood Pressure 153/69 H 153/76 H Pulse Oximetry 94 95 Oxygen Flow Rate 0 Oxygen Delivery Method Room Air Oxygen Flow Rate 0 Objective Labs 07/08/25 03:45 07/08/25 03:45 [facility] Medical History Sacral dysfunction Scarring Depression (~2001) Fragile skin Hip pain, bilateral Knee pain, bilateral Neck pain Arthritis PVC's (premature ventricular contractions) Pneumonia Diverticulosis Thoracogenic scoliosis, thoracolumbar region Chronic low back pain Diverticulitis LBBB (left bundle branch block) Chest pain HTN (hypertension) Hyperlipidemia Arrhythmia Surgical History History of lumbar spinal fusion (10/29/18) History of fusion of lumbar spine (10/10/18) Hx of tonsillectomy Hx of hernia repair History of lumbar fusion (~2006) Hx of shoulder surgery (~2004) Social History household members: none Smoking Status: Never smoker alcohol intake: current additional social history: son with new dx of metastatic prostate cancer. 06/2023 Patient was recently able to adopt [employer] CAT to replace REBEKAH the cat who 04/2023 2 large cocktails every night. used to drink more. [facility] 02/2023 Assessment & Plan Time-Based Coding :: [TOTAL MINUTES] spent with patient and on the chart (including review of chart, obtaining history, exam, reviewing outside data, placing orders, documenting exam and treatment plan, and counseling patient) on [DATE].
[2025-07-10] MEDS: PANTOPRAZOLE 40 MG VIAL IV (08:14)
--- NOTE | 2025-07-10 10:54 | PM.PN.IH.1 ---
Subjective Subjective Date Patient Seen: 07/10/25 Time Patient Seen: 10:54 Interval history: Better today Tolerating clear liquids Exam Vital Signs (past 8 hours): - 07/10/25 04:00 07/10/25 07:00 Temperature 98.1 F 97.2 F L Pulse Rate 65 67 Respiratory Rate 20 18 Blood Pressure 153/69 H 153/76 H Pulse Oximetry 94 95 Oxygen Flow Rate 0 Oxygen Delivery Method Room Air Oxygen Flow Rate 0 Narrative Exam Narrative: Abdomen is soft Incisions clean dry and intact Drain output is primarily serous with a touch of sanguinous, no bile Objective Labs 07/08/25 03:45 07/08/25 03:45 PFSH Medical History Sacral dysfunction Scarring Depression (~2001) Fragile skin Hip pain, bilateral Knee pain, bilateral Neck pain Arthritis PVC's (premature ventricular contractions) Pneumonia Diverticulosis Thoracogenic scoliosis, thoracolumbar region Chronic low back pain Diverticulitis LBBB (left bundle branch block) Chest pain HTN (hypertension) Hyperlipidemia Arrhythmia Surgical History History of lumbar spinal fusion (10/29/18) History of fusion of lumbar spine (10/10/18) Hx of tonsillectomy Hx of hernia repair History of lumbar fusion (~2006) Hx of shoulder surgery (~2004) Social History household members: none Smoking Status: Never smoker alcohol intake: current additional social history: son with new dx of metastatic prostate cancer. 06/2023 Patient was recently able to adopt [employer] CAT to replace REBEKAH the cat who 04/2023 2 large cocktails every night. used to drink more. [facility] 02/2023 Assessment & Plan Assessment and plan (1) Acute cholecystitis due to biliary calculus: Status: Acute Plan Discontinued drain Advance diet Home when tolerating regular diet, possibly tomorrow Time-Based Coding :: [TOTAL MINUTES] spent with patient and on the chart (including review of chart, obtaining history, exam, reviewing outside data, placing orders, documenting exam and treatment plan, and counseling patient) on [DATE]. PROFEE Adjunct English Instructor Document charge(s): No
[2025-07-10 11:00] VITALS: BP 131/91; PULSE 72; RESP 18; TEMP 36.4; O2SAT 96
[2025-07-10 15:00] VITALS: BP 142/65; PULSE 61; RESP 16; TEMP 36.3; O2SAT 95
[2025-07-10 20:00] VITALS: BP 155/81; PULSE 69; RESP 20; TEMP 36.7; O2SAT 95
[2025-07-11] VITALS: BP 152/87; PULSE 88; RESP 20; TEMP 36.4; O2SAT 95
[2025-07-11 04:00] VITALS: BP 155/81; PULSE 85; RESP 20; TEMP 36.3; O2SAT 97
[2025-07-11 05:52] LABS: Culture Indicated Urine Cult Not Indicated
[2025-07-11 08:00] VITALS: BP 153/91; PULSE 82; RESP 16; TEMP 36.3; O2SAT 99
[2025-07-11] MEDS: ENOXAPARIN 40 MG/0.4 ML SYRINGE SUBCUT (09:06)
[2025-07-11] MEDS: METOPROLOL IR 50 MG TABLET 25 MG PO (09:08)
[2025-07-11] MEDS: FLUTICASONE 120 SPRAY/16 GM SPRAY.SUSP NASAL (09:08)
[2025-07-11] MEDS: SENNOSIDES 8.6 MG TABLET 17.2 MG PO (09:10)
--- NOTE | 2025-07-11 09:12 | PM.PN.IH.1 ---
Subjective Subjective Date Patient Seen: 07/11/25 Time Patient Seen: 09:12 Interval history: BB feels better today and is looking forward to going home. Exam Vital Signs (past 8 hours): - 07/11/25 04:00 07/11/25 08:00 Temperature 97.3 F L 97.4 F L Pulse Rate 85 82 Respiratory Rate 20 16 Blood Pressure 155/81 H 153/91 H Pulse Oximetry 97 99 Oxygen Flow Rate 0 Oxygen Delivery Method Room Air Oxygen Flow Rate 0 Narrative Exam Narrative: Abdomen is soft, nontender Objective Labs 07/08/25 03:45 07/08/25 03:45 Labs: Laboratory Results - last 24 hr 07/11/25 04:33 Urine RBC None seen Urine WBC None seen Ur Squamous Epith Cells 1-5 /hpf Urine Bacteria None seen Ur Culture Indicated? Cult not indicated Vol Urine Centrifuged 10ml (spun) PFSH Medical History Sacral dysfunction Scarring Depression (~2001) Fragile skin Hip pain, bilateral Knee pain, bilateral Neck pain Arthritis PVC's (premature ventricular contractions) Pneumonia Diverticulosis Thoracogenic scoliosis, thoracolumbar region Chronic low back pain Diverticulitis LBBB (left bundle branch block) Chest pain HTN (hypertension) Hyperlipidemia Arrhythmia Surgical History History of lumbar spinal fusion (10/29/18) History of fusion of lumbar spine (10/10/18) Hx of tonsillectomy Hx of hernia repair History of lumbar fusion (~2006) Hx of shoulder surgery (~2004) Social History household members: none Smoking Status: Never smoker alcohol intake: current additional social history: son with new dx of metastatic prostate cancer. 06/2023 Patient was recently able to adopt [employer] CAT to replace REBEKAH the cat who 04/2023 2 large cocktails every night. used to drink more. [facility] 02/2023 Assessment & Plan Assessment and plan (1) Acute cholecystitis due to biliary calculus: Status: Acute Plan Okay for discharge home today My office will arrange for a follow up appointment versus a telehealth appointment. Time-Based Coding :: [TOTAL MINUTES] spent with patient and on the chart (including review of chart, obtaining history, exam, reviewing outside data, placing orders, documenting exam and treatment plan, and counseling patient) on [DATE]. PROFEE Field Marketing Representative Document charge(s): No
--- NOTE | 2025-07-11 10:36 | P.DS_ITS ---
History of Present Illness History of Present Illness Date Patient Seen: 07/11/25 Chief complaint: Abdominal pain from gangrenous cholecystitis Narrative: Chief complaint: Abdominal pain secondary to gangrenous cholecystitis History of present illness: 07/06: 85 yo who started having abdominal pain on 07/05 and became more localized in the RUQ as dinorah pain became more severe. He started having N/V last Saturday night and Saturday morning so he came to his local clinic who then brought him to the ER. The pt has a long hx of atrial fibrillation & HTN for most of his life and sees Dr. Campos. He has refused anticoagulation in the past due to possible side effects. He has chronic back pain, which limits his exertional activity, but never gets chest pain or chest pressure. S: He was having ongoing right upper quadrant pain. He denies any chest pain. He was history of atrial fibrillation, but no history of myocardial infarction, CAD, or heart failure. Surgery did order an echo for preoperative evaluation. - The left ventricular contractility is normal. Estimated ejection fraction is greater than 55% with paradoxical inferoseptal motion. Mild concentric LVH. Unable to comment on diastolic function. - The right ventricular contractility is normal. - Significant biatrial enlargement. Mild right ventricular enlargement. The left ventricle is of normal size. - Moderate to severe mitral annular calcifications with mild mitral valvular stenosis. Mean gradient is 4.5 mmHg. - Tricuspid regurgitation noted on spectral display only with estimated pulmonary systolic artery pressures of 48 to 53 mmHg. - No obvious intracardiac shunts. - No obvious intracardiac masses nor thrombi. - No hemodynamically significant pericardial effusion. Hospital course: 07/07: Admitted with the abdominal pain and found to have cholecystitis. Underwent cholecystectomy with finding of perforated necrotic gallbladder. He was not feeling great today. He was diffuse abdomen distention and some right upper quadrant tenderness. He was a lot of acid reflux which is a chronic problem for him. Excerpt from operative report: Procedure & Clinicians Procedure: Laparoscopic cholecystectomy Same procedure(s) as scheduled: Yes Surgeon: Nathanael Cotton Assisted?: No Anesthesia Type: General Operative Notes Findings: Acute gangrenous cholecystitis with gallbladder perforation Applied: none Estimated Blood Loss (mL): 50 07/07: cholecystectomy yesterday and had a very friable, partially ruptured gallbladder. A drain has been left in place with a lot of output. 07/08: Feeling fatigued, some pain, abdomen drain in place. He was having a lot of acid reflux. 07/09: He was feeling much better today. He was having a lot of diarrhea, his abdomen is less distended, his acid reflux is better. He has still has significant drain tolerating small amounts of clear liquid diet but not ready to advance 07/10: Feeling much better no fevers or chills overnight hungry wants solid food 07/11: Tolerating regular diet discharged home Review of systems: No fevers chills rigors No chest pain palpitations shortness for breath No nausea vomiting No diarrhea Physical exam: Alert animated cogent HEENT unremarkable No labored respiration Abdomen nondistended bowel sounds present Serosanguineous fluid in CHA drain Assessment and plan: A/P: 1. acute cholecystitis. S/P cholecystectomy with findings of rupture. 2. Atrial Fibrillation, stable. Not on chronic anticoagulation. 3. gall bladder pancreatitis- lipase is elevated, NPO, repeat level in am, added risk factor for surgery, 4. HTN- stable at this time. 5. LBBB. Stable 6. New diarrhea. PLAN: -Monitor drain -Monitor stools. -continue IV antibiotics. -PPI IV BID, TUMS PRN -OOB, PT He requires another night in the hospital for ongoing management. Disposition: * Discharge to home * Patient lives alone on [facility] Time based billing: * 35 minutes were involved in the evaluation of this patient including [id number] evaluation physical examination review of records review of objective laboratory and imaging findings discussion with care management Discharge Providers Provider Date of admission: 07/06/25 20:08 Discharge Date: 07/11/25 Primary care physician: Sanjuana White MD Consults: 07/06/25 18:32 Consult to General Surgery Stat Comment: Consulting Provider: Aj aBin Reason for consultation: acute cholecystitis Has provider been notified: Yes 07/06/25 20:12 Consult to Physician Routine Comment: Consulting Provider: Aj Bain Reason for consultation: shoaib Has provider been notified: Yes 07/07/25 01:10 Consult to Cardiology Routine Comment: Consulting Provider: Coco Villanueva Reason for consultation: needs cardiac clearence Has provider been notified: No Discharge provider: Clint Le MD Exam Vital Signs (past 8 hours): - 07/11/25 04:00 07/11/25 08:00 Temperature 97.3 F L 97.4 F L Pulse Rate 85 82 Respiratory Rate 20 16 Blood Pressure 155/81 H 153/91 H Pulse Oximetry 97 99 Oxygen Flow Rate 0 Oxygen Delivery Method Room Air Oxygen Flow Rate 0 Objective Labs 07/08/25 03:45 07/08/25 03:45 Labs: Laboratory Results - last 24 hr 07/11/25 04:33 Urine RBC None seen Urine WBC None seen Ur Squamous Epith Cells 1-5 /hpf Urine Bacteria None seen Ur Culture Indicated? Cult not indicated Vol Urine Centrifuged 10ml (spun) [facility] Medical History Sacral dysfunction Scarring Depression (~2001) Fragile skin Hip pain, bilateral Knee pain, bilateral Neck pain Arthritis PVC's (premature ventricular contractions) Pneumonia Diverticulosis Thoracogenic scoliosis, thoracolumbar region Chronic low back pain Diverticulitis LBBB (left bundle branch block) Chest pain HTN (hypertension) Hyperlipidemia Arrhythmia Surgical History History of lumbar spinal fusion (10/29/18) History of fusion of lumbar spine (10/10/18) Hx of tonsillectomy Hx of hernia repair History of lumbar fusion (~2006) Hx of shoulder surgery (~2004) Social History household members: none Smoking Status: Never smoker alcohol intake: current additional social history: son with new dx of metastatic prostate cancer. 06/2023 Patient was recently able to adopt [employer] CAT to replace REBEKAH the cat who 04/2023 2 large cocktails every night. used to drink more. [facility] 02/2023 Discharge Plan Discharge Plan Patient Disposition: Home Provider Discharge Comment: No lifting greater than 30 lb for 2 weeks. Okay to remove the outer dressing and shower after 24 hours. Steri-Strips can get wet in the shower. Remove the Steri-Strips after 5-7 days. Discharge orders & Medications Prescriptions: New hydrocodone-acetaminophen 5-325 mg tablet 1 tab PO Q8H PRN (Reason: pain) Qty: 10 0RF Continued amlodipine 5 mg tablet 5 mg PO DAILY Qty: 90 3RF azelastine 137 mcg (0.1 %) spray,non-aerosol 2 spray intranasal BID Qty: 30 12RF Rx Instructions: administer into each nostril ipratropium bromide 21 mcg (0.03 %) spray,non-aerosol 2 spray intranasal TID Qty: 30 3RF Rx Instructions: administer into each nostril for nasal drainage. metoprolol tartrate 50 mg tablet 25 mg PO DAILY fluticasone propionate [Allergy Relief (fluticasone)] 50 mcg/actuation spray,suspension 1 spray intranasal BID Qty: 16 0RF Rx Instructions: administer into each nostril meloxicam 7.5 mg tablet 15 mg PO QAM Qty: 180 0RF tramadol 50 mg tablet 50 mg PO BID PRN (Reason: pain) Qty: 42 1RF Follow up/Referrals: Sanjuana White MD [Primary Care Provider, Family Practice] Visit Report/Discharge Packet Stand Alone Forms: Patient Portal/API, Stroke Signs & Symptoms Discharge Data Primary Care Provider: Sanjuana White
--- NOTE | 2025-07-11 11:39 | CM.DPC ---
DCP Discharge Home Per MD, pt tolerating advancing diet and medically stable to d/c home today and discharge orders placed and no identified barriers to discharge. Pt's friend has been planning to provide transport back home today and will arrive with POV to get pt back to [facility]. No further SW needs at this time. RN to provide discharge instructions. DANICA Michel
== END 2025-07-11 13:43 | disposition home or self-care (01) | DRG 417 ==
LOC: ED 18:45 → AC 20:09
PROVIDERS: Surgery; Admitting Provider Internal Medicine; Emergency Provider Emergency Medicine; PCP Family Medicine; Referring Provider Emergency Medicine; Visit Provider Internal Medicine
PROC: 0FT44ZZ Resection of Gallbladder, Percutaneous Endoscopic Approach (ICD-10-PCS; CPT 47562; principal; 2025-07-07 17:15)
DX: K80.00 Calculus of gallbladder with acute cholecystitis without obstruction (principal); K85.10 Biliary acute pancreatitis without necrosis or infection; K82.A2 Perforation of gallbladder in cholecystitis; I48.91 Unspecified atrial fibrillation; I10 Essential (primary) hypertension; I44.7 Left bundle-branch block, unspecified; K82.A1 Gangrene of gallbladder in cholecystitis; K21.9 Gastro-esophageal reflux disease without esophagitis; R19.7 Diarrhea, unspecified; G89.29 Other chronic pain; M54.50 Low back pain, unspecified; Z66 Do not resuscitate
CPT/HCPCS: 36415; 74177; 80053; 81003; 81015; 82962; 83605; 83690; 85025; 87040; 87086; 93005; 93306; 96361; 96365; 96366; 96367; 96375; 99284; J0696; J1100; J1171; J1650; J2272; J2405; J2470; J2543; J2704; J3010; J7030; J7050; J7120

== ENCOUNTER → 2025-07-13 08:48 | Outpatient (CLI) | payer MEDICARE, OTHER, SELFPAY ==
[2025-07-07 01:49] VITALS: BMI 25.7
== END ==
PROVIDERS: PCP Family Medicine; Visit Provider Physician Assistant Medical
DX: R10.31 Right lower quadrant pain (principal)
CPT/HCPCS: 87086

== ENCOUNTER → 2025-08-03 10:25 | Outpatient (CLI) | payer MEDICARE, OTHER, SELFPAY ==
[2025-07-07 01:49] VITALS: BMI 25.7
[2025-08-03 18:56] LABS: Add Manual Diff / Slide Review NO; Hematocrit 42.5 % (41-53); Hemoglobin 14.3 g/dL (13.5-17.5); Lymphocytes Absolute Auto 1600 /uL (1100-4500); Mean Corpuscular HGB Conc 33.5 % (30-36); Mean Corpuscular Hemoglobin 29.3 PG (26-34); Mean Corpuscular Volume 87.4 fL (80-100); Platelet Count 108 X10^3/uL (150-400)
[2025-08-03 19:06] LABS: Alanine Aminotransferase 30 IU/L (<50); Albumin 4.1 g/dL (3.5-5.0); Albumin Globulin Ratio 1.3 (1.0-2.8); Alkaline Phosphatase 93 U/L (38-126); Blood Urea Nitrogen 14 mg/dL (9-20); Calcium 9.0 mg/dL (8.4-10.2); Carbon Dioxide 26 mmol/L (22-32); Chloride 100 mmol/L (98-107); Cholesterol 165 mg/dL (140-199); Estimated Glomerular Filt Rate > 60 mL/min (>60); Globulin 3.1 g/dL (1.7-4.1); Glucose 172 mg/dL (70-99); HDL Cholesterol 45 mg/dL (40-60); HEMOLYSIS 21 (0-50); Potassium 4.5 mmol/L (3.4-5.1); Sodium 137 mmol/L (137-145); Total Protein 7.2 g/dL (6.3-8.2); Triglycerides 113 mg/dL (35-150)
[2025-08-03 19:19] LABS: Hemoglobin A1C% w Est Avg Glu 6.4 % (4.0-6.0)
[2025-08-03 19:26] LABS: Microalbumi Creatinin Ratio Ur 30.0 ug/mg CR (<30)
[2025-08-03 19:44] LABS: TSH w/ Reflex to FT4 1.33 uIU/mL (0.47-4.68)
[2025-08-03 20:03] LABS: Vitamin B12 366 pg/mL (239-931)
== END ==
PROVIDERS: PCP Family Medicine; Referring Provider Physician Assistant Medical; Visit Provider Physician Assistant Medical
DX: R53.83 Other fatigue (principal); E11.22 Type 2 diabetes mellitus with diabetic chronic kidney disease; N18.31 Chronic kidney disease, stage 3a; E78.00 Pure hypercholesterolemia, unspecified; R73.9 Hyperglycemia, unspecified; R10.31 Right lower quadrant pain
CPT/HCPCS: 80053; 80061; 82043; 82570; 82607; 83036; 84443; 85025